=== PATIENT | male | born 1950 | race Caucasian/White ===

== ENCOUNTER 2017-09-27 14:25 | Observation (INO) | payer MEDICARE, OTHER ==
[2017-09-27] MEDS ORDERED: NALOXONE 0.4 MG/ML 1 ML VIAL IV PRN (14:42)
[2017-09-27] MEDS ORDERED: ONDANSETRON 4 MG/2 ML VIAL IVP PRN (14:42)
[2017-09-27] MEDS ORDERED: predniSONE 50 MG TAB PO STA (14:45)
[2017-09-27] MEDS ORDERED: ALBUTEROL NEBULIZED 2.5 MG/3 ML INHALATION PRN (14:45)
--- NOTE | 2017-09-27 14:52 | ED ---
General Adult HPI - General Chief complaint: Chest Pain Stated complaint: Chest Pain Time Seen by Provider: 09/27/17 14:26 Source: patient, EMS, RN notes reviewed, old records reviewed Mode of arrival: EMS Limitations: no limitations - History of Present Illness Initial comments: 67-year-old male presents as a transfer from [facility] for evaluation of chest pain. Patient has history of COPD, reports a sharp left- sided chest pain which travels through to his back. Pain does not radiate to either shoulder or arm. Pain is described as severe. Symptoms have been present for approximately 3 days. Patient does have baseline cough, denies any worsening of his cough. Denies fever or chills. Denies diaphoresis. Patient has lower extremity swelling which she states is chronic. No history of CAD. Patient was sent for evaluation by cardiology. 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 - Related Data Home Medications Medication Instructions Recorded Confirmed Dipyridamole-Aspirin 200-25 mg 1 each PO BID 03/08/14 06/08/15 [Aggrenox 25MG -200MG] Multivitamins, Thera [Multivitamin 1 tab PO DAILY 03/08/14 06/08/15 (formulary)] Omeprazole 40 mg PO DAILY PRN 03/08/14 06/08/15 Aclidinium [place] [Tudorza 1 puff INHALATION RT-BID 06/08/15 06/08/15 Pressair] Atorvastatin [Lipitor] 40 mg PO DAILY 06/08/15 06/08/15 Fluticasone/Salmeterol [Advair 1 puff INHALATION RT-BID 06/08/15 06/08/15 250-50 Diskus] Ipratropium-Albuterol Nebulize 3 ml INHALATION RT-TID PRN 06/08/15 06/08/15 [Duoneb 0.5 mg-3 mg/3 ml Soln] Nicotine 7Mg/24Hr Patch [Habitrol] 1 patch TRANSDERM DAILY 06/08/15 06/08/15 Previous Rx's Medication Instructions Recorded Azithromycin [Zithromax] 250 mg PO DAILY 3 Days tab 06/11/15 predniSONE 60 mg PO DAILY 3 Days tab 06/11/15 Allergies Allergy/AdvReac Type Severity Reaction Status Date / Time No Known Allergies Allergy Verified 06/08/15 17:55 Review of Systems ROS Statement: Those systems with pertinent positive or pertinent negative responses have been documented in the HPI. ROS Other: All systems not noted in ROS Statement are negative. Past Medical History Past Medical History: CVA/TIA, Hypertension, Osteoarthritis (OA) Additional Past Medical History / Comment(s): chronic back pain, PTSD combat related, Hiatal Hernia, pvd, tia, tested 2013 for hiv(neg) per pt.stated carries antibodies for hepatitis a and b .HAS HAD DIFFICULTY SLEEPING FOR PAST 2 WEEKS D/T BREATHING PROBLEM. History of Any Multi-Drug Resistant Organisms: None Reported Past Surgical History: Adenoidectomy, Cholecystectomy, Tonsillectomy Additional Past Surgical History / Comment(s): deviated septum sx,rectal fissure surgery, hemorrhoidectomy,2010 lt leg sx-has loly in place. Past Anesthesia/Blood Transfusion Reactions: Motion Sickness Additional Past Anesthesia/Blood Transfusion Reaction / Comment(s): vertigo Past Psychological History: Anxiety, Depression, PTSD Smoking Status: Current some day smoker Past Alcohol Use History: None Reported Past Drug Use History: Marijuana - Past Family History Father Additional Family Medical History / Comment(s): father in airplane crash when in [employer]. pt only knows that alcoholism ran in his family Brother Family Medical History: Cancer Additional Family Medical History / Comment(s): Pancreatic Cancer Mother Family Medical History: Diabetes Mellitus General Exam Limitations: no limitations General appearance: alert, in no apparent distress Head exam: Present: atraumatic, normocephalic Eye exam: Present: normal appearance, PERRL ENT exam: Present: normal exam, normal oropharynx Neck exam: Present: normal inspection. Absent: tenderness, meningismus Respiratory exam: Present: wheezes. Absent: respiratory distress, rales, chest wall tenderness, accessory muscle use Cardiovascular Exam: Present: regular rate, normal rhythm GI/Abdominal exam: Present: soft. Absent: distended, tenderness Extremities exam: Present: pedal edema. Absent: calf tenderness Back exam: Present: normal inspection, full ROM Neurological exam: Present: alert, oriented X3, CN II-XII intact. Absent: motor sensory deficit Psychiatric exam: Present: normal affect, normal mood Skin exam: Present: warm, dry, intact. Absent: cyanosis, diaphoretic Course Vital Signs 09/27/17 14:26 Temperature 97.4 F L Pulse Rate 91 Respiratory 20 Rate Blood Pressure 155/72 O2 Sat by Pulse 96 Oximetry EKG Findings - EKG Comments: EKG Findings:: EKG shows normal sinus rhythm, low voltage QRS, ventricular rate 84, [place] interval 150, QRS duration 64, QTC 44, no ST segment elevation, appears unchanged from EKG performed earlier today Medical Decision Making - Medical Decision Making 59-year-old male presenting for evaluation of chest pain. Patient was transferred from [facility] for cardiology evaluation. EKG is repeated in the emergency department, no significant change. Patient's pain is atypical. Laboratory studies reviewed from [place], white blood cell count 10.2 which is normal, hemoglobin stable 14.6, BNP 33, sodium 137, potassium 4.3 , creatinine 1.1, troponin was negative. Influenza negative. Lipase [address] angiography was obtained, negative for PE or dissection. Chest x -ray read is unavailable and images are not able to be loaded at this time. I will attempt to obtain chest x-ray read. Patient will be admitted for further evaluation of chest pain, cardiology and pulmonology will be placed on consult. Disposition Clinical Impression: Chest pain, COPD exacerbation Disposition: ADMITTED IP TO THIS HOSP Condition: Stable Referrals: Lebron Waters DO [Primary Care Provider] - 1-2 days Decision to Admit Reason: Admit from EC Decision Date: 09/27/17 Decision Time: 14:51
[2017-09-27] MEDS ORDERED: ALBUTEROL NEBULIZED 2.5 MG/3 ML INHALATION SCH (16:00)
[2017-09-27 17:05] VITALS: BMI 35.5
[2017-09-27] MEDS: MORPHINE SULFATE 2 MG/ML SYRINGE IV PRN (17:14)
[2017-09-27] MEDS ORDERED: NICOTINE 7MG/24HR PATCH TRANSDERM STA (17:20)
[2017-09-27 18:21] LABS: Creatine Kinase 128 U/L (55-170)
[2017-09-27 18:29] LABS: Creatine Kinase MB 1.4 ng/mL (0.0-2.4); Troponin I <0.012 ng/mL (0.000-0.034)
[2017-09-27] MEDS ORDERED: IPRATROPIUM-ALBUTEROL 3 ML NEB INHALATION PRN ×2 (18:37)
[2017-09-27] MEDS: IPRATROPIUM-ALBUTEROL 3 ML NEB INHALATION SCH (19:34)
[2017-09-27] MEDS: SYMBICORT 80-4.5 MCG INHALER INHALATION SCH (19:34)
[2017-09-27 20:16] LABS: Glucose,Whole Blood 205 mg/dL (75-99)
[2017-09-27] MEDS: methylPREDNISolone SOD SUCCI 125 MG/2 ML VIAL IV SCH (20:58)
[2017-09-27] MEDS: INSULIN ASPART 100 UNIT/ML 1 ML 10 ML VIAL SQ SCH (20:59)
[2017-09-27] MEDS: ALPRAZolam 0.25 MG TAB PO SCH (20:59)
[2017-09-28] MEDS: methylPREDNISolone SOD SUCCI 125 MG/2 ML VIAL IV SCH ×3 (00:17→12:28)
[2017-09-28 00:20] LABS: Creatine Kinase 125 U/L (55-170)
[2017-09-28] MEDS: MORPHINE SULFATE 2 MG/ML SYRINGE IV PRN ×2 (00:20→04:28)
[2017-09-28 00:33] LABS: Creatine Kinase MB 1.4 ng/mL (0.0-2.4); Troponin I <0.012 ng/mL (0.000-0.034)
--- NOTE | 2017-09-28 00:40 | P.HPIM ---
History of Present Illness H&P Date: 09/27/17 Chief Complaint: Chest pain Patient is a 67-year-old male with a known history of COPD, TIA, history of smoking, chronic lower except swelling initially presented to [facility] with complaints of left-sided chest pain especially at the lower rib cage and radiates into the back. Which is sharp in nature. Denied any associated nausea vomiting or diaphoresis. No radiation. Pain has been present for the past 3 days. Patient says that he was previously admitted with pancreatitis. Otherwise patient denied any fever or chills. No recent illnesses or sick contacts. Patient says that he did have cardiac workup done about 6 years back at [facility]. Patient follows with pulmonary clinic. Patient was transferred to [facility] for further elevation of the chest pain. CT angiography was negative for any PE or dissection Chest x-ray showed no acute process Initial troponin negative EKG showed sinus rhythm Influenza negative Lipase 175, BNP 33 Review of Systems Constitutional: Patient denies any fever or chills . No generalized weakness or weight loss. Abdomen: Patient denied nausea vomiting and diarrhea and abdominal pain. Cardiovascular: Patient does have left-sided chest pain. No shortness of breath or worsening leg swelling Respiratory: Patient does have cough with no sputum production and shortness of breath Neurologic: Patient denied any numbness or tingling headache. Musculoskeletal: Patient denies any complaints of joint swelling or deformity. Skin: Negative Psychiatric: Negative Endocrine: No heat or cold intolerance. No recent weight gain. Genitourinary: No dysuria or hematuria. All other 14 point ROS negative except the above Past Medical History Past Medical History: CVA/TIA, Hypertension, Osteoarthritis (OA) Additional Past Medical History / Comment(s): chronic back pain, PTSD combat related, Hiatal Hernia, pvd, tia, tested 2013 for hiv(neg) per pt.stated carries antibodies for hepatitis a and b .HAS HAD DIFFICULTY SLEEPING FOR PAST 2 WEEKS D/T BREATHING PROBLEM. History of Any Multi-Drug Resistant Organisms: None Reported Past Surgical History: Adenoidectomy, Cholecystectomy, Tonsillectomy Additional Past Surgical History / Comment(s): deviated septum sx,rectal fissure surgery, hemorrhoidectomy,2010 lt leg sx-has loly in place. Past Anesthesia/Blood Transfusion Reactions: Motion Sickness Additional Past Anesthesia/Blood Transfusion Reaction / Comment(s): vertigo Past Psychological History: Anxiety, Depression, PTSD Smoking Status: Current some day smoker Past Alcohol Use History: None Reported Past Drug Use History: Marijuana - Past Family History Father Additional Family Medical History / Comment(s): father in airplane crash when in [place]. pt only knows that alcoholism ran in his family Brother Family Medical History: Cancer Additional Family Medical History / Comment(s): Pancreatic Cancer Mother Family Medical History: Diabetes Mellitus Medications and Allergies Home Medications Medication Instructions Recorded Confirmed Type Dipyridamole-Aspirin 200-25 mg 1 cap PO BID 03/08/14 09/27/17 History [Aggrenox 25MG -200MG] Multivitamins, Thera [Multivitamin 1 tab PO DAILY 03/08/14 09/27/17 History (formulary)] Fluticasone/Salmeterol [Advair 1 puff INHALATION RT-BID 06/08/15 09/27/17 History 250-50 Diskus] ALPRAZolam [Xanax] 0.25 mg PO DAILY 09/27/17 09/27/17 History Atorvastatin [Lipitor] 40 mg PO HS 09/27/17 09/27/17 History Fluticasone Nasal [place] [Flonase 2 spr EA NOSTRIL DAILY PRN 09/27/17 09/27/17 History Nasal [place]] Ipratropium/Albuterol Sulfate 1 puff INHALATION QID 09/27/17 09/27/17 History [Combivent Respimat Inhaler] Omeprazole [PriLOSEC] 20 mg PO AC-BRKFST 09/27/17 09/27/17 History Spironolactone [Aldactone] 25 mg PO DAILY 09/27/17 09/27/17 History guaiFENesin SYRUP 100MG/5ML 200 mg PO Q6H PRN 09/27/17 09/27/17 History [Robitussin] Allergies Allergy/AdvReac Type Severity Reaction Status Date / Time No Known Allergies Allergy Verified 09/27/17 14:51 Physical Exam Vitals: Vital Signs Temp Pulse Resp BP Pulse Ox 09/27/17 14:26 97.4 F L 91 20 155/72 96 Intake and Output 09/27/17 09/27/17 09/27/17 06:59 14:59 22:59 Other: Weight 99.79 kg Patient Weight 09/28/17 06:59 Weight 99.79 kg PHYSICAL EXAMINATION: Patient is lying in the bed comfortably, no acute distress, awake alert and oriented.. HEENT: Normocephalic. Neck is supple. Pupils reactive. Nostrils clear. Oral cavity is moist. Ears reveal no drainage. Neck reveals no JVD, carotid bruits, or thyromegaly. CHEST EXAMINATION: Trachea is central. Symmetrical expansion. Bilateral diminished air entry and wheezing positive CARDIAC: Normal S1, S2 with no gallops. No murmurs ABDOMEN: Soft. Bowel sounds normal. No organomegaly. No abdominal bruits. Extremities: 2+ edema. No clubbing or cyanosis Neurologically awake, alert, oriented x3 with well-coordinated movements. No focal deficits noted Skin: No rash or skin lesions. Psychiatric: Coperative. Nonsuicidal Musculoskeletal: No joint swelling or deformity. Normal range of motion. Thrombosis Risk Factor Assmnt - DVT/VTE Prophylaxis DVT/VTE Prophylaxis: Pharmacologic Prophylaxis ordered Assessment and Plan Assessment: Atypical chest pain rule out acute coronary syndrome Acute COPD exacerbation Morbid obesity with BMI 35.5 History of TIA Chronic lower swelling likely dependent edema. On spironolactone at home. Anxiety and PTSD History of smoking Osteoarthritis DVT prophylaxis Plan: Patient will be continued on telemetry monitoring along with serial EKG and troponins. Continue with the IV steroids and breathing treatments and follow closely. Continue with Aggrenox. Monitor CBG. Check his B A1c. Further recommendations based on the clinical course. Time with Patient: Greater than 30
[2017-09-28] MEDS: PANTOPRAZOLE 40 MG TABLET PO PRN ×2 (02:29→20:36)
[2017-09-28 06:48] LABS: Basophils % (A) 0 %; Eosinophils % (A) 0 %; HCT 47.5 % (39.0-53.0); HGB 14.5 gm/dL (13.0-17.5); Lymphocytes # (A) 1.7 k/uL (1.0-4.8); Lymphocytes % (A) 14 %; MCH 30.3 pg (25.0-35.0); MCHC 30.6 g/dL (31.0-37.0); MCV 99.1 fL (80.0-100.0); Macrocytosis Slight; Mean Platelet Volume 7.5; Monocytes # (A) 0.4 k/uL (0-1.0); Monocytes % (A) 3 %; Neutrophils # (A) 10.3 k/uL (1.3-7.7); Neutrophils % (A) 83 %; Platelet Count 284 k/uL (150-450); RBC 4.79 m/uL (4.30-5.90); RDW 15.5 % (11.5-15.5); WBC 12.4 k/uL (3.8-10.6)
[2017-09-28 07:23] LABS: ALT 42 U/L (21-72); AST 22 U/L (17-59); Albumin 3.8 g/dL (3.5-5.0); Alkaline Phosphatase 128 U/L (38-126); Anion Gap 7 mmol/L; Blood Urea Nitrogen 22 mg/dL (9-20); Calcium 10.1 mg/dL (8.4-10.2); Carbon Dioxide 30 mmol/L (22-30); Chloride 102 mmol/L (98-107); Glucose 153 mg/dL (74-99); Magnesium 2.2 mg/dL (1.6-2.3); Potassium 5.7 mmol/L (3.5-5.1); Sodium 139 mmol/L (137-145); Total Bilirubin 0.2 mg/dL (0.2-1.3); Total Protein 6.6 g/dL (6.3-8.2)
[2017-09-28] MEDS: IPRATROPIUM-ALBUTEROL 3 ML NEB INHALATION SCH ×4 (07:34→20:59)
[2017-09-28] MEDS: SYMBICORT 80-4.5 MCG INHALER INHALATION SCH ×2 (07:34→20:59)
[2017-09-28 07:40] LABS: Creatine Kinase 155 U/L (55-170)
[2017-09-28 07:50] LABS: Creatine Kinase MB 2.2 ng/mL (0.0-2.4); Troponin I <0.012 ng/mL (0.000-0.034)
[2017-09-28 08:11] LABS: Glucose,Whole Blood 164 mg/dL (75-99)
[2017-09-28] MEDS ORDERED: SPIRONOLACTONE 25 MG TAB PO SCH (09:00)
[2017-09-28] MEDS: ALPRAZolam 0.25 MG TAB PO SCH ×2 (09:20→22:15)
[2017-09-28] MEDS: DIPYRIDAMOLE-ASPIRIN 200-25 MG 1 EACH CPMP.12HR PO SCH ×2 (09:20→20:09)
[2017-09-28] MEDS: NICOTINE 7MG/24HR PATCH TRANSDERM SCH (09:20)
[2017-09-28] MEDS: ATORVASTATIN 40 MG TAB PO SCH (09:20)
[2017-09-28] MEDS: MULTIVITAMINS, THERA 1 EACH TAB PO SCH (09:21)
[2017-09-28] MEDS: HEPARIN SODIUM,PORCINE 5,000 UNIT/ML 1 ML VIAL SQ SCH ×2 (09:24→20:09)
[2017-09-28] MEDS: ACETAMINOPHEN TAB 325 MG TAB PO PRN ×2 (09:32→17:37)
[2017-09-28] MEDS: TORSEMIDE 20 MG TAB PO SCH (09:32)
[2017-09-28] MEDS: INSULIN ASPART 100 UNIT/ML 1 ML 10 ML VIAL SQ SCH ×4 (09:39→20:58)
--- NOTE | 2017-09-28 10:42 | P.CRDCN ---
History of Present Illness Consult date: 09/28/17 History of present illness: Mr. Rodriguez is a pleasant 67-year-old male with past medical history significant for hypertension, TIA, COPD, anxiety, PTSD and chronic tobacco abuse. He denies history of coronary artery disease. He has never seen a computer consultant for any reason. We have been asked to see him in consultation for complaints of chest pain. He presented to [facility] with complaints of chest pain similar to when he has had pneumonia in the past. Pneumonia was ruled out and he was ultimately transferred here for cardiac evaluation. The patient states for the past 3 days he has experienced a pain in the left mid back flank region that radiated around to the anterior chest. This pain is constant, described as pressure and has no aggravating factors. The pain is relieved with IV morphine and goes away completely for approximately 3 hours until it wears off. He denies associated shortness of breath, palpitations, dizziness, nausea, vomiting or diarrhea. He states he suffers from chronic lower extremity edema and is prescribe aldactone per his PCP. The swelling has not been any worse lately. He also denies orthopnea or PND. EKG reveals sinus mechanism with no acute ST or T-wave abnormalities with poor R -wave progression. Chest xray report from [place] reviewed. Laboratory data reviewed, WBC 12.4, hemoglobin 14.5, platelets 284, potassium 5.7, magnesium 2.2, creatinine 0.95, cardiac enzymes negative 3. Most recent echocardiogram performed May 2015 reveals preserved systolic LV function with ejection fraction 60-65%. Current cardiac medications include lipitor 40 mg daily and aldactone 25 mg daily. He continues to smoke approximately half pack per day. Review of Systems CONSTITUTIONAL: Denies fever. Denies chills. EYES: Denies blurred vision. Denies vision changes. Denies eye pain. EARS, NOSE, MOUTH & THROAT: Denies headache. Denies sore throat. Denies ear pain. CARDIOVASCULAR: Denies chest pain. Denies shortness of breath. Denies orthopnea. Denies PND. Denies palpitations. RESPIRATORY: Denies cough. GASTROINTESTINAL: Denies abdominal pain. Denies diarrhea. Denies constipation. Denies nausea. Denies vomiting. MUSCULOSKELETAL: Complains of pain to left mid back/flank region with radiation to left anterior chest wall. INTEGUMENTARY: Denies pruitis. Denies rash. NEUROLOGIC: Denies numbness. Denies tingling. Denies weakness. PSYCHIATRIC: Denies anxiety. Denies depression. ENDOCRINE: Denies fatigue. Denies weight change. Denies polydipsia. Denies polyurina. GENITOURINARY: Denies burning, hematuria or urgency with micturation. HEMATOLOGIC: Denies history of anemia. Denies bleeding. Past Medical History Past Medical History: CVA/TIA, Hypertension, Osteoarthritis (OA) Additional Past Medical History / Comment(s): chronic back pain, PTSD combat related, Hiatal Hernia, pvd, tia, tested 2013 for hiv(neg) per pt.stated carries antibodies for hepatitis a and b .HAS HAD DIFFICULTY SLEEPING FOR PAST 2 WEEKS D/T BREATHING PROBLEM. History of Any Multi-Drug Resistant Organisms: None Reported Past Surgical History: Adenoidectomy, Cholecystectomy, Tonsillectomy Additional Past Surgical History / Comment(s): deviated septum sx,rectal fissure surgery, hemorrhoidectomy,2010 lt leg sx-has loly in place. Past Anesthesia/Blood Transfusion Reactions: Motion Sickness Additional Past Anesthesia/Blood Transfusion Reaction / Comment(s): vertigo Past Psychological History: Anxiety, Depression, PTSD Smoking Status: Current some day smoker Past Alcohol Use History: None Reported Past Drug Use History: Marijuana - Past Family History Father Additional Family Medical History / Comment(s): father in airplane crash when in [place]. pt only knows that alcoholism ran in his family Brother Family Medical History: Cancer Additional Family Medical History / Comment(s): Pancreatic Cancer Mother Family Medical History: Diabetes Mellitus Medications and Allergies Home Medications Medication Instructions Recorded Confirmed Type Dipyridamole-Aspirin 200-25 mg 1 cap PO BID 03/08/14 09/27/17 History [Aggrenox 25MG -200MG] Multivitamins, Thera [Multivitamin 1 tab PO DAILY 03/08/14 09/27/17 History (formulary)] Fluticasone/Salmeterol [Advair 1 puff INHALATION RT-BID 06/08/15 09/27/17 History 250-50 Diskus] ALPRAZolam [Xanax] 0.25 mg PO DAILY 09/27/17 09/27/17 History Atorvastatin [Lipitor] 40 mg PO HS 09/27/17 09/27/17 History Fluticasone Nasal [place] [Flonase 2 spr EA NOSTRIL DAILY PRN 09/27/17 09/27/17 History Nasal [place]] Ipratropium/Albuterol Sulfate 1 puff INHALATION QID 09/27/17 09/27/17 History [Combivent Respimat Inhaler] Omeprazole [PriLOSEC] 20 mg PO AC-BRKFST 09/27/17 09/27/17 History Spironolactone [Aldactone] 25 mg PO DAILY 09/27/17 09/27/17 History guaiFENesin SYRUP 100MG/5ML 200 mg PO Q6H PRN 09/27/17 09/27/17 History [Robitussin] Allergies Allergy/AdvReac Type Severity Reaction Status Date / Time No Known Allergies Allergy Verified 09/27/17 14:51 Physical Exam Vitals: Vital Signs Temp Pulse Pulse Resp BP BP Pulse Ox 09/28/17 08:00 97.8 F 77 16 134/73 93 L 09/28/17 07:47 75 09/28/17 07:36 75 09/28/17 05:12 69 09/28/17 05:06 67 09/28/17 04:00 97.9 F 73 18 146/68 92 L 09/28/17 03:20 18 09/28/17 00:00 18 09/27/17 22:33 82 18 139/75 90 L 09/27/17 20:00 18 09/27/17 19:51 90 09/27/17 19:35 90 94 L 09/27/17 19:13 98 F 86 18 128/67 91 L 09/27/17 16:08 97.9 F 89 16 147/75 94 L 09/27/17 16:00 89 16 09/27/17 15:30 97.5 F L 80 20 140/72 98 09/27/17 14:26 97.4 F L 91 20 155/72 96 Intake and Output 09/27/17 09/28/17 09/28/17 22:59 06:59 14:59 Other: Voiding Method Toilet Toilet Toilet # Voids 1 1 Weight 99.79 kg Blood pressure 134/73 heart rate 77 afebrile. GENERAL: This is a 67-year-old male in no apparent distress at the time of my examination. HEENT: Head is atraumatic, normocephalic. Pupils are equal, round. Sclerae anicteric. Conjunctivae are clear. Mucous membranes of the mouth are moist. Neck is supple. There is no jugular venous distention. No carotid bruit is heard. LUNGS: Clear to auscultation no wheezes, rales or rhonchi. No chest wall tenderness is noted on palpation or with deep breathing. Diminished b/l. HEART: Regular rate and rhythm without murmurs, rubs or gallops. S1 and S2 heard. ABDOMEN: Soft, nontender. Bowel sounds are heard. No organomegaly noted. EXTREMITIES: Bilateral lower extremity, non-pitting edema. No calf tenderness noted. NEUROLOGIC: Patient is awake, alert and oriented x3. VASCULAR: Radial and dorsalis pedis pulses 2+ and strong. Results 09/28/17 06:23 09/28/17 06:23 Cardiac Enzymes 09/27/17 09/27/17 09/28/17 Range/Units 17:40 23:34 06:23 AST 22 (17-59) U/L CK-MB (CK-2) 1.4 1.4 (0.0-2.4) ng/mL Troponin I <0.012 <0.012 (0.000-0.034) ng/mL 09/28/17 Range/Units 06:23 AST (17-59) U/L CK-MB (CK-2) 2.2 (0.0-2.4) ng/mL Troponin I <0.012 (0.000-0.034) ng/mL CBC 09/28/17 Range/Units 06:23 WBC 12.4 H (3.8-10.6) k/uL RBC 4.79 (4.30-5.90) m/uL Hgb 14.5 (13.0-17.5) gm/dL Hct 47.5 (39.0-53.0) % Plt Count 284 (150-450) k/uL Comprehensive Metabolic Panel 09/28/17 Range/Units 06:23 Sodium 139 (137-145) mmol/L Potassium 5.7 H (3.5-5.1) mmol/L Chloride 102 (98-107) mmol/L Carbon Dioxide 30 (22-30) mmol/L BUN 22 H (9-20) mg/dL Creatinine 0.95 (0.66-1.25) mg/dL Glucose 153 H (74-99) mg/dL Calcium 10.1 (8.4-10.2) mg/dL AST 22 (17-59) U/L ALT 42 (21-72) U/L Alkaline Phosphatase 128 H (38-126) U/L Total Protein 6.6 (6.3-8.2) g/dL Albumin 3.8 (3.5-5.0) g/dL Current Medications Generic Name Dose Route Start Last Admin Trade Name Freq PRN Reason Stop Dose Admin Acetaminophen 650 mg 09/27/17 14:42 09/28/17 09:32 Tylenol Tab PO 650 mg Q6HR PRN Administration Mild Pain or Fever > 100.5 Albuterol/Ipratropium 3 ml 09/27/17 18:37 09/28/17 05:04 Duoneb 0.5 Mg-3 Mg/3 Ml Soln INHALATION 3 ml RT-Q2H PRN Administration Shortness Of Breath Or Wheezing Albuterol/Ipratropium 3 ml 09/27/17 18:42 09/28/17 07:34 Duoneb 0.5 Mg-3 Mg/3 Ml Soln INHALATION 3 ml RT-QID DEIDRE Administration Alprazolam 0.25 mg 09/27/17 18:45 09/28/17 09:20 Xanax PO 0.25 mg DAILY DEIDRE Administration Atorvastatin Calcium 40 mg 09/28/17 09:00 09/28/17 09:20 Lipitor PO 40 mg DAILY DEIDRE Administration Budesonide/Formoterol Fumarate 2 puff 09/27/17 20:00 09/28/17 07:34 Symbicort 80-4.5 Mcg Inhaler INHALATION 2 puff RT-BID DEIDRE Administration Dipyridamole/Aspirin 1 each 09/28/17 09:00 09/28/17 09:20 Aggrenox PO 1 each BID DEIDRE Administration Heparin Sodium (Porcine) 5,000 unit 09/28/17 09:00 09/28/17 09:24 Heparin SQ 5,000 unit Q12HR DEIDRE Administration Insulin Aspart 0 unit 09/27/17 21:00 09/28/17 09:39 Novolog SQ 2 unit ACHS DEIDRE Administration Protocol Methylprednisolone Sodium Succinate 60 mg 09/27/17 18:30 09/28/17 05:00 Solu-Medrol IV 60 mg Q6HR DEIDRE Administration Morphine Sulfate 4 mg 09/27/17 14:42 09/28/17 04:28 Morphine Sulfate (Inj) IV 4 mg Q4HR PRN Administration Severe Pain Multivitamins 1 each 09/28/17 09:00 09/28/17 09:21 Theragran PO 1 each DAILY DEIDRE Administration Naloxone HCl 0.2 mg 09/27/17 14:42 Narcan IV Q2M PRN Opioid Reversal Nicotine 1 patch 09/28/17 09:00 09/28/17 09:20 Habitrol 7mg/24hr Patch TRANSDERM 1 patch DAILY DEIDRE Administration Ondansetron HCl 4 mg 09/27/17 14:42 Zofran IVP Q8HR PRN Nausea And Vomiting Pantoprazole Sodium 40 mg 09/27/17 14:45 09/28/17 02:29 Protonix PO 40 mg AC-BRKFST PRN Administration Heartburn Torsemide 20 mg 09/28/17 09:15 09/28/17 09:32 Demadex PO 20 mg DAILY DEIDRE Administration Intake and Output 09/27/17 09/28/17 09/28/17 22:59 06:59 14:59 Other: Voiding Method Toilet Toilet Toilet # Voids 1 1 Weight 99.79 kg 09/28/17 06:23 09/28/17 06:23 Assessment and Plan Assessment: ASSESSMENT 1. Chest pain, atypical with negative cardiac enzymes. Acute coronary event has been ruled out. 2. Dyslidemia 3. Chronic lower extremity edema 4. COPD 5. Chronic tobacco abuse PLAN Obtain 2-D echocardiogram and Doppler study to assess cardiac structure and function. Discontinue spironolactone and start Demadex 20 mg daily. No further cardiac work-up at this time. This is more COPD related to acute exacerbation. Continue with pulmonology consultation as previously ordered. Follow-up with primary care physician upon discharge. Thank you kindly for this consultation. The above impression and plan of care have been discussed and directed by the signing physician. Elli Acuna, nurse practitioner, acting as scribe for signing physician.
[2017-09-28 11:30] LABS: Appearance,Urine Clear (Clear); Bilirubin,Urine Negative (Negative); Blood,Urine Negative (Negative); Color,Urine Light Yellow; Glucose,Urine (UA) Negative (Negative); Ketones,Urine Negative (Negative); Leukocyte Esterase,Urine Trace (Negative); Mucus,Urine Rare /hpf; Nitrite,Urine Negative (Negative); Protein,Urine Negative (Negative); Urobilinogen,Urine <2.0 mg/dL (<2.0); WBC,Urine 2 /hpf (0-5)
[2017-09-28] MEDS ORDERED: DOXYCYCLINE 50 MG CAP PO SCH (11:45)
--- NOTE | 2017-09-28 11:48 | ECHOF ---
Referral Reason:chest pain MEASUREMENTS -------- HEIGHT: 167.6 cm WEIGHT: 99.8 kg BP: 134/73 RVIDd: 2.9 cm (< 3.3) IVSd: 1.2 cm (0.6 - 1.1) LVIDd: 3.7 cm (3.9 - 5.3) LVPWd: 1.1 cm (0.6 - 1.1) IVSs: 1.6 cm LVIDs: 2.1 cm LVPWs: 1.5 cm LA Diam: 2.9 cm (2.7 - 3.8) LAESV Index (A-L): 29.15 ml/m Ao Diam: 3.2 cm (2.0 - 3.7) AV Cusp: 2.4 cm (1.5 - 2.6) MV EXCURSION: 13.059 mm (> 18.000) MV EF SLOPE: 63 mm/s (70 - 150) EPSS: 0.4 cm MV E Grayson: 0.99 m/s MV DecT: 251 ms MV A Grayson: 1.16 m/s MV E/A Ratio: 0.86 AV maxP.01 mmHg AV meanP.79 mmHg FINDINGS -------- Sinus rhythm. This was a technically good study. The left ventricular size is normal. There is borderline concentric left ventricular hypertrophy. Overall left ventricular systolic function is normal with, an EF between 60 - 65 %. The right ventricle is normal in size. LA is midly dilated 29-33ml/m2. The right atrium is normal in size. There is mild aortic valve sclerosis. Mild mitral annular calcification present. There is trace mitral regurgitation. No regurgitation noted Trace/mild (physiologic) pulmonic regurgitation. The aortic root size is normal. Normal inferior vena cava with normal inspiratory collapse consistent with estimated right atrial pre ssure of 5 mmHg. There is no pericardial effusion. CONCLUSIONS -------- 1. Sinus rhythm. 2. This was a technically good study. 3. The left ventricular size is normal. 4. There is borderline concentric left ventricular hypertrophy. 5. Overall left ventricular systolic function is normal with, an EF between 60 - 65 %. 6. The right ventricle is normal in size. 7. LA is midly dilated 29-33ml/m2. 8. The right atrium is normal in size. 9. There is mild aortic valve sclerosis. 10. Mild mitral annular calcification present. 11. There is trace mitral regurgitation. 12. No regurgitation noted 13. Trace/mild (physiologic) pulmonic regurgitation. 14. The aortic root size is normal. 15. Normal inferior vena cava with normal inspiratory collapse consistent with estimated right atrial pressure of 5 mmHg. 16. There is no pericardial effusion. LOCKSTITCH POCKET SETTER: Melissa Hernandez RDCS
[2017-09-28 12:21] LABS: Glucose,Whole Blood 236 mg/dL (75-99)
[2017-09-28 12:23] LABS: Hemoglobin A1C 6.1 % (4.0-6.0)
--- NOTE | 2017-09-28 14:52 | P.CNPUL ---
History of Present Illness Consult date: 09/28/17 Requesting physician: Lit Winter Reason for consult: cough, chest pain, COPD Chief complaint: Left posterior lower chest pain History of present illness: Anil is a 67-year-old white male patient that sees Dr. Leonardo in our office for his history of moderately severe COPD, with a baseline FEV1 of 53% of predicted value, presented to the [facility] on 09/27/2017 with complaints of left posterior chest wall pain, described it as burning, coming in waves. Denied any fever, or chills. His discomfort did not change with deep inspiration. He denies any increased coughing from his usual baseline, denied any increased shortness of breath. Does have some baseline shortness of breath. No nausea or vomiting. No abdominal pain no symptoms of dysuria, urinary frequency or urgency. Denies any sick contacts. Denies any increased sputum production or hemoptysis. Denies any wheezing. He is a current smoker, currently down to 2 less than a pack a day. Did complain of some increased swelling in his lower legs. Does not wear oxygen at home, his maintenance inhalers include Advair and Combivent respimat inhaler. He did have a CTA chest at the [facility] which showed no evidence for pulmonary embolism, no thoracic aneurysm, no lymphadenopathy, no pleural effusion, and no pneumonia, he was positive for mild cardiomegaly and minimal atelectasis and right middle lobe. Influenza screen was negative, urinalysis showed slightly cloudy urine with a small amount of leukocyte esterase, negative bacteria. Does have an underlying history of obstructive sleep apnea, supposed to have a polysomnography test, does not currently have a sleep apnea device at home. Lab work shows WBC of 12.4, hemoglobin 14.5, sodium 139, potassium is 5.7, BUN of 22, and creatinine of 0.95. Troponins were negative 3. EKG showed sinus mechanism with no acute ST or T-wave abnormalities with poor R-wave progression. Cardiology was consulted for evaluation of his chest pain. Review of Systems All systems: negative Constitutional: Denies chills, Denies fever Eyes: denies blurred vision, denies pain Ears, nose, mouth and throat: Denies headache, Denies sore throat Cardiovascular: Denies chest pain, Denies shortness of breath Respiratory: Denies cough Gastrointestinal: Denies abdominal pain, Denies diarrhea, Denies nausea, Denies vomiting Musculoskeletal: Denies myalgias Integumentary: Denies pruritus, Denies rash Neurological: Denies numbness, Denies weakness Psychiatric: Denies anxiety, Denies depression Endocrine: Denies fatigue, Denies weight change Past Medical History Past Medical History: CVA/TIA, Hypertension, Osteoarthritis (OA) Additional Past Medical History / Comment(s): chronic back pain, PTSD combat related, Hiatal Hernia, pvd, tia, tested 2013 for hiv(neg) per pt.stated carries antibodies for hepatitis a and b .HAS HAD DIFFICULTY SLEEPING FOR PAST 2 WEEKS D/T BREATHING PROBLEM. History of Any Multi-Drug Resistant Organisms: None Reported Past Surgical History: Adenoidectomy, Cholecystectomy, Tonsillectomy Additional Past Surgical History / Comment(s): deviated septum sx,rectal fissure surgery, hemorrhoidectomy,2010 lt leg sx-has loly in place. Past Anesthesia/Blood Transfusion Reactions: Motion Sickness Additional Past Anesthesia/Blood Transfusion Reaction / Comment(s): vertigo Past Psychological History: Anxiety, Depression, PTSD Smoking Status: Current some day smoker Past Alcohol Use History: None Reported Past Drug Use History: Marijuana - Past Family History Father Additional Family Medical History / Comment(s): father in airplane crash when in [place]. pt only knows that alcoholism ran in his family Brother Family Medical History: Cancer Additional Family Medical History / Comment(s): Pancreatic Cancer Mother Family Medical History: Diabetes Mellitus Medications and Allergies Home Medications Medication Instructions Recorded Confirmed Type Dipyridamole-Aspirin 200-25 mg 1 cap PO BID 03/08/14 09/27/17 History [Aggrenox 25MG -200MG] Multivitamins, Thera [Multivitamin 1 tab PO DAILY 03/08/14 09/27/17 History (formulary)] Fluticasone/Salmeterol [Advair 1 puff INHALATION RT-BID 06/08/15 09/27/17 History 250-50 Diskus] ALPRAZolam [Xanax] 0.25 mg PO DAILY 09/27/17 09/27/17 History Atorvastatin [Lipitor] 40 mg PO HS 09/27/17 09/27/17 History Fluticasone Nasal [place] [Flonase 2 spr EA NOSTRIL DAILY PRN 09/27/17 09/27/17 History Nasal [place]] Ipratropium/Albuterol Sulfate 1 puff INHALATION QID 09/27/17 09/27/17 History [Combivent Respimat Inhaler] Omeprazole [PriLOSEC] 20 mg PO AC-BRKFST 09/27/17 09/27/17 History Spironolactone [Aldactone] 25 mg PO DAILY 09/27/17 09/27/17 History guaiFENesin SYRUP 100MG/5ML 200 mg PO Q6H PRN 09/27/17 09/27/17 History [Robitussin] Allergies Allergy/AdvReac Type Severity Reaction Status Date / Time No Known Allergies Allergy Verified 09/27/17 14:51 Physical Exam Vitals: Vital Signs Temp Pulse Pulse Resp BP BP Pulse Ox 09/28/17 08:00 97.8 F 77 16 134/73 93 L 09/28/17 07:47 75 09/28/17 07:36 75 09/28/17 05:12 69 09/28/17 05:06 67 09/28/17 04:00 97.9 F 73 18 146/68 92 L 09/28/17 03:20 18 09/28/17 00:00 18 09/27/17 22:33 82 18 139/75 90 L 09/27/17 20:00 18 09/27/17 19:51 90 09/27/17 19:35 90 94 L 09/27/17 19:13 98 F 86 18 128/67 91 L 09/27/17 16:08 97.9 F 89 16 147/75 94 L 09/27/17 16:00 89 16 09/27/17 15:30 97.5 F L 80 20 140/72 98 09/27/17 14:26 97.4 F L 91 20 155/72 96 Intake and Output 09/27/17 09/28/17 09/28/17 22:59 06:59 14:59 Other: Voiding Method Toilet Toilet Toilet # Voids 1 1 Weight 99.79 kg GENERAL EXAM: Alert, active, comfortable in no apparent distress. HEAD: Normocephalic/atraumatic. EYES: Normal reaction of pupils, equal size. Conjunctiva pink, sclera white. NOSE: Clear with pink turbinates. THROAT: No erythema or exudates. NECK: No masses, no JVD, no thyroid enlargement, no adenopathy. CHEST: No chest wall deformity. Symmetrical expansion. LUNGS: Equal air entry with no crackles, wheeze, rhonchi or dullness. Lung sounds are clear, diminished at the bases. CVS: Regular rate and rhythm, normal S1 and S2, no gallops, no murmurs, no rubs ABDOMEN: Soft, nontender. No hepatosplenomegaly, normal bowel sounds, no guarding or rigidity. EXTREMITIES: No clubbing, no cyanosis, 2+ pulses and upper and lower extremities. Bilateral lower extremities are positive for 1+ swelling, with redness and scaly cracking skin MUSCULOSKELETAL: Muscle strength and tone normal. SPINE: No scoliosis or deformity SKIN: No rashes CENTRAL NERVOUS SYSTEM: Alert and oriented -3. No focal deficits, tone is normal in all 4 extremities. PSYCHIATRIC: Alert and oriented -3. Appropriate affect. Intact judgment and insight. Results - Laboratory Findings CBC and BMP: 09/28/17 06:23 09/28/17 06:23 Abnormal lab findings: Abnormal Labs 09/27/17 09/28/17 09/28/17 20:14 06:23 06:23 WBC 12.4 H MCHC 30.6 L Neutrophils # 10.3 H Potassium 5.7 H BUN 22 H Glucose 153 H POC Glucose (mg/dL) 205 H Alkaline Phosphatase 128 H Ur Leukocyte Esterase Urine Mucus 09/28/17 09/28/17 08:08 11:14 WBC MCHC Neutrophils # Potassium BUN Glucose POC Glucose (mg/dL) 164 H Alkaline Phosphatase Ur Leukocyte Esterase Trace H Urine Mucus Rare H - Diagnostic Findings Additional studies: CTA results from the [facility] reviewed, twelve-lead EKG, urinalysis , lab work from the [facility] reviewed. Assessment and Plan Plan: Asthma: #1. Atypical chest pain of unclear etiology, likely musculoskeletal in nature. Patient describes left posterior chest wall pain, CTA chest done the [facility] on 09/27/2017 showed no evidence of pneumonia, no evidence of pulmonary embolism, no thoracic aneurysm, no lymphadenopathy, no pleural effusion. Was positive for mild cardiomegaly and minimal atelectasis and right middle lobe. Cardiology has evaluated the patient, trops were negative 3. No significant leukocytosis, influenza screen was negative, chest x-ray showed no acute process #2. Moderately severe COPD, with a baseline FEV1 of 53% of predicted value. #3. Nicotine dependence, ongoing, currently down to less than a day. #4. Osteoarthritis #5. Hypertension #6. History of PTSD, anxiety, depression #7. No hernia #8. Obstructive sleep apnea, awaiting sleep study Plan Lab work, CTA and chest x-ray were reviewed, there is no evidence of any active pulmonary process. Smoking cessation was again strongly advised. Patient has received some IV doses of Solu-Medrol, feeling better. Cardiology consultation was reviewed. Patient can be discharged home today. I performed a history & physical examination of the patient and discussed their management with my nurse practitioner, Miranda Flannery. I reviewed the nurse practitioner's note and agree with the documented findings and plan of care. Lung sounds are clear. The findings and the impression was discussed with the patient. I attest to the documentation by the nurse practitioner. Time with Patient: Greater than 30
[2017-09-28 17:02] LABS: Glucose,Whole Blood 192 mg/dL (75-99)
[2017-09-28] MEDS: predniSONE 20 MG TAB PO SCH (17:37)
[2017-09-28 20:53] LABS: Glucose,Whole Blood 205 mg/dL (75-99)
[2017-09-28 22:22] VITALS: RESP 18
--- NOTE | 2017-09-29 01:00 | P.PN ---
Subjective Progress Note Date: 09/28/17 Principal diagnosis: COPD with exacerbation Patient is a 67-year-old male with a known history of COPD, TIA, history of smoking, chronic lower except swelling initially presented to [facility] with complaints of left-sided chest pain especially at the lower rib cage and radiates into the back. Which is sharp in nature. Denied any associated nausea vomiting or diaphoresis. No radiation. Pain has been present for the past 3 days. Patient says that he was previously admitted with pancreatitis. Otherwise patient denied any fever or chills. No recent illnesses or sick contacts. Patient says that he did have cardiac workup done about 6 years back at [facility]. Patient follows with pulmonary clinic. Patient was transferred to [facility] for further elevation of the chest pain. CT angiography was negative for any PE or dissection Chest x-ray showed no acute process Initial troponin negative EKG showed sinus rhythm Influenza negative Lipase 175, BNP 33 09/28/2017 Patient's breathing status is much improved. Cardiac workup including serial EKG and troponins have been negative. Patient is still hyperkalemic. Spironolactone has been changed to torsemide. No further workup recommended by cardiology and pulmonary. Steroids changed to by mouth. HB A1c 6.1 Otherwise patient's says that he is feeling weak today. Overall improving. No acute overnight issues. All other review of systems negative except above Current medications reviewed Objective - Vital Signs Vital signs: Vital Signs Temp 98.7 F 09/28/17 20:00 Pulse 86 09/28/17 21:12 Resp 18 09/28/17 20:00 BP 150/80 09/28/17 20:00 Pulse Ox 94 L 09/28/17 20:00 Intake & Output 09/28/17 09/28/17 09/29/17 06:59 18:59 06:59 Intake Total 236 Balance 236 Intake: Oral 236 Other: Voiding Method Toilet Toilet Toilet # Voids 1 1 - Exam PHYSICAL EXAMINATION: Patient is lying in the bed comfortably, no acute distress, awake alert and oriented.. HEENT: Normocephalic. Neck is supple. Pupils reactive. Nostrils clear. Oral cavity is moist. Ears reveal no drainage. Neck reveals no JVD, carotid bruits, or thyromegaly. CHEST EXAMINATION: Trachea is central. Symmetrical expansion. Diminished air entry basally. No wheezing noted CARDIAC: Normal S1, S2 with no gallops. No murmurs ABDOMEN: Soft. Obese Bowel sounds normal. No organomegaly. No abdominal bruits. Extremities: reveal no edema. No clubbing or cyanosis Neurologically awake, alert, oriented x3 with well-coordinated movements. No focal deficits noted Skin: No rash or skin lesions. Psychiatric: Cooperative. Nonsuicidal Musculoskeletal: No joint swelling or deformity. Normal range of motion. - Labs CBC & Chem 7: 09/28/17 06:23 09/28/17 06:23 Labs: Abnormal Lab Results - Last 24 Hours (Table) 09/28/17 09/28/17 09/28/17 Range/Units 06:23 06:23 06:23 WBC 12.4 H (3.8-10.6) k/uL MCHC 30.6 L (31.0-37.0) g/dL Neutrophils # 10.3 H (1.3-7.7) k/uL Potassium 5.7 H (3.5-5.1) mmol/L BUN 22 H (9-20) mg/dL Glucose 153 H (74-99) mg/dL POC Glucose (mg/dL) (75-99) mg/dL Hemoglobin A1c 6.1 H (4.0-6.0) % Alkaline Phosphatase 128 H (38-126) U/L Ur Leukocyte Esterase (Negative) Urine Mucus (None) /hpf 09/28/17 09/28/17 09/28/17 Range/Units 08:08 11:14 12:02 WBC (3.8-10.6) k/uL MCHC (31.0-37.0) g/dL Neutrophils # (1.3-7.7) k/uL Potassium (3.5-5.1) mmol/L BUN (9-20) mg/dL Glucose (74-99) mg/dL POC Glucose (mg/dL) 164 H 236 H (75-99) mg/dL Hemoglobin A1c (4.0-6.0) % Alkaline Phosphatase (38-126) U/L Ur Leukocyte Esterase Trace H (Negative) Urine Mucus Rare H (None) /hpf 09/28/17 09/28/17 Range/Units 17:01 20:50 WBC (3.8-10.6) k/uL MCHC (31.0-37.0) g/dL Neutrophils # (1.3-7.7) k/uL Potassium (3.5-5.1) mmol/L BUN (9-20) mg/dL Glucose (74-99) mg/dL POC Glucose (mg/dL) 192 H 205 H (75-99) mg/dL Hemoglobin A1c (4.0-6.0) % Alkaline Phosphatase (38-126) U/L Ur Leukocyte Esterase (Negative) Urine Mucus (None) /hpf Microbiology - Last 24 Hours (Table) 09/28/17 16:08 Urine Culture - Preliminary Urine,Voided Assessment and Plan Assessment: Atypical chest pain, ruled out acute coronary syndrome Acute COPD exacerbation. Improving Morbid obesity with BMI 35.5 History of TIA Chronic lower swelling likely dependent edema. On spironolactone at home- changed to torsemide due to hyperkalemia. Anxiety and PTSD History of smoking Osteoarthritis DVT prophylaxis Plan: Patient will be continued on telemetry monitoring . Serial EKG and troponins negative. Continue with prednisone and breathing treatments and follow closely. Continue with Aggrenox. Monitor CBG. Further recommendations based on the clinical course. Anticipate discharged tomorrow. Time with Patient: Greater than 30
[2017-09-29] MEDS: IPRATROPIUM-ALBUTEROL 3 ML NEB INHALATION SCH ×2 (07:34→11:38)
[2017-09-29] MEDS: SYMBICORT 80-4.5 MCG INHALER INHALATION SCH (07:34)
[2017-09-29 07:36] LABS: Glucose,Whole Blood 105 mg/dL (75-99)
[2017-09-29] MEDS: INSULIN ASPART 100 UNIT/ML 1 ML 10 ML VIAL SQ SCH ×2 (07:59→12:46)
[2017-09-29] MEDS: DIPYRIDAMOLE-ASPIRIN 200-25 MG 1 EACH CPMP.12HR PO SCH (08:01)
[2017-09-29] MEDS: ATORVASTATIN 40 MG TAB PO SCH (08:01)
[2017-09-29] MEDS: ACETAMINOPHEN TAB 325 MG TAB PO PRN (08:01)
[2017-09-29] MEDS: MULTIVITAMINS, THERA 1 EACH TAB PO SCH (08:01)
[2017-09-29] MEDS: TORSEMIDE 20 MG TAB PO SCH (08:01)
[2017-09-29] MEDS: NICOTINE 7MG/24HR PATCH TRANSDERM SCH (08:02)
[2017-09-29] MEDS: predniSONE 20 MG TAB PO SCH (08:02)
[2017-09-29 08:04] VITALS: BP 150/69; TEMP 98
[2017-09-29] MEDS: ALPRAZolam 0.25 MG TAB PO SCH (08:04)
[2017-09-29] MEDS: HEPARIN SODIUM,PORCINE 5,000 UNIT/ML 1 ML VIAL SQ SCH (09:28)
--- NOTE | 2017-09-29 10:46 | P.PN ---
Subjective Progress Note Date: 09/29/17 Principal diagnosis: Atypical chest pain of unclear etiology, left posterior lower chest discomfort.COPD. Anil is a 67-year-old white male patient that sees Dr. Leonardo in our office for his history of moderately severe COPD, with a baseline FEV1 of 53% of predicted value, presented to the [facility] on 09/27/2017 with complaints of left posterior chest wall pain, described it as burning, coming in waves. Denied any fever, or chills. His discomfort did not change with deep inspiration. He denies any increased coughing from his usual baseline, denied any increased shortness of breath. Does have some baseline shortness of breath. No nausea or vomiting. No abdominal pain no symptoms of dysuria, urinary frequency or urgency. Denies any sick contacts. Denies any increased sputum production or hemoptysis. Denies any wheezing. He is a current smoker, currently down to 2 less than a pack a day. Did complain of some increased swelling in his lower legs. Does not wear oxygen at home, his maintenance inhalers include Advair and Combivent respimat inhaler. He did have a CTA chest at the [facility] which showed no evidence for pulmonary embolism, no thoracic aneurysm, no lymphadenopathy, no pleural effusion, and no pneumonia, he was positive for mild cardiomegaly and minimal atelectasis and right middle lobe. Influenza screen was negative, urinalysis showed slightly cloudy urine with a small amount of leukocyte esterase, negative bacteria. Does have an underlying history of obstructive sleep apnea, supposed to have a polysomnography test, does not currently have a sleep apnea device at home. Lab work shows WBC of 12.4, hemoglobin 14.5, sodium 139, potassium is 5.7, BUN of 22, and creatinine of 0.95. Troponins were negative 3. EKG showed sinus mechanism with no acute ST or T-wave abnormalities with poor R-wave progression. Cardiology was consulted for evaluation of his chest pain. On 2017 patient seen in follow-up on observation unit. From pulmonary standpoint he denies any increased shortness of breath, increased cough, wheezing or sputum production. vital signs are stable, patient is afebrile, currently on room air with O2 sat at 93%. Respirations are even and nonlabored. Lung sounds are clear to auscultation, no rhonchi no wheezes noted. Still complains of left posterior lower chest wall discomfort, he was being medicated with IV morphine and Tylenol. Cardiology has cleared the patient for discharge. From pulmonary standpoint, pulmonary workup did not show any evidence of any acute pulmonary process. Patient can be cleared for discharge from our standpoint as well. He will need to follow-up for his PSG study for his sleep apnea, and see Dr. Leonardo in the office. Objective - Vital Signs Vital signs: Vital Signs Temp 98.0 F 09/29/17 08:00 Pulse 82 09/29/17 08:00 Resp 18 09/29/17 08:00 BP 150/69 09/29/17 08:00 Pulse Ox 93 L 09/29/17 08:00 Intake & Output 09/28/17 09/29/17 09/29/17 18:59 06:59 18:59 Intake Total 236 1000 420 Balance 236 1000 420 Intake: Oral 236 1000 420 Other: Voiding Method Toilet Toilet Toilet # Voids 1 3 - Exam GENERAL EXAM: Alert, active, comfortable in no apparent distress. HEAD: Normocephalic/atraumatic. EYES: Normal reaction of pupils, equal size. Conjunctiva pink, sclera white. NOSE: Clear with pink turbinates. THROAT: No erythema or exudates. NECK: No masses, no JVD, no thyroid enlargement, no adenopathy. CHEST: No chest wall deformity. Symmetrical expansion. LUNGS: Equal air entry with no crackles, wheeze, rhonchi or dullness. Lung sounds are clear, diminished at the bases. CVS: Regular rate and rhythm, normal S1 and S2, no gallops, no murmurs, no rubs ABDOMEN: Soft, nontender. No hepatosplenomegaly, normal bowel sounds, no guarding or rigidity. EXTREMITIES: No clubbing, no cyanosis, 2+ pulses and upper and lower extremities. Bilateral lower extremities are positive for 1+ swelling, with redness and scaly cracking skin MUSCULOSKELETAL: Muscle strength and tone normal. SPINE: No scoliosis or deformity SKIN: No rashes CENTRAL NERVOUS SYSTEM: Alert and oriented -3. No focal deficits, tone is normal in all 4 extremities. PSYCHIATRIC: Alert and oriented -3. Appropriate affect. Intact judgment and insight. - Labs CBC & Chem 7: 09/28/17 06:23 09/28/17 06:23 Labs: Abnormal Lab Results - Last 24 Hours (Table) 09/28/17 09/28/17 09/28/17 Range/Units 06:23 11:14 12:02 POC Glucose (mg/dL) 236 H (75-99) mg/dL Hemoglobin A1c 6.1 H (4.0-6.0) % Ur Leukocyte Esterase Trace H (Negative) Urine Mucus Rare H (None) /hpf 09/28/17 09/28/17 09/29/17 Range/Units 17:01 20:50 07:10 POC Glucose (mg/dL) 192 H 205 H 105 H (75-99) mg/dL Hemoglobin A1c (4.0-6.0) % Ur Leukocyte Esterase (Negative) Urine Mucus (None) /hpf Microbiology - Last 24 Hours (Table) 09/28/17 16:08 Urine Culture - Preliminary Urine,Voided Assessment and Plan Plan: Asthma: #1. Atypical chest pain of unclear etiology, likely musculoskeletal in nature. Patient describes left posterior chest wall pain, CTA chest done the [facility] on 09/27/2017 showed no evidence of pneumonia, no evidence of pulmonary embolism, no thoracic aneurysm, no lymphadenopathy, no pleural effusion. Was positive for mild cardiomegaly and minimal atelectasis and right middle lobe. Cardiology has evaluated the patient, trops were negative 3. No significant leukocytosis, influenza screen was negative, chest x-ray showed no acute process #2. Moderately severe COPD, with a baseline FEV1 of 53% of predicted value. #3. Nicotine dependence, ongoing, currently down to less than a day. #4. Osteoarthritis #5. Hypertension #6. History of PTSD, anxiety, depression #7. No hernia #8. Obstructive sleep apnea, awaiting sleep study Plan From pulmonary standpoint, CTA chest, chest x-ray or pulmonary exam, did not reveal any evidence of acute pulmonary process. Patient is somewhat frustrated that the cause of his left posterior chest pain is not clear. The pain appears to be a clear musculoskeletal in nature. Patient can be discharged home today, he will need to follow up for his sleep study, and Dr. Leonardo in the office. I performed a history & physical examination of the patient and discussed their management with my nurse practitioner, Miranda Flannery. I reviewed the nurse practitioner's note and agree with the documented findings and plan of care. Lung sounds are clear. The findings and the impression was discussed with the patient. I attest to the documentation by the nurse practitioner. Time with Patient: Less than 30
[2017-09-29 11:43] VITALS: PULSE 80
[2017-09-29 11:49] LABS: Glucose,Whole Blood 174 mg/dL (75-99)
--- NOTE | 2017-09-29 22:48 | P.DS ---
Providers Date of admission: 09/27/17 14:44 Expected date of discharge: 09/29/17 Attending physician: Lit Winter Consults: 09/27/17 14:43 Consult Physician Urgent Consulting Provider: Jose Alfredo Nava Consult Reason/Comments: Chest pain Do you want consulting provider notified?: Yes, Notify in am Consult Physician Urgent Consulting Provider: Cuong Leonardo Consult Reason/Comments: COPD, chest pain Do you want consulting provider notified?: Yes, Notify in am [facility] Course: Discharge diagnosis Atypical chest pain, ruled out acute coronary syndrome Acute COPD exacerbation. Improved Left lower rib pain likely musculoskeletal Morbid obesity with BMI 35.5 History of TIA Chronic lower swelling likely dependent edema. On spironolactone at home- changed to torsemide due to hyperkalemia. Anxiety and PTSD History of smoking Osteoarthritis DVT prophylaxis Hospital course Patient is a 67-year-old male with a known history of COPD, TIA, history of smoking, chronic lower except swelling initially presented to [facility] with complaints of left-sided chest pain especially at the lower rib cage and radiates into the back. Which is sharp in nature. Denied any associated nausea vomiting or diaphoresis. No radiation. Pain has been present for the past 3 days. Patient says that he was previously admitted with pancreatitis. Otherwise patient denied any fever or chills. No recent illnesses or sick contacts. Patient says that he did have cardiac workup done about 6 years back at [facility]. Patient follows with pulmonary clinic. Patient was transferred to [facility] for further elevation of the chest pain. CT angiography was negative for any PE or dissection Chest x-ray showed no acute process Initial troponin negative EKG showed sinus rhythm Influenza negative Lipase 175, BNP 33 09/28/2017 Patient's breathing status is much improved. Cardiac workup including serial EKG and troponins have been negative. Patient is still hyperkalemic. Spironolactone has been changed to torsemide. No further workup recommended by cardiology and pulmonary. Steroids changed to by mouth. HB A1c 6.1 09/29/2017 Patient did improve symptomatically. Able to ambulate and is tolerating oral diet. Patient is being discharged home on Torsemide and Pain Medications. Patient was continued on telemetry monitoring . Serial EKG and troponins negative. Continue with prednisone and breathing treatments and followed closely. d with Aggrenox. Monitor CBG. Patient is stable to be discharged home. PHYSICAL EXAMINATION: Patient is lying in the bed comfortably, no acute distress, awake alert and oriented.. HEENT: Normocephalic. Neck is supple. Pupils reactive. Nostrils clear. Oral cavity is moist. Ears reveal no drainage. Neck reveals no JVD, carotid bruits, or thyromegaly. CHEST EXAMINATION: Trachea is central. Symmetrical expansion. Lung swift clear to auscultation and percussion. CARDIAC: Normal S1, S2 with no gallops. No murmurs ABDOMEN: Soft. Bowel sounds normal. No organomegaly. No abdominal bruits. Extremities: reveal no edema. No clubbing or cyanosis Neurologically awake, alert, oriented x3 with well-coordinated movements. No focal deficits noted Skin: No rash or skin lesions. Psychiatric: Coperative. Nonsuicidal Musculoskeletal: No joint swelling or deformity. Normal range of motion. Patient Condition at Discharge: Stable Plan - Discharge Summary Discharge Rx Participant: No New Discharge Prescriptions: New HYDROcodone/APAP 5-325MG [[place] 5-325] 1 tab PO Q6HR PRN #15 tab PRN Reason: Pain Torsemide [Demadex] 20 mg PO DAILY #30 tab Docusate [Colace] 100 mg PO BID PRN #20 capsule PRN Reason: Constipation Continue Dipyridamole-Aspirin 200-25 mg [Aggrenox 25MG -200MG] 1 cap PO BID Multivitamins, Thera [Multivitamin (formulary)] 1 tab PO DAILY Fluticasone/Salmeterol [Advair 250-50 Diskus] 1 puff INHALATION RT-BID Fluticasone Nasal [place] [Flonase Nasal [place]] 2 spr EA NOSTRIL DAILY PRN PRN Reason: Allergy Symptoms Omeprazole [PriLOSEC] 20 mg PO AC-BRKFST Atorvastatin [Lipitor] 40 mg PO HS Ipratropium/Albuterol Sulfate [Combivent Respimat Inhaler] 1 puff INHALATION QID ALPRAZolam [Xanax] 0.25 mg PO DAILY guaiFENesin SYRUP 100MG/5ML [Robitussin] 200 mg PO Q6H PRN PRN Reason: Cough Discontinued Spironolactone [Aldactone] 25 mg PO DAILY Discharge Medication List Dipyridamole-Aspirin 200-25 mg [Aggrenox 25MG -200MG] 1 cap PO BID 03/08/14 [ History] Multivitamins, Thera [Multivitamin (formulary)] 1 tab PO DAILY 03/08/14 [History ] Fluticasone/Salmeterol [Advair 250-50 Diskus] 1 puff INHALATION RT-BID 06/08/15 [History] ALPRAZolam [Xanax] 0.25 mg PO DAILY 09/27/17 [History] Atorvastatin [Lipitor] 40 mg PO HS 09/27/17 [History] Fluticasone Nasal [place] [Flonase Nasal [place]] 2 spr EA NOSTRIL DAILY PRN [History] Ipratropium/Albuterol Sulfate [Combivent Respimat Inhaler] 1 puff INHALATION QID 09/27/17 [History] Omeprazole [PriLOSEC] 20 mg PO AC-BRKFST 09/27/17 [History] guaiFENesin SYRUP 100MG/5ML [Robitussin] 200 mg PO Q6H PRN 09/27/17 [History] Docusate [Colace] 100 mg PO BID PRN #20 capsule 09/29/17 [Rx] HYDROcodone/APAP 5-325MG [[place] 5-325] 1 tab PO Q6HR PRN #15 tab 09/29/17 [Rx] Torsemide [Demadex] 20 mg PO DAILY #30 tab 09/29/17 [Rx] Follow up Appointment(s)/Referral(s): Cuong Leonardo DO [Doctor of Osteopathic Medicine] - 1 Week Lebron Waters DO [Primary Care Provider] - 1-2 days Discharge Disposition: HOME SELF-CARE
== END 2017-09-29 16:25 | disposition home or self-care (01) ==
LOC: EC 14:25 → 6SEL 14:44 → 3SUR 15:34 → 3OBS 09-28 07:08
PROVIDERS: ADMIT Internal Medicine; ATTEND Internal Medicine
DX: R07.89 Other chest pain (principal); J44.1 Chronic obstructive pulmonary disease with (acute) exacerbation; E87.5 Hyperkalemia; I10 Essential (primary) hypertension; I51.7 Cardiomegaly; R07.81 Pleurodynia; G47.33 Obstructive sleep apnea (adult) (pediatric); F17.210 Nicotine dependence, cigarettes, uncomplicated; R22.40 Localized swelling, mass and lump, unspecified lower limb; F43.10 Post-traumatic stress disorder, unspecified; F41.9 Anxiety disorder, unspecified; Z68.35 Body mass index [BMI] 35.0-35.9, adult; E66.01 Morbid (severe) obesity due to excess calories; M19.90 Unspecified osteoarthritis, unspecified site; E78.5 Hyperlipidemia, unspecified; G89.29 Other chronic pain; M54.9 Dorsalgia, unspecified; Z79.02 Long term (current) use of antithrombotics/antiplatelets; Z79.51 Long term (current) use of inhaled steroids; Z79.899 Other long term (current) drug therapy; Z87.19 Personal history of other diseases of the digestive system; Z86.73 Personal history of transient ischemic attack (TIA), and cerebral infarction without residual deficits; Z87.01 Personal history of pneumonia (recurrent); Z80.0 Family history of malignant neoplasm of digestive organs; Z81.1 Family history of alcohol abuse and dependence; Z83.3 Family history of diabetes mellitus
CPT/HCPCS: 99285 ×2; 96372 ×2; 96374; 96375; 96376; 94640 ×6; 94760 ×2; 93005; 93306; 80053; 82550 ×2; 82553 ×2; 83735; 84484 ×2; 85025; 81001; 87086; 83036; G0378 ×5; S4990 ×3; J1644 ×2; J2930 ×2; J2270 ×2; J7512 ×3

== ENCOUNTER → 2019-08-05 | Outpatient (CLI) | payer MEDICARE, OTHER | END | disposition home or self-care (01) | LOC: CPPFTMAIN 13:26 | PROVIDERS: ATTEND Internal Medicine Critical Care Medicine | DX: J44.9 Chronic obstructive pulmonary disease, unspecified (principal); R94.2 Abnormal results of pulmonary function studies | CPT/HCPCS: 94060; 94726; 94729 ==

== ENCOUNTER 2019-09-25 15:46 | Inpatient (IN) | payer MEDICARE, OTHER ==
[2019-09-25] MEDS ORDERED: SODIUM CHLORIDE 0.9% 1,000 ML IV STA (16:01)
[2019-09-25] MEDS ORDERED: NITROGLYCERIN OINT 1 INCH/GM PACKET TOPICAL STA (16:01)
--- NOTE | 2019-09-25 16:06 | ED ---
Chest Pain HPI - General Chief Complaint: Chest Pain Stated Complaint: Chest pain Time Seen by Provider: 09/25/19 15:50 Source: patient, EMS, RN notes reviewed Mode of arrival: EMS Limitations: no limitations - History of Present Illness Initial Comments: This is a 69-year-old male history of COPD TIA cholecystectomy pancreatitis who presents with complaints of the onset about 1 PM today of anterior chest pain it was 8-9/10 severity radiated to both arms she states it was more pressure-like discomfort he did get some shortness of breath with it no fevers chills or sweats does not really get worse with deep breathing does get somewhat worse with exertion. He also states she's been having intermittent episodes of this over the past several weeks. No other current modifying factors. He does say nitroglycerin given by paramedics brought the pain down to a 5/10. MD Complaint: chest pain - Related Data Home Medications Medication Instructions Recorded Confirmed Dipyridamole-Aspirin 200-25 mg 1 cap PO BID 03/08/14 09/27/17 [Aggrenox 25MG -200MG] Multivitamins, Thera [Multivitamin 1 tab PO DAILY 03/08/14 09/27/17 (formulary)] Fluticasone/Salmeterol [Advair 1 puff INHALATION RT-BID 06/08/15 09/27/17 250-50 Diskus] ALPRAZolam [Xanax] 0.25 mg PO DAILY 09/27/17 09/27/17 Atorvastatin [Lipitor] 40 mg PO HS 09/27/17 09/27/17 Fluticasone Nasal [place] [Flonase 2 spr EA NOSTRIL DAILY PRN 09/27/17 09/27/17 Nasal [place]] Ipratropium/Albuterol Sulfate 1 puff INHALATION QID 09/27/17 09/27/17 [Combivent Respimat Inhaler] Omeprazole [PriLOSEC] 20 mg PO AC-BRKFST 09/27/17 09/27/17 guaiFENesin SYRUP 100MG/5ML 200 mg PO Q6H PRN 09/27/17 09/27/17 [Robitussin] Previous Rx's Medication Instructions Recorded Docusate [Colace] 100 mg PO BID PRN #20 capsule 09/29/17 HYDROcodone/APAP 5-325MG [[place] 1 tab PO Q6HR PRN #15 tab 09/29/17 5-325] Torsemide [Demadex] 20 mg PO DAILY #30 tab 09/29/17 Allergies Allergy/AdvReac Type Severity Reaction Status Date / Time No Known Allergies Allergy Verified 09/25/19 15:51 Review of Systems ROS Statement: Those systems with pertinent positive or pertinent negative responses have been documented in the HPI. ROS Other: All systems not noted in ROS Statement are negative. Past Medical History Past Medical History: CVA/TIA, Hypertension, Osteoarthritis (OA) Additional Past Medical History / Comment(s): chronic back pain, PTSD combat related, Hiatal Hernia, pvd, tia, tested 2013 for hiv(neg) per pt.stated carries antibodies for hepatitis a and b .HAS HAD DIFFICULTY SLEEPING FOR PAST 2 WEEKS D/T BREATHING PROBLEM. History of Any Multi-Drug Resistant Organisms: None Reported Past Surgical History: Adenoidectomy, Cholecystectomy, Tonsillectomy Additional Past Surgical History / Comment(s): deviated septum sx,rectal fissure surgery, hemorrhoidectomy,2010 lt leg sx-has loly in place. Past Anesthesia/Blood Transfusion Reactions: Motion Sickness Additional Past Anesthesia/Blood Transfusion Reaction / Comment(s): vertigo Past Psychological History: Anxiety, Depression, PTSD Smoking Status: Current some day smoker Past Alcohol Use History: None Reported Past Drug Use History: Marijuana - Past Family History Father Additional Family Medical History / Comment(s): father in airplane crash when in [place]. pt only knows that alcoholism ran in his family Brother Family Medical History: Cancer Additional Family Medical History / Comment(s): Pancreatic Cancer Mother Family Medical History: Diabetes Mellitus General Exam - General Exam Comments Initial Comments: Is a well-developed well-nourished awake alert oriented times 3 male Limitations: no limitations General appearance: alert, anxious Head exam: Present: atraumatic, normocephalic, normal inspection Eye exam: Present: normal appearance, PERRL, EOMI. Absent: scleral icterus, conjunctival injection, periorbital swelling ENT exam: Present: normal exam, mucous membranes moist Neck exam: Present: normal inspection, full ROM, other (No stridor JVD or bruits). Absent: tenderness, meningismus, lymphadenopathy Respiratory exam: Present: normal lung sounds bilaterally. Absent: respiratory distress, wheezes, rales, rhonchi, stridor Cardiovascular Exam: Present: regular rate, normal rhythm, normal heart sounds. Absent: systolic murmur, diastolic murmur, rubs, gallop, clicks GI/Abdominal exam: Present: soft, normal bowel sounds. Absent: distended, tenderness, guarding, rebound, rigid Extremities exam: Present: normal inspection, full ROM, normal capillary refill. Absent: tenderness, pedal edema, joint swelling, calf tenderness Back exam: Present: normal inspection Neurological exam: Present: alert, oriented X3, CN II-XII intact Psychiatric exam: Present: normal affect, normal mood Skin exam: Present: warm, dry, intact, normal color. Absent: rash Course Vital Signs 09/25/19 09/25/19 09/25/19 15:49 15:51 15:52 Temperature 98.0 F Pulse Rate 74 96 Pulse Rate [ 72 Shank Cutter ] Respiratory 16 16 Rate Blood Pressure 152/90 161/95 O2 Sat by Pulse 98 96 Oximetry 09/25/19 09/25/19 09/25/19 16:00 17:00 17:40 Temperature Pulse Rate 75 71 75 Pulse Rate [ Shank Cutter ] Respiratory 25 H 15 16 Rate Blood Pressure 161/95 153/90 135/85 O2 Sat by Pulse 98 96 98 Oximetry - Reevaluation(s) Reevaluation #1: 09/25/19 18:09 Reevaluation the patient really still had pain EKG does show some nonspecific inferior configuration. This is somewhat different than a previous EKG dated 09/28/17 Chest Pain MDM - MDM I did review the imaging and report no acute findings. Patient does have elevated troponin intermittent pain he was placed on IV heparin and IV nitroglycerin. I did discuss case with Dr. Whitman patient will be monitored. Critical Care Time Critical Care Time: Yes Critical Care Time: 32 minutes of critical care time which was initial presentation with history physical labs x-rays reevaluation the patient review of old charting discussed with the admitting physician Dr. Ruiz also Dr. Whitman. Disposition Clinical Impression: Acute non-ST elevation myocardial infarction (NSTEMI), Chest pain Disposition: ADMITTED IP TO THIS [facility] Condition: Fair Referrals: None,Stated [Primary Care Provider] - 1-2 days
[2019-09-25 16:35] LABS: Basophils # (A) 0.2 k/uL (0-0.2); Basophils % (A) 2 %; Eosinophils # (A) 0.1 k/uL (0-0.7); Eosinophils % (A) 1 %; HCT 45.7 % (39.0-53.0); HGB 15.7 gm/dL (13.0-17.5); Lymphocytes # (A) 2.4 k/uL (1.0-4.8); Lymphocytes % (A) 25 %; MCH 32.4 pg (25.0-35.0); MCHC 34.3 g/dL (31.0-37.0); MCV 94.3 fL (80.0-100.0); Mean Platelet Volume 8.6; Monocytes # (A) 0.6 k/uL (0-1.0); Monocytes % (A) 6 %; Neutrophils # (A) 6.2 k/uL (1.3-7.7); Neutrophils % (A) 64 %; Platelet Count 266 k/uL (150-450); RBC 4.85 m/uL (4.30-5.90); WBC 9.8 k/uL (3.8-10.6)
[2019-09-25 16:49] LABS: INR 0.9 (<1.2); Partial Thromboplastin Time 25.2 sec (22.0-30.0); Prothrombin Time 9.8 sec (9.0-12.0)
[2019-09-25 16:52] LABS: ALT 22 U/L (4-49); AST 28 U/L (17-59); African American GFR (CKD) >90 (>60 ml/min/1.73 sqM); Albumin 3.9 g/dL (3.5-5.0); Alkaline Phosphatase 113 U/L (38-126); Anion Gap 4 mmol/L; Blood Urea Nitrogen 22 mg/dL (9-20); Carbon Dioxide 29 mmol/L (22-30); Chloride 103 mmol/L (98-107); Creatine Kinase 162 U/L (55-170); Glucose 103 mg/dL (74-99); Non-African American GFR(CKD) 81 (>60 ml/min/1.73 sqM); Potassium 4.9 mmol/L (3.5-5.1); Sodium 136 mmol/L (137-145); Total Bilirubin 0.4 mg/dL (0.2-1.3); Total Protein 6.6 g/dL (6.3-8.2)
--- NOTE | 2019-09-25 16:53 | XR ---
EXAMINATION TYPE: XR chest 2V DATE OF EXAM: 09/25/2019 COMPARISON: 06/20/2015 HISTORY: Follow-up pneumonia TECHNIQUE: 2 views FINDINGS: There is some patchy linear density at the lung bases. There is no gross heart failure. The re is coarsening of the lung markings. Heart size is normal. IMPRESSION: Patchy atelectasis at the lung bases appears not significantly different than last exam. No heart failure seen. There is underlying probable pulmonary fibrosis.
[2019-09-25] MEDS ORDERED: HEPARIN SODIUM,PORCINE 5,000 UNIT/ML 1 ML VIAL IV PRN (17:16)
[2019-09-25] MEDS ORDERED: MORPHINE SULFATE 4 MG/ML SYRINGE IVP STA (17:16)
[2019-09-25] MEDS ORDERED: HEPARIN SODIUM,PORCINE 5,000 UNIT/ML 1 ML VIAL IV ONE (17:16)
[2019-09-25] MEDS ORDERED: HYDROmorphone 1 MG/ML 1 ML SYRINGE IVP STA (17:23)
[2019-09-25] MEDS ORDERED: NITROGLYCERIN-D5W PMX 50 MG in DEXTROSE/WATER 1 250ML.BAG IV ONE (17:30)
[2019-09-25] MEDS ORDERED: HEPARIN SOD,PORK IN 0.45% NACL 25,000 UNIT in 0.45% NACL 1 250ML.BAG IV SCH ×2 (17:30→18:00)
[2019-09-25] MEDS ORDERED: NITROGLYCERIN SL TABS 0.4 MG TAB SUBLINGUAL PRN (18:15)
[2019-09-25] MEDS ORDERED: FLUTICASONE 50MCG/SPRAY NASAL 16GM EA NOSTRIL PRN (18:19)
[2019-09-25] MEDS ORDERED: DOCUSATE 100 MG CAP PO PRN (18:19)
[2019-09-25] MEDS ORDERED: METOPROLOL TARTRATE 5 MG/5 ML VIAL IVP STA (18:20)
[2019-09-25] MEDS ORDERED: ONDANSETRON 4 MG/2 ML VIAL IVP STA (19:26)
[2019-09-25] MEDS: SYMBICORT 80-4.5 MCG INHALER INHALATION SCH (19:50)
[2019-09-25] MEDS ORDERED: IPRATROPIUM-ALBUTEROL 3 ML NEB INHALATION SCH (20:00)
[2019-09-25] MEDS ORDERED: ATORVASTATIN 40 MG TAB PO SCH (21:00)
[2019-09-25] MEDS ORDERED: DIPYRIDAMOLE-ASPIRIN 200-25 MG 1 EACH CPMP.12HR PO SCH (21:00)
[2019-09-25] MEDS: NICOTINE 21MG/24HR PATCH TRANSDERM SCH (22:15)
[2019-09-25] MEDS: HYDROcodone/APAP 5-325MG 1 EACH TAB PO PRN (23:28)
[2019-09-26] MEDS: ALPRAZolam 0.25 MG TAB PO SCH (03:46)
[2019-09-26] MEDS: SODIUM CHLORIDE 0.9% 1,000 ML IV SCH (03:48)
[2019-09-26 04:06] LABS: Basophils # (A) 0.2 k/uL (0-0.2); Basophils % (A) 2 %; Eosinophils # (A) 0.1 k/uL (0-0.7); Eosinophils % (A) 1 %; HCT 48.2 % (39.0-53.0); Lymphocytes # (A) 2.7 k/uL (1.0-4.8); Lymphocytes % (A) 27 %; MCH 29.6 pg (25.0-35.0); MCHC 31.1 g/dL (31.0-37.0); MCV 95.4 fL (80.0-100.0); Mean Platelet Volume 7.9; Monocytes # (A) 0.7 k/uL (0-1.0); Monocytes % (A) 6 %; Neutrophils # (A) 6.2 k/uL (1.3-7.7); Neutrophils % (A) 62 %; Platelet Count 283 k/uL (150-450); RBC 5.06 m/uL (4.30-5.90); RDW 14.1 % (11.5-15.5)
[2019-09-26 04:31] LABS: Cholesterol 195 mg/dL (<200); HDL Cholesterol 54 mg/dL (40-60); LDL Cholesterol,Calculated 112 mg/dL (0-99); Triglycerides 147 mg/dL (<150)
[2019-09-26] MEDS: SYMBICORT 80-4.5 MCG INHALER INHALATION SCH ×2 (07:35→20:43)
[2019-09-26] MEDS ORDERED: NITROGLYCERIN SL TABS 0.4 MG TAB SUBLINGUAL PRN ×2 (08:02→12:59)
[2019-09-26] MEDS ORDERED: ASPIRIN 325 MG TAB PO STA (08:02)
[2019-09-26] MEDS ORDERED: ALPRAZolam 0.5 MG TAB PO PRN (08:02)
[2019-09-26] MEDS ORDERED: SODIUM CHLORIDE 0.9% 1,000 ML in EMPTY BAG 1 BAG IV ONE (08:02)
[2019-09-26] MEDS ORDERED: ATORVASTATIN 80 MG TAB PO STA (08:02)
[2019-09-26] MEDS: PANTOPRAZOLE 40 MG TABLET PO SCH (08:41)
[2019-09-26] MEDS: METOPROLOL TARTRATE 12.5 MG TAB PO SCH ×2 (08:41→21:17)
[2019-09-26] MEDS: NICOTINE 21MG/24HR PATCH TRANSDERM SCH (08:41)
[2019-09-26] MEDS: HYDROcodone/APAP 5-325MG 1 EACH TAB PO PRN ×3 (08:52→21:17)
--- NOTE | 2019-09-26 08:52 | P.HPIM ---
History of Present Illness This is a pleasant 69 years old male with past medical history of hypertension, CVA/TIA, COPD, osteoarthritis, sleep apnea on CPAP, chronic back pain, hiatal hernia, peripheral vascular disease, who presents because of chest pain. Patient states that he has mild central and left chest pain suspicious for non- digested for about a month, however over the last 5 days chest pain was getting stronger, more continuous, and radiating to the arms and patient got concerned so decided to come to the hospital. He has mild chest pain this morning with little dyspnea. Patient is currently on heparin and nitro drip No coughing. Patient is supposed to get his CPAP machine around these days. He smokes about 1 pack per day but no alcohol or illicit drugs Lives alone at home. Patient also feels generally weak Vitals are stable. Afebrile. Labs showing unremarkable CBC, INR, BMP, liver enzymes. Patient troponin were trending up 0.38, 1.14, 3.3. EKG: Normal sinus rhythm at [address]-T changes. He has mild ST elevation in inferior leads. Chest x-ray: No acute process. Old basal atelectasis and probable pulmonary fibrosis On admission patient was started on heparin drip and normal saline at 75 mm per hour and nitroglycerin with pain management. Also he is on aspirin 325 mg Review of Systems CONSTITUTIONAL: No fever, no malaise, no fatigue. HEENT: No recent visual problems or hearing problems. Denied any sore throat. CARDIOVASCULAR: No orthopnea, PND, no palpitations, no syncope. PULMONARY: No shortness of breath, no cough, no hemoptysis. GASTROINTESTINAL: No diarrhea, no nausea, no vomiting, no abdominal pain. Normoactive bowel sounds. NEUROLOGICAL: No headaches, no weakness, no numbness. HEMATOLOGICAL: Denies any bleeding or petechiae. GENITOURINARY: Denies any burning micturition, frequency, or urgency. MUSCULOSKELETAL/RHEUMATOLOGICAL: Denies any joint pain, swelling, or any muscle pain. ENDOCRINE: Denies any polyuria or polydipsia. Past Medical History Past Medical History: COPD, CVA/TIA, Hypertension, Osteoarthritis (OA), Sleep Apnea/CPAP/BIPAP Additional Past Medical History / Comment(s): chronic back pain, PTSD combat related, Hiatal Hernia, pvd, tia, tested 2013 for hiv(neg) per pt.stated carries antibodies for hepatitis a and b. History of Any Multi-Drug Resistant Organisms: None Reported Past Surgical History: Adenoidectomy, Cholecystectomy, Tonsillectomy Additional Past Surgical History / Comment(s): deviated septum sx,rectal fissure surgery, hemorrhoidectomy,2010 lt leg sx-has loly in place. Past Anesthesia/Blood Transfusion Reactions: Motion Sickness Additional Past Anesthesia/Blood Transfusion Reaction / Comment(s): vertigo Past Psychological History: Anxiety, Depression, PTSD Additional Psychological History / Comment(s): Non-combat related PTSD . pt lives alone uses a cane when up. has a nurse aide come in 2 times a month is on [email or web address], used to work in [employer]. served in the [employer]. still drives. 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 used to smoke 1 packper day now smokes 1 pack per month Past Drug Use History: Marijuana Additional Drug Use History / Comment(s): none since 1978 - Past Family History Father Additional Family Medical History / Comment(s): father in airplane crash when in [place]. pt only knows that alcoholism ran in his family Brother Family Medical History: Cancer Additional Family Medical History / Comment(s): Pancreatic Cancer Mother Family Medical History: Diabetes Mellitus Medications and Allergies Home Medications Medication Instructions Recorded Confirmed Type Fluticasone/Salmeterol [Advair 1 puff INHALATION RT-BID 06/08/15 09/25/19 History 250-50 Diskus] Fluticasone Nasal [place] [Flonase 2 spr EA NOSTRIL DAILY PRN 09/27/17 09/25/19 History Nasal [place]] Ipratropium/Albuterol Sulfate 1 puff INHALATION RT-QID PRN 09/27/17 09/25/19 History [Combivent Respimat Inhaler] guaiFENesin SYRUP 100MG/5ML 200 mg PO Q6H PRN 09/27/17 09/25/19 History [Robitussin] Naproxen Sodium [Aleve] 220 mg PO BID PRN 09/25/19 09/25/19 History Allergies Allergy/AdvReac Type Severity Reaction Status Date / Time No Known Allergies Allergy Verified 09/25/19 18:41 Physical Exam Vitals: Vital Signs Temp Pulse Pulse Resp BP BP Pulse Ox 09/26/19 03:51 97.8 F 70 18 124/67 96 09/26/19 00:00 98.6 F 66 18 144/71 94 L 09/25/19 20:30 98.6 F 59 L 17 134/74 95 09/25/19 20:18 98.6 F 59 L 18 134/74 95 09/25/19 19:43 80 20 107/73 98 09/25/19 18:40 72 16 142/88 98 09/25/19 17:40 75 16 135/85 98 09/25/19 17:00 71 15 153/90 96 09/25/19 16:00 75 25 H 161/95 98 09/25/19 15:52 72 09/25/19 15:51 98.0 F 96 16 161/95 96 09/25/19 15:49 74 16 152/90 98 Intake and Output 09/25/19 09/26/19 09/26/19 22:59 06:59 14:59 Intake Total 61.142 Output Total 200 Balance -138.858 Intake: Intake, IV Titration 61.142 Amount Heparin Sod,Pork in 0.45% 61.142 NaCl 25,000 unit In 0.45 % NaCl 1 250ml.bag @ 10. 25 UNITS/KG/HR 9.996 mls/ hr IV .Q24H [facility] Rx#: [id number] Output: Urine 200 Other: Voiding Method Urinal Weight 96.2 kg 96.2 kg GENERAL: The patient is alert and oriented x3, not in any acute distress. Well developed, well nourished. HEENT: Pupils are round and equally reacting to light. EOMI. No scleral icterus. No conjunctival pallor. Normocephalic, atraumatic. No pharyngeal erythema. No thyromegaly. CARDIOVASCULAR: S1 and S2 present. No murmurs, rubs, or gallops. PULMONARY: Chest is clear to auscultation, no wheezing or crackles. ABDOMEN: Soft, nontender, nondistended, normoactive bowel sounds. No palpable organomegaly. MUSCULOSKELETAL: No joint swelling or deformity. EXTREMITIES: No cyanosis, clubbing, or pedal edema. NEUROLOGICAL: Gross neurological examination did not reveal any focal deficits. SKIN: No rashes. No petechiae Results CBC & Chem 7: 09/26/19 03:42 09/25/19 15:50 Labs: Abnormal Lab Results - Last 24 Hours (Table) 09/25/19 09/25/19 09/25/19 Range/Units 15:50 15:50 23:05 APTT (22.0-30.0) sec Sodium 136 L (137-145) mmol/L BUN 22 H (9-20) mg/dL Glucose 103 H (74-99) mg/dL Troponin I 0.381 H* 1.140 H* (0.000-0.034) ng/mL LDL Cholesterol, Calc (0-99) mg/dL 09/25/19 09/26/19 09/26/19 Range/Units 23:09 03:42 03:42 APTT 62.9 H (22.0-30.0) sec Sodium (137-145) mmol/L BUN (9-20) mg/dL Glucose (74-99) mg/dL Troponin I 3.320 H* (0.000-0.034) ng/mL LDL Cholesterol, Calc 112 H (0-99) mg/dL Thrombosis Risk Factor Assmnt - Choose All That Apply Any of the Below Risk Factors Present?: Yes Each Factor Represents 1 point: Abnormal pulmonary function (COPD), Obesity (BMI >25) Other Risk Factors: Yes Each Risk Factor Represents 2 Points: Age 61-74 years Thrombosis Risk Factor Assessment Total Risk Factor Score: 4 Thrombosis Risk Factor Assessment Level: Moderate Risk Assessment and Plan Assessment: Acute non-STEMI Hypertension Nicotine dependence and patient agrees to quit the nicotine patch. He is counseled Pulmonary atelectasis and possible fibrosis Osteoarthritis Sleep apnea on CPAP Chronic back pain Hiatal hernia Peripheral vascular disease Plan: This is a pleasant 69 years old male who presents with non-STEMI. Continue with heparin drip. Continue with aspirin. Follow-up recommendation by manager retention. Echocardiogram Labs and medication were reviewed.. Continue same treatment. Continue with symptomatic treatment. Resume home medication. Monitor lytes and vitals. DVT and GI prophylaxis. Further recommendations of the clinical course of the patient DVT prophylaxis: heparin GI Prophylaxis: Pepcid PT/OT: Pending Prognosis is guarded
[2019-09-26] MEDS ORDERED: ATENOLOL 12.5 MG TAB PO SCH (09:00)
[2019-09-26] MEDS ORDERED: ASPIRIN 325 MG TAB PO SCH (09:00)
[2019-09-26] MEDS ORDERED: TORSEMIDE 20 MG TAB PO SCH (09:00)
[2019-09-26] MEDS ORDERED: VERAPAMIL 2.5 MG/ML 2 ML AMP ONE (10:38)
[2019-09-26] MEDS ORDERED: LIDOCAINE 1% INJ 10MG/ML (20 ML MDV) ONE (10:39)
[2019-09-26] MEDS ORDERED: MIDAZOLAM 2 MG/2 ML VIAL IV ONE (10:57)
[2019-09-26] MEDS: LIDOCAINE 1% INJ 10MG/ML (20 ML MDV) SQ ONE ×2 (10:58→11:19)
[2019-09-26] MEDS ORDERED: IV FLUID CONTINUATION 600 ML IV ONE (10:58)
[2019-09-26] MEDS: VERAPAMIL SYRINGE (5 MG/10 ML) INTRAARTER ONE ×2 (11:02→11:09)
[2019-09-26] MEDS ORDERED: HEPARIN SODIUM 1,000 UN/ML (10ML VL) IV ONE (11:03)
[2019-09-26] MEDS: NITROGLYCERIN 1000MCG/10ML SYRINGE INTRAARTER ONE ×3 (11:11→12:44)
--- NOTE | 2019-09-26 11:29 | CONS ---
CONSULTATION Mr. Anil Rodriguez is a 69-year-old gentleman who is a and gets his health care through the ID most of the time. He has a history of what seems to be a smoking and COPD, uses inhalers, but does not take any other medications. For about a month, he has been experiencing exertional chest pain which he ignored and did not seek medical attention. The pain in the chest became more constant, more persistent, occurring more frequently and therefore he came into the emergency room yesterday. He was having pain. He received Dilaudid, nitroglycerin and felt better with that. His troponin profile suggests a myocardial injury with initial troponin of 0.3 and subsequent up to 3.3. He is resting at the time of my evaluation, still has some mild chest tightness, but feels a lot better. He is on a heparin drip, nitroglycerin drip and has received beta blockers. This gentleman smokes nearly 1-2 packs a day and has recurrent bronchitis infections. PAST MEDICAL HISTORY: This is remarkable for hypertension, but he has not taken any regular medications, COPD, smoking, recurrent infections, upper respiratory tract. He is status post cholecystectomy and tonsillectomy, adenoidectomy. He also had some surgery for deviated nasal septum and hemorrhoidectomy. ALLERGIES: None. MEDICATIONS: Include Demodex 20 mg that he has not been taking. He takes the Combivent inhaler and also takes Aggrenox 200/25 tab daily, occasional multivitamins. He is supposed to take atorvastatin, but has not taken. It appears patient has hypertension. There is a question of TIA. There is also hyperlipidemia, but patient claims he does not have these problems. This is noted in the chart. The patient also has some anxiety and depression. The patient uses marijuana and smokes cigarettes on a regular basis. EKG revealed sinus mechanism, no acute changes. There is evidence of Q-waves in inferior leads. Possibility of prior inferior CT to be considered. On looking at a previous EKG about 2 years ago, similar findings were noted, but the Q-waves were not evident. Echocardiogram from September of 2017, revealed normal systolic function. PHYSICAL EXAMINATION: Blood pressure is 130/70, pulse rate is 68 per minute, regular. HEENT: Unremarkable. Fundus was not examined by me. NECK: Supple. There is JVD of 1 cm. No carotid bruit. HEART: Exam reveals S1, S2 heard normally. No significant murmurs. LUNGS: Reveal scattered rhonchi. ABDOMEN: Soft, nontender. Lower extremities reveal diminished pulses. No edema. Central nervous system is normal. LABORATORY DATA: Reveals normal renal function. The elevated troponins suggestive of non-ST elevation CT. IMPRESSION: 1. Chest pain syndrome suggestive of non ST elevation myocardial infarction. 2. Smoking and chronic obstructive pulmonary disease with exacerbation. 3. Hypertension. 4. Hyperlipidemia. RECOMMENDATIONS: I am recommending that we place him on metoprolol tartrate 12.5 mg b.i.d., aspirin 81 mg daily, atorvastatin 40 mg daily, continue his bronchodilators and proceed with coronary angiography and intervention. I explained to the patient the rationale, risks, benefits, and options. He understands all details and wishes to proceed with the cardiac cath and possible PCI. This will be performed today. JARADL / IJN: [id number] /
[2019-09-26] MEDS ORDERED: BIVALIRUDIN 250 MG in SODIUM CHLORIDE 0.9% 50 ML IV ONE ×2 (11:37→12:22)
[2019-09-26] MEDS ORDERED: BIVALIRUDIN BOLUS 250 MG/50 ML IV ONE (11:37)
[2019-09-26] MEDS ORDERED: IOPAMIDOL-370 100ML BTL INJ ONE (12:05)
[2019-09-26] MEDS ORDERED: IOPAMIDOL-370 125ML BTL INJ ONE ×2 (12:05→12:44)
[2019-09-26] MEDS ORDERED: TICAGRELOR 90 MG TAB PO ONE (12:45)
[2019-09-26] MEDS ORDERED: TICAGRELOR 90 MG TAB ONE (12:45)
[2019-09-26] MEDS ORDERED: ATROPINE SULFATE 0.1 MG/ML 10ML SYRINGE IV PRN (12:59)
[2019-09-26] MEDS ORDERED: MAG HYDROX/AL HYDROX/SIMETH 30 ML CUP PO PRN (12:59)
[2019-09-26] MEDS ORDERED: RX INFO: IV CONTRAST WAS GIVEN 1 EACH MISC MISCELLANE PRN (12:59)
[2019-09-26] MEDS ORDERED: ZOLPIDEM 5 MG TAB PO PRN (12:59)
[2019-09-26] MEDS: ALPRAZolam 0.25 MG TAB PO PRN (13:41)
[2019-09-26] MEDS ORDERED: LIDOCAINE URO-JET JELLY 2% 5 ML KIT URETHRAL ONE (16:13)
[2019-09-26] MEDS: MULTIVITAMINS, THERA 1 EACH TAB PO SCH (17:08)
[2019-09-26] MEDS: LOSARTAN 50 MG TAB PO SCH (17:08)
--- NOTE | 2019-09-26 20:31 | CC ---
CARDIAC CATHETERIZATION REPORT PROCEDURES: 1. Left heart catheterization and coronary angiography. 2. Percutaneous transluminal coronary angioplasty and stenting of a complex mid right coronary artery and distal right coronary artery lesion of a vessel coming from a posterior ectopic location. PERFORMED BY: Dr. Gabrielle Whitman. Moderate conscious sedation time was 116 minutes. CLINICAL INFORMATION: Mr. Anil Rodriguez is a 69-year-old gentleman, a , who has his health care through the [place] system in [place] with Dr. Waters. He has history of smoking more than a pack a day. He also has hypertension but is not consistently taking medications and hyperlipidemia, for which he has also not been taking medicines, and there is a question of sleep apnea syndrome being worked up. He came into the hospital with chest pain suggestive of angina, had Q-waves in the inferior leads. No ST-segment changes. Troponin went up, suggestive of [id number] ND, and after due discussion regarding risks, benefits and options, he was advised coronary angiography and PCI if indicated. PROCEDURE NOTE: Under local anesthesia and strict aseptic precautions, a 6-Malaysian introducer was placed in the right radial artery. I went up with a right Sarah catheter, but there was a severe intense spasm. In spite of multiple doses of verapamil and nitroglycerin, the spasm persisted and therefore I switched over to the right femoral approach. A 6- Malaysian introducer was placed under strict aseptic precautions and local anesthesia. I used a standard right Sarah catheter and with some difficulty I was able to cannulate a posterior location of the RCA and selective injection was performed. Using a JL3.5 catheter, I performed selective coronary angiography of the left system. I noted that there was a significant lesion in the mid RCA and distal RCA and performed intervention in the same setting. Following the procedure, a TR band was applied to the right radial with saturation of more than 94%, and I also placed an Angio-Seal in the right femoral artery with good hemostasis. The patient was sent to the room in a stable condition. I also used a multipurpose catheter. With this I checked LV pressures but did not perform an LV-gram. CARDIAC CATHETERIZATION FINDINGS: The left ventricular end-diastolic pressure was about 16 mmHg without any gradient across aortic valve. CORONARY ANGIOGRAPHY FINDINGS: RIGHT CORONARY ARTERY: This vessel is very dominant, comes from a posterior location, has a 95% mid lesion and distal 95% lesion just before bifurcation and gives off a smaller PLV, larger PDA. There are multiple diffuse areas of disease throughout with moderate calcification, but there are two focal 95% stenoses in the mid and distal RCA. LEFT MAIN CORONARY ARTERY: Short patent vessel, free of significant disease, that trifurcates into LAD, ramus and circumflex. There is no significant disease in the left main. LEFT ANTERIOR DESCENDING CORONARY ARTERY: Good-caliber vessel extends along the anterior wall, gives off septal and diagonal branches, runs towards the apex, has minor irregularities. No significant disease. RAMUS INTERMEDIUS: Fair-caliber vessel with minor irregularities. No significant disease. LEFT POSTERIOR CIRCUMFLEX CORONARY ARTERY: Technically a nondominant vessel, gives off obtuse marginal and distally the posterolateral branch has about a 50% to 60% narrowing; appears to be significant in some views. Distal branches are free of significant disease, but the posterolateral branch of circumflex has a 60% stenosis that appears to be severely more significant in some views. Left ventriculogram was not performed. FINAL IMPRESSION: This patient has a right-dominant system, a 95% mid distal RCA stenosis before bifurcation. There is a 60% stenosis in the PLV branch of circumflex. Ramus intermedius and LAD are free of significant disease. Filling pressures are mildly elevated with no gradient across aortic valve. RECOMMENDATIONS: I recommended PCI of RCA that was performed in the same setting. PERCUTANEOUS CORONARY INTERVENTION PROCEDURE DETAILS: Initially I tried a KRH catheter, then used a Sarah catheter and a multipurpose catheter. With neither of these catheters was I able to cannulate the right coronary artery. I used an AL1 catheter. With a very acute bend on AL1, I was able to get selective cannulation of the RCA. I used a long run-through wire. With this I crossed the two lesions and kept the wire in the PLV branch. I used a short Whisper wire and with this I was able to cross both the lesions and kept the wire in the PDA branch. I used a 3.0 caliber 12 mm NC Trek balloon and with this I dilated the mid lesion at 12 atmospheres. I then used a 2.5 caliber NC Trek balloon and with this I dilated the PLV branch over the run-through wire. A good angiographic result was achieved. I then used a 2.5, 12 mm long Xience stent and deployed this in the distal RCA into the PDA branch, and with this I was able to get an excellent angiographic result. I then took the wire out of the PLV branch, which was a long run-through wire, and rewired the PLV branch through the struts of Xience stent. I then deployed a 3.5 caliber 12 mm Xience stent in the mid RCA lesion at 12 atmospheres. Beyond the stent there was an area of haziness and I addressed this with an 8 mm 3.0 caliber stent. Prior to the deployment of the stent, I took out the run-through wire and then rewired through the stent in the mid RCA and also through the stent in the PLV branch into the PLV through the struts of the distal RCA stent. However, final angiograms revealed that there was an excellent flow in the PLV, even though the vessel was jailed. There was no residual stenosis. Flow was excellent. I therefore decided not to do any further intervention with the PLV branch. I deployed a 2.5, 12 stent in the distal RCA and two stents in the mid RCA. The proximal was 3.5 caliber 12 mm and distal was 3.0 caliber 8 mm. Excellent angiographic result was achieved. The sheath was taken out and Angio-Seal device used to secure hemostasis and patient was sent to the room in stable condition. He received Brilinta 180 mg orally and Angiomax bolus and infusion as per protocol. Results were discussed with the patient. There was no family available. MMODL / IJN: [id number] /
[2019-09-26] MEDS: IPRATROPIUM-ALBUTEROL 3 ML NEB INHALATION SCH (20:43)
[2019-09-27] MEDS: ALPRAZolam 0.25 MG TAB PO PRN (00:17)
[2019-09-27 06:32] LABS: Basophils # (A) 0.1 k/uL (0-0.2); Basophils % (A) 1 %; Eosinophils % (A) 0 %; HCT 44.4 % (39.0-53.0); HGB 14.4 gm/dL (13.0-17.5); Lymphocytes % (A) 8 %; MCH 30.4 pg (25.0-35.0); MCHC 32.4 g/dL (31.0-37.0); MCV 93.9 fL (80.0-100.0); Monocytes # (A) 0.8 k/uL (0-1.0); Monocytes % (A) 7 %; Neutrophils # (A) 10.3 k/uL (1.3-7.7); Neutrophils % (A) 83 %; Platelet Count 245 k/uL (150-450); RBC 4.73 m/uL (4.30-5.90); RDW 14.2 % (11.5-15.5); WBC 12.4 k/uL (3.8-10.6)
[2019-09-27] MEDS: PANTOPRAZOLE 40 MG TABLET PO SCH (06:41)
[2019-09-27 06:50] LABS: African American GFR (CKD) >90 (>60 ml/min/1.73 sqM); Anion Gap 7 mmol/L; Blood Urea Nitrogen 21 mg/dL (9-20); Calcium 8.5 mg/dL (8.4-10.2); Carbon Dioxide 28 mmol/L (22-30); Chloride 104 mmol/L (98-107); Glucose 96 mg/dL (74-99); Non-African American GFR(CKD) 90 (>60 ml/min/1.73 sqM); Potassium 4.1 mmol/L (3.5-5.1); Sodium 139 mmol/L (137-145)
[2019-09-27] MEDS: SYMBICORT 80-4.5 MCG INHALER INHALATION SCH ×2 (07:48→19:13)
[2019-09-27] MEDS: IPRATROPIUM-ALBUTEROL 3 ML NEB INHALATION SCH ×4 (07:48→19:13)
[2019-09-27] MEDS: SODIUM CHLORIDE 0.9% 1,000 ML IV SCH ×4 (08:25→18:16)
--- NOTE | 2019-09-27 08:40 | P.PN ---
Objective - Vital Signs Vital signs: Vital Signs Temp 98.1 F 09/27/19 03:46 Pulse 70 09/27/19 07:50 Resp 17 09/27/19 03:46 BP 176/77 09/27/19 03:46 Pulse Ox 95 09/27/19 07:50 Intake & Output 09/26/19 09/27/19 09/27/19 18:59 06:59 18:59 Intake Total 380 Output Total 1250 1500 Balance -870 -1500 Weight 93.8 kg Intake: IV 380 Output: Urine 1250 1500 Uretheral (Urbina) 1300 Other: Voiding Method Incontinent Indwelling Catheter # Bowel Movements 0 - Exam This is a pleasant 69 years old male with past medical history of hypertension, CVA/TIA, COPD, osteoarthritis, sleep apnea on CPAP, chronic back pain, hiatal hernia, peripheral vascular disease, who presents because of chest pain. Patient states that he has mild central and left chest pain suspicious for non- digested for about a month, however over the last 5 days chest pain was getting stronger, more continuous, and radiating to the arms and patient got concerned so decided to come to the hospital. He has mild chest pain this morning with little dyspnea. Patient is currently on heparin and nitro drip No coughing. Patient is supposed to get his CPAP machine around these days. He smokes about 1 pack per day but no alcohol or illicit drugs Lives alone at home. Patient also feels generally weak Vitals are stable. Afebrile. Labs showing unremarkable CBC, INR, BMP, liver enzymes. Patient troponin were trending up 0.38, 1.14, 3.3. EKG: Normal sinus rhythm at [address]-T changes. He has mild ST elevation in inferior leads. Chest x-ray: No acute process. Old basal atelectasis and probable pulmonary fibrosis On admission patient was started on heparin drip and normal saline at 75 mm per hour and nitroglycerin with pain management. Also he is on aspirin 325 mg 09/27/2019 Patient underwent cardiac cath yesterday with stent placed in his right coronary artery. This morning patient denies chest pain or dyspnea. However is complaining of from back pain from lying down. Patient also was complaining of from penile pain during the night and bladder scan showed urinary retention. Patient had Urbina catheter inserted. Patient was not very cooperative this morning for example he refused to provide the name for his primary care doctor. However we instructed the patient to follow-up with his PCP in one week after discharge and he agrees. Patient does not want staff to make appointments for him and he wants to make his appointment with his PCP. Vitals are stable. He has mild leukocytosis, mostly reactive. We'll add lidocaine patch, ask for physical therapy evaluation and urological consult, and Flomax. Discussed with staff Review of systems CONSTITUTIONAL: No fever, no malaise, no fatigue. HEENT: No recent visual problems or hearing problems. Denied any sore throat. CARDIOVASCULAR: No orthopnea, PND, no palpitations, no syncope. PULMONARY: No shortness of breath, no cough, no hemoptysis. GASTROINTESTINAL: No diarrhea, no nausea, no vomiting, no abdominal pain. Normoactive bowel sounds. NEUROLOGICAL: No headaches, no weakness, no numbness. HEMATOLOGICAL: Denies any bleeding or petechiae. GENITOURINARY: Denies any burning micturition, frequency, or urgency. MUSCULOSKELETAL/RHEUMATOLOGICAL: Denies any joint pain, swelling, or any muscle pain. ENDOCRINE: Denies any polyuria or polydipsia. Active Medications Generic Name Dose Route Start Last Admin Trade Name Freq PRN Reason Stop Dose Admin Hydrocodone Bitart/Acetaminophen 1 each 09/25/19 18:19 09/26/19 21:17 Marina 5-325 PO 1 each Q6HR PRN Administration Pain Al Hydroxide/Mg Hydroxide 30 ml 09/26/19 12:59 Maalox PO Q4HR PRN Heartburn Albuterol/Ipratropium 3 ml 09/26/19 21:00 09/27/19 07:48 Duoneb 0.5 Mg-3 Mg/3 Ml Soln INHALATION 3 ml RT-QID DEIDRE Administration Alprazolam 0.25 mg 09/26/19 09:00 09/26/19 03:46 Xanax PO 0.25 mg DAILY DEIDRE Administration Alprazolam 0.25 mg 09/26/19 08:02 09/27/19 00:17 Xanax PO 0.25 mg Q6HR PRN Administration Mild Anxiety Alprazolam 0.5 mg 09/26/19 08:02 Xanax PO Q6HR PRN Moderate Anxiety Aspirin 81 mg 09/27/19 09:00 Aspirin PO DAILY DEIDRE Atorvastatin Calcium 80 mg 09/27/19 21:00 Lipitor PO HS DEIDRE Atropine Sulfate 0.5 mg 09/26/19 12:59 Atropine IV ONCE PRN Symptomatic Bradycardia Budesonide/Formoterol Fumarate 2 puff 09/25/19 20:00 09/27/19 07:48 Symbicort 80-4.5 Mcg Inhaler INHALATION 2 puff RT-BID DEIDRE Administration Docusate Sodium 100 mg 09/25/19 18:19 Colace PO BID PRN Constipation Fluticasone Propionate 2 spray 09/25/19 18:19 Flonase Nasal [place] EA NOSTRIL DAILY PRN Allergy Symptoms Heparin Sodium (Porcine) 0 unit 09/25/19 17:16 Heparin IV PER PROTOCOL PRN Low PTT Protocol Sodium Chloride 1,000 mls @ 20 mls/hr 09/25/19 18:15 09/27/19 08:26 Saline 0.9% IV Not Given .Q24H DEIDRE Sodium Chloride 1,000 mls @ 75 mls/hr 09/26/19 13:00 09/27/19 08:26 Saline 0.9% IV 09/27/19 13:01 Not Given .[id number] [facility] Losartan Potassium 50 mg 09/26/19 13:15 09/26/19 17:08 Cozaar PO 50 mg DAILY DEIDRE Administration Metoprolol Tartrate 12.5 mg 09/26/19 09:00 09/26/19 21:17 Lopressor PO 12.5 mg BID DEIDRE Administration Miscellaneous Information 1 each 09/26/19 12:59 Rx Info: Iv Contrast Was Given MISCELLANE 09/28/19 12:59 DAILY PRN Per Protocol Multivitamins 1 each 09/26/19 09:00 09/26/19 17:08 Theragran PO Not Given DAILY [facility] Nicotine 1 patch 09/25/19 22:15 09/26/19 08:41 Habitrol 21mg/24hr Patch TRANSDERM 1 patch DAILY [facility] Administration Nitroglycerin 0.4 mg 09/26/19 08:02 Nitrostat SUBLINGUAL Q5M PRN Chest Pain Pantoprazole Sodium 40 mg 09/26/19 07:30 09/27/19 06:41 Protonix PO 40 mg AC-BRKFST DEIDRE Administration Ticagrelor 90 mg 09/27/19 09:00 Brilinta PO BID DEIDRE Zolpidem Tartrate 5 mg 09/26/19 12:59 Ambien PO HS PRN Insomnia - Labs CBC & Chem 7: 09/27/19 05:50 09/27/19 05:50 Labs: Abnormal Lab Results - Last 24 Hours (Table) 09/26/19 09/27/19 09/27/19 Range/Units 15:31 05:50 05:50 WBC 12.4 H (3.8-10.6) k/uL Neutrophils # 10.3 H (1.3-7.7) k/uL BUN 21 H (9-20) mg/dL Troponin I 11.700 H* (0.000-0.034) ng/mL Assessment and Plan Assessment: Acute non-STEMI, status post cardiac cath and stent placement of the RCA Urinary retention, status post Urbina catheter insertion Hypertension Nicotine dependence and patient agrees to quit the nicotine patch. He is counseled Pulmonary atelectasis and possible fibrosis Osteoarthritis Sleep apnea on CPAP Chronic back pain Hiatal hernia Peripheral vascular disease Plan: This is a pleasant 69 years old male who presents with non-STEMI. Continue with aspirin and brilinta. Follow-up recommendation by legislative aide. We'll add lidocaine patch, ask for physical therapy evaluation and urological consult, and Flomax. Labs and medication were reviewed.. Continue same treatment. Continue with symptomatic treatment. Resume home medication. Monitor lytes and vitals. DVT and GI prophylaxis. Further recommendations of the clinical course of the patient DVT prophylaxis: heparin GI Prophylaxis: Pepcid PT/OT: Pending Prognosis is guarded
[2019-09-27] MEDS: HYDROcodone/APAP 5-325MG 1 EACH TAB PO PRN (08:53)
[2019-09-27] MEDS: NICOTINE 21MG/24HR PATCH TRANSDERM SCH (08:54)
[2019-09-27] MEDS: ALPRAZolam 0.25 MG TAB PO SCH (08:54)
[2019-09-27] MEDS: MULTIVITAMINS, THERA 1 EACH TAB PO SCH (08:54)
[2019-09-27] MEDS: TICAGRELOR 90 MG TAB PO SCH ×2 (08:54→20:24)
[2019-09-27] MEDS: LOSARTAN 50 MG TAB PO SCH (08:54)
[2019-09-27] MEDS: METOPROLOL TARTRATE 12.5 MG TAB PO SCH ×2 (08:54→20:24)
[2019-09-27] MEDS: ASPIRIN 81 MG PO SCH (08:54)
[2019-09-27] MEDS: TAMSULOSIN 0.4 MG CAP.ER.24H PO SCH (08:58)
[2019-09-27] MEDS ORDERED: ASPIRIN 325 MG TAB PO SCH (09:00)
--- NOTE | 2019-09-27 12:01 | ECHOF ---
Referral Reason:Inf NSTEMI S/P RCA PCI MEASUREMENTS -------- HEIGHT: 162.6 cm WEIGHT: 96.2 kg BP: 139/89 IVSd: 1.4 cm (0.6 - 1.1) LVIDd: 3.5 cm (3.9 - 5.3) LVPWd: 1.4 cm (0.6 - 1.1) IVSs: 2.0 cm LVIDs: 1.8 cm LVPWs: 2.2 cm LAESV Index (A-L): 19.04 ml/m Ao Diam: 2.7 cm (2.0 - 3.7) AV Cusp: 1.9 cm (1.5 - 2.6) LA Diam: 3.7 cm (2.7 - 3.8) MV EXCURSION: 17.586 mm (> 18.000) MV EF SLOPE: 95 mm/s (70 - 150) EPSS: 0.7 cm MV E [place]: 0.94 m/s MV DecT: 229 ms MV A [place]: 0.79 m/s MV E/A Ratio: 1.19 RAP: 5.00 mmHg RVSP: 21.09 mmHg FINDINGS -------- Sinus rhythm. This was a technically difficult study with suboptimal apical views. Patient is post cardiac cathet erization and cannot be in left lateral position. The left ventricular size is normal. There is moderate concentric left ventricular hypertrophy. O verall left ventricular systolic function is normal with, an EF between 55 - 60 %. The diastolic fi lling pattern is normal for the age of the patient 15.84. The right ventricle is severely enlarged. Normal LA size by volume 22+/-6 ml/m2. The right atrium was not well visualized. Interatrial and interventricular septum intact. Mobile interatrial septum. There is no evidence of aortic regurgitation. There is no evidence of aortic stenosis. There is trace mitral regurgitation. Mild tricuspid regurgitation present. There is no evidence of pulmonary hypertension. The right v entricular systolic pressure, as measured by Doppler, is 21.09mmHg. There is no pulmonic regurgitation present. The aortic root size is normal. IVC Not well visulized. There is no pericardial effusion. 5.0mg of Lumason was utilized for enhancement of images CONCLUSIONS -------- 1. Sinus rhythm. 2. This was a technically difficult study with suboptimal apical views. 3. Patient is post cardiac catheterization and cannot be in left lateral position. 4. The left ventricular size is normal. 5. There is moderate concentric left ventricular hypertrophy. 6. Overall left ventricular systolic function is normal with, an EF between 55 - 60 %. 7. The diastolic filling pattern is normal for the age of the patient 15.84 8. Normal LA size by volume 22+/-6 ml/m2. 9. The right atrium was not well visualized. 10. 5.0mg of Lumason was utilized for enhancement of images 11. Mobile interatrial septum. 12. There is no evidence of aortic regurgitation. 13. There is no evidence of aortic stenosis. 14. There is trace mitral regurgitation. 15. Mild tricuspid regurgitation present. 16. There is no evidence of pulmonary hypertension. 17. The right ventricular systolic pressure, as measured by Doppler, is 21.09mmHg. 18. There is no pulmonic regurgitation present. 19. The aortic root size is normal. 20. IVC Not well visulized. 21. There is no pericardial effusion. COMBINER: Missy Leon RDCS
--- NOTE | 2019-09-27 12:15 | PN ---
PROGRESS NOTE Mr. Rodriguez underwent stenting of a very difficult RCA in the mid and distal portion with excellent result. He is doing well. His EKG is unremarkable. Labs are acceptable. He has had issues urinating, has a Urbina catheter and Urology is going to see him. Vitals are stable, there is JVD of 1 cm, no carotid bruit. S1-S2 heard normally, short systolic murmur noted. Lungs revealed decent air entry with scattered rhonchi. Abdomen and lower extremity exam unchanged. Right groin cath site is clean and dry with a good pulse and right radial site is clean and dry with a good pulse. Plan is to continue current medications, increase activity, seek Urology input and hopefully discharge tomorrow. MMODL / IJN: [id number] /
[2019-09-27 12:21] LABS: Glucose,Whole Blood 126 mg/dL (75-99)
[2019-09-27 13:55] VITALS: BMI 35.4
[2019-09-27] MEDS: LIDOCAINE 5% PATCH TOPICAL SCH (18:13)
--- NOTE | 2019-09-27 18:24 | XR ---
EXAMINATION TYPE: XR chest 2V DATE OF EXAM: 09/27/2019 COMPARISON: 09/25/2019 HISTORY: Short of breath TECHNIQUE: 2 views FINDINGS: There is very poor inspiration with elevation of the diaphragms. There is linear density at the lung bases. There is no heart failure. Heart size is normal. IMPRESSION: Bilateral basilar atelectasis is worse than last exam. No heart failure seen.
--- NOTE | 2019-09-27 19:55 | P.GSCN ---
History of Present Illness Consult date: 09/27/19 Reason for Consult: Urinary retention Requesting physician: Jamal E Sheet History of present illness: The patient is a 69-year-old white male with an unremarkable urologic history. He underwent PTCA with stent placement yesterday and experienced voiding difficulty associated with significant pain following the procedure. A Urbina catheter was placed, with return of 900 mL of urine. The catheter remains in place. As a baseline, the patient describes his urinary stream is being light to moderate. He denies dysuria and hematuria. He voids every 2 hours throughout the day, and reports nocturia 3. Review of Systems - Constitutional Denies chills, Denies fever - Genitourinary Reports as per HPI Past Medical History Past Medical History: COPD, CVA/TIA, Hypertension, Osteoarthritis (OA), Sleep Apnea/CPAP/BIPAP Additional Past Medical History / Comment(s): chronic back pain, PTSD combat related, Hiatal Hernia, pvd, tia, tested 2013 for hiv(neg) per pt.stated carries antibodies for hepatitis a and b. History of Any Multi-Drug Resistant Organisms: None Reported Past Surgical History: Adenoidectomy, Cholecystectomy, Tonsillectomy Additional Past Surgical History / Comment(s): deviated septum sx,rectal fissure surgery, hemorrhoidectomy,2010 lt leg sx-has loly in place. Past Anesthesia/Blood Transfusion Reactions: Motion Sickness Additional Past Anesthesia/Blood Transfusion Reaction / Comm: vertigo Past Psychological History: Anxiety, Depression, PTSD Additional Psychological History / Comment(s): Non-combat related PTSD . pt lives alone uses a cane when up. 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 used to smoke 1 packper day now smokes 1 pack per month Past Drug Use History: Marijuana Additional Drug Use History / Comment(s): none since 1978 - Past Family History Father Additional Family Medical History / Comment(s): father in airplane crash when in [place]. pt only knows that alcoholism ran in his family Brother Family Medical History: Cancer Additional Family Medical History / Comment(s): Pancreatic Cancer Mother Family Medical History: Diabetes Mellitus Medications and Allergies Home Medications Medication Instructions Recorded Confirmed Type Fluticasone/Salmeterol [Advair 1 puff INHALATION RT-BID 06/08/15 09/25/19 History 250-50 Diskus] Fluticasone Nasal [place] [Flonase 2 spr EA NOSTRIL DAILY PRN 09/27/17 09/25/19 History Nasal [place]] Ipratropium/Albuterol Sulfate 1 puff INHALATION RT-QID PRN 09/27/17 09/25/19 History [Combivent Respimat Inhaler] guaiFENesin SYRUP 100MG/5ML 200 mg PO Q6H PRN 09/27/17 09/25/19 History [Robitussin] Naproxen Sodium [Aleve] 220 mg PO BID PRN 09/25/19 09/25/19 History Tamsulosin [Flomax] 0.4 mg PO DAILY #30 cap 09/27/19 Rx Allergies Allergy/AdvReac Type Severity Reaction Status Date / Time No Known Allergies Allergy Verified 09/25/19 18:41 Surgical - Exam Vital Signs Pulse Resp BP Pulse Ox 74 16 152/90 98 09/25/19 15:49 09/25/19 15:49 09/25/19 15:49 09/25/19 15:49 - General well developed, well nourished, no distress - Respiratory normal respiratory effort - Abdomen Abdomen: soft, non tender, no guarding, no rigid, no rebound Hernia: no inguinal - Genitourinary normal penis with no external lesions, testicles non-tender - Rectum Rectum: normal sphincter tone, no masses, other (The prostate was mildly enlarged and smooth) - Psychiatric oriented to time, oriented to person, oriented to place, speech is normal, memory intact Results - Labs 09/27/19 05:50 09/27/19 05:50 Abnormal Lab Results - Last 24 Hours (Table) 09/27/19 09/27/19 09/27/19 Range/Units 05:50 05:50 12:00 WBC 12.4 H (3.8-10.6) k/uL Neutrophils # 10.3 H (1.3-7.7) k/uL BUN 21 H (9-20) mg/dL POC Glucose (mg/dL) 126 H (75-99) mg/dL Diabetes panel 09/27/19 Range/Units 05:50 Sodium 139 (137-145) mmol/L Potassium 4.1 (3.5-5.1) mmol/L Chloride 104 (98-107) mmol/L Carbon Dioxide 28 (22-30) mmol/L BUN 21 H (9-20) mg/dL Creatinine 0.82 (0.66-1.25) mg/dL Glucose 96 (74-99) mg/dL Calcium 8.5 (8.4-10.2) mg/dL Calcium panel 09/27/19 Range/Units 05:50 Calcium 8.5 (8.4-10.2) mg/dL Pituitary panel 09/27/19 Range/Units 05:50 Sodium 139 (137-145) mmol/L Potassium 4.1 (3.5-5.1) mmol/L Chloride 104 (98-107) mmol/L Carbon Dioxide 28 (22-30) mmol/L BUN 21 H (9-20) mg/dL Creatinine 0.82 (0.66-1.25) mg/dL Glucose 96 (74-99) mg/dL Calcium 8.5 (8.4-10.2) mg/dL Adrenal panel 09/27/19 Range/Units 05:50 Sodium 139 (137-145) mmol/L Potassium 4.1 (3.5-5.1) mmol/L Chloride 104 (98-107) mmol/L Carbon Dioxide 28 (22-30) mmol/L BUN 21 H (9-20) mg/dL Creatinine 0.82 (0.66-1.25) mg/dL Glucose 96 (74-99) mg/dL Calcium 8.5 (8.4-10.2) mg/dL Assessment and Plan (1) Retention of urine, unspecified Current Visit: Yes Status: Acute Code(s): R33.9 - RETENTION OF URINE, UNSPECIFIED SNOMED Code(s): 611498919 Plan: The Urbina catheter will need to remain in place for several days for the bladder to regain its tone. In view of this, the patient will be discharged home with the catheter. I have prescribed tamsulosin. He was instructed to remove his catheter in the morning on September 30, and follow-up with me in the office later that day to assess bladder emptying. Please notify me if I can be of any further assistance. Time with Patient: Greater than 30
[2019-09-27] MEDS: ATORVASTATIN 80 MG TAB PO SCH (20:24)
[2019-09-27] MEDS ORDERED: ATORVASTATIN 40 MG TAB PO SCH (21:00)
[2019-09-28] MEDS: PANTOPRAZOLE 40 MG TABLET PO SCH (05:53)
[2019-09-28 06:21] LABS: Basophils # (A) 0.1 k/uL (0-0.2); Basophils % (A) 1 %; Eosinophils # (A) 0.1 k/uL (0-0.7); Eosinophils % (A) 1 %; HCT 42.8 % (39.0-53.0); HGB 13.9 gm/dL (13.0-17.5); Lymphocytes # (A) 1.8 k/uL (1.0-4.8); Lymphocytes % (A) 19 %; MCH 30.8 pg (25.0-35.0); MCHC 32.4 g/dL (31.0-37.0); Mean Platelet Volume 7.6; Monocytes # (A) 0.8 k/uL (0-1.0); Monocytes % (A) 9 %; Neutrophils # (A) 6.8 k/uL (1.3-7.7); Neutrophils % (A) 70 %; Platelet Count 226 k/uL (150-450); RDW 14.3 % (11.5-15.5); WBC 9.7 k/uL (3.8-10.6)
[2019-09-28] MEDS: SYMBICORT 80-4.5 MCG INHALER INHALATION SCH ×2 (08:23→19:41)
[2019-09-28] MEDS: IPRATROPIUM-ALBUTEROL 3 ML NEB INHALATION SCH ×4 (08:23→19:41)
[2019-09-28] MEDS: LIDOCAINE 5% PATCH TOPICAL SCH (09:12)
[2019-09-28] MEDS: HYDROcodone/APAP 5-325MG 1 EACH TAB PO PRN (09:14)
[2019-09-28] MEDS: MULTIVITAMINS, THERA 1 EACH TAB PO SCH (09:20)
[2019-09-28] MEDS: METOPROLOL TARTRATE 12.5 MG TAB PO SCH ×2 (09:20→21:08)
[2019-09-28] MEDS: ASPIRIN 81 MG PO SCH (09:20)
[2019-09-28] MEDS: TAMSULOSIN 0.4 MG CAP.ER.24H PO SCH (09:20)
[2019-09-28] MEDS: LOSARTAN 50 MG TAB PO SCH (09:21)
[2019-09-28] MEDS: TICAGRELOR 90 MG TAB PO SCH ×2 (09:21→21:08)
[2019-09-28] MEDS: ALPRAZolam 0.25 MG TAB PO SCH (09:22)
[2019-09-28] MEDS: NICOTINE 21MG/24HR PATCH TRANSDERM SCH (09:22)
[2019-09-28] MEDS: SODIUM CHLORIDE 0.9% 1,000 ML IV SCH (09:24)
--- NOTE | 2019-09-28 09:47 | P.PN ---
Subjective This is a pleasant 69 years old male with past medical history of hypertension, CVA/TIA, COPD, osteoarthritis, sleep apnea on CPAP, chronic back pain, hiatal hernia, peripheral vascular disease, who presents because of chest pain. Patient states that he has mild central and left chest pain suspicious for non- digested for about a month, however over the last 5 days chest pain was getting stronger, more continuous, and radiating to the arms and patient got concerned so decided to come to the hospital. He has mild chest pain this morning with little dyspnea. Patient is currently on heparin and nitro drip No coughing. Patient is supposed to get his CPAP machine around these days. He smokes about 1 pack per day but no alcohol or illicit drugs Lives alone at home. Patient also feels generally weak Vitals are stable. Afebrile. Labs showing unremarkable CBC, INR, BMP, liver enzymes. Patient troponin were trending up 0.38, 1.14, 3.3. EKG: Normal sinus rhythm at [address]-T changes. He has mild ST elevation in inferior leads. Chest x-ray: No acute process. Old basal atelectasis and probable pulmonary fibrosis On admission patient was started on heparin drip and normal saline at 75 mm per hour and nitroglycerin with pain management. Also he is on aspirin 325 mg 09/27/2019 Patient underwent cardiac cath yesterday with stent placed in his right coronary artery. This morning patient denies chest pain or dyspnea. However is complaining of from back pain from lying down. Patient also was complaining of from penile pain during the night and bladder scan showed urinary retention. Patient had Urbina catheter inserted. Patient was not very cooperative this morning for example he refused to provide the name for his primary care doctor. However we instructed the patient to follow-up with his PCP in one week after discharge and he agrees. Patient does not want staff to make appointments for him and he wants to make his appointment with his PCP. Vitals are stable. He has mild leukocytosis, mostly reactive. We'll add lidocaine patch, ask for physical therapy evaluation and urological consult, and Flomax. Discussed with staff 09/28/2019 Patient status post cardiac cath. He denies chest pain or dyspnea. However patient complains from chronic back pain and bilateral hip pain that is going on since age 59, mostly related to his osteoarthritis. Also patient had Urbina catheter placed due to urinary retention and penile pain. Patient has been evaluated by urologist and recommended to keep the Urbina catheter and follow-up as an outpatient, however the patient prefers to stay in the hospital to take care of the catheter because he states that he is 69 years old, alone and he is not good with follow-up. Patient had long discussion with the medical staff regarding this. Also he does not follow up with his PCP Dr. Waters or the [place] clinic before that, he says that its longest oriented complicated so it does not explain the exact reason, I suggested for him other PCP and he agreed. Contact information will be provided for him upon his request. Patient also was complaining of from generalized abdominal pain and discomfort on palpation. He denies change in bowel habits. No nausea vomiting. Computed tomography scan of the abdomen and pelvis with IV contrast is suggestive but he declined the intravenous contrast. Study will be done with oral contrast only. Review of systems CONSTITUTIONAL: No fever, no malaise, no fatigue. HEENT: No recent visual problems or hearing problems. Denied any sore throat. CARDIOVASCULAR: No orthopnea, PND, no palpitations, no syncope. PULMONARY: No shortness of breath, no cough, no hemoptysis. GASTROINTESTINAL: No diarrhea, no nausea, no vomiting, Normoactive bowel sounds. NEUROLOGICAL: No headaches, no weakness, no numbness. HEMATOLOGICAL: Denies any bleeding or petechiae. GENITOURINARY: Denies any burning micturition, frequency, or urgency. MUSCULOSKELETAL/RHEUMATOLOGICAL: Denies any joint pain, swelling, or any muscle pain. ENDOCRINE: Denies any polyuria or polydipsia. Active Medications Generic Name Dose Route Start Last Admin Trade Name Rubinq PRN Reason Stop Dose Admin Hydrocodone Bitart/Acetaminophen 1 each 09/25/19 18:19 09/28/19 09:14 Enola 5-325 PO 1 each Q6HR PRN Administration Pain Al Hydroxide/Mg Hydroxide 30 ml 09/26/19 12:59 Maalox PO Q4HR PRN Heartburn Albuterol/Ipratropium 3 ml 09/26/19 21:00 09/28/19 08:23 Duoneb 0.5 Mg-3 Mg/3 Ml Soln INHALATION 3 ml RT-QID DEIDRE Administration Alprazolam 0.25 mg 09/26/19 09:00 09/28/19 09:22 Xanax PO 0.25 mg DAILY DEIDRE Administration Alprazolam 0.25 mg 09/26/19 08:02 09/27/19 00:17 Xanax PO 0.25 mg Q6HR PRN Administration Mild Anxiety Alprazolam 0.5 mg 09/26/19 08:02 Xanax PO Q6HR PRN Moderate Anxiety Amlodipine Besylate 5 mg 09/28/19 20:00 Norvasc PO DAILY@2000 DEIDRE Aspirin 81 mg 09/27/19 09:00 09/28/19 09:20 Aspirin PO 81 mg DAILY DEIDRE Administration Atorvastatin Calcium 80 mg 09/27/19 21:00 09/27/19 20:24 Lipitor PO 80 mg HS DEIDRE Administration Atropine Sulfate 0.5 mg 09/26/19 12:59 Atropine IV ONCE PRN Symptomatic Bradycardia Budesonide/Formoterol Fumarate 2 puff 09/25/19 20:00 09/28/19 08:23 Symbicort 80-4.5 Mcg Inhaler INHALATION 2 puff RT-BID [facility] Administration Docusate Sodium 100 mg 09/25/19 18:19 Colace PO BID PRN Constipation Fluticasone Propionate 2 spray 09/25/19 18:19 09/27/19 18:13 Flonase Nasal [place] EA NOSTRIL 2 spray DAILY PRN Administration Allergy Symptoms Heparin Sodium (Porcine) 0 unit 09/25/19 17:16 Heparin IV PER PROTOCOL PRN Low PTT Protocol Sodium Chloride 1,000 mls @ 20 mls/hr 09/25/19 18:15 09/28/19 09:24 Saline 0.9% IV Not Given .Q24H [facility] Iopamidol 30 ml 09/28/19 09:41 Isovue-300 (For Oral Use) PO 09/29/19 09:[address] Scan Lidocaine 1 patch 09/27/19 09:00 09/28/19 09:12 Lidoderm TOPICAL 1 patch DAILY [facility] Administration Losartan Potassium 100 mg 09/28/19 09:00 09/28/19 09:21 Cozaar PO 100 mg DAILY DEIDRE Administration Metoprolol Tartrate 12.5 mg 09/26/19 09:00 09/28/19 09:20 Lopressor PO 12.5 mg BID DEIDRE Administration Miscellaneous Information 1 each 09/26/19 12:59 Rx Info: Iv Contrast Was Given MISCELLANE 09/28/19 12:59 DAILY PRN Per Protocol Multivitamins 1 each 09/26/19 09:00 09/28/19 09:20 Theragran PO 1 each DAILY DEIDRE Administration Nicotine 1 patch 09/25/19 22:15 09/28/19 09:22 Habitrol 21mg/24hr Patch TRANSDERM 1 patch DAILY DEIDRE Administration Nitroglycerin 0.4 mg 09/26/19 08:02 Nitrostat SUBLINGUAL Q5M PRN Chest Pain Pantoprazole Sodium 40 mg 09/26/19 07:30 09/28/19 05:53 Protonix PO 40 mg AC-BRKFST DEIDRE Administration Tamsulosin HCl 0.4 mg 09/27/19 08:45 09/28/19 09:20 Flomax PO 0.4 mg PC-BRKFST DEIDRE Administration Ticagrelor 90 mg 09/27/19 09:00 09/28/19 09:21 Brilinta PO 90 mg BID DEIDRE Administration Zolpidem Tartrate 5 mg 09/26/19 12:59 Ambien PO HS PRN Insomnia Objective - Vital Signs Vital signs: Vital Signs Temp 97.6 F 09/28/19 09:30 Pulse 85 09/28/19 09:30 Resp 20 09/28/19 09:30 BP 128/68 09/28/19 09:30 Pulse Ox 94 L 09/28/19 09:30 Intake & Output 09/27/19 09/28/19 09/28/19 18:59 06:59 18:59 Intake Total 875 10 Output Total 300 350 Balance 575 -340 Weight 93.8 kg 94.8 kg Intake: Intake, IV Titration 95 10 Amount Sodium Chloride 0.9% 1, 20 000 ml @ 20 mls/hr IV . Q24H [facility] Rx#:[id number] Sodium Chloride 0.9% 1, 75 10 000 ml @ 75 mls/hr IV . [id number] [facility] Rx#:[id number] Oral 780 Output: Urine 300 350 Other: Voiding Method Indwelling Catheter Indwelling Catheter Indwelling Catheter - Exam This is a pleasant 69 years old male with past medical history of hypertension, CVA/TIA, COPD, osteoarthritis, sleep apnea on CPAP, chronic back pain, hiatal hernia, peripheral vascular disease, who presents because of chest pain. Patient states that he has mild central and left chest pain suspicious for non- digested for about a month, however over the last 5 days chest pain was getting stronger, more continuous, and radiating to the arms and patient got concerned so decided to come to the hospital. He has mild chest pain this morning with little dyspnea. Patient is currently on heparin and nitro drip No coughing. Patient is supposed to get his CPAP machine around these days. He smokes about 1 pack per day but no alcohol or illicit drugs Lives alone at home. Patient also feels generally weak Vitals are stable. Afebrile. Labs showing unremarkable CBC, INR, BMP, liver enzymes. Patient troponin were trending up 0.38, 1.14, 3.3. EKG: Normal sinus rhythm at [address]-T changes. He has mild ST elevation in inferior leads. Chest x-ray: No acute process. Old basal atelectasis and proba ble pulmonary fibrosis On admission patient was started on heparin drip and normal saline at 75 mm per hour and nitroglycerin with pain management. Also he is on aspirin 325 mg 09/27/2019 Patient underwent cardiac cath yesterday with stent placed in his right coronary artery. This morning patient denies chest pain or dyspnea. However is complaining of from back pain from lying down. Patient also was complaining of from penile pain during the night and bladder scan showed urinary retention. Patient had Urbina catheter inserted. Patient was not very cooperative this morning for example he refused to provide the name for his primary care doctor. However we instructed the patient to follow-up with his PCP in one week after discharge and he agrees. Patient does not want staff to make appointments for him and he wants to make his appointment with his PCP. Vitals are stable. He has mild leukocytosis, mostly reactive. We'll add lidocaine patch, ask for physical therapy evaluation and urological consult, and Flomax. Discussed with staff Review of systems CONSTITUTIONAL: No fever, no malaise, no fatigue. HEENT: No recent visual problems or hearing problems. Denied any sore throat. CARDIOVASCULAR: No orthopnea, PND, no palpitations, no syncope. PULMONARY: No shortness of breath, no cough, no hemoptysis. GASTROINTESTINAL: No diarrhea, no nausea, no vomiting, no abdominal pain. Normoactive bowel sounds. NEUROLOGICAL: No headaches, no weakness, no numbness. HEMATOLOGICAL: Denies any bleeding or petechiae. GENITOURINARY: Denies any burning micturition, frequency, or urgency. MUSCULOSKELETAL/RHEUMATOLOGICAL: Denies any joint pain, swelling, or any muscle pain. ENDOCRINE: Denies any polyuria or polydipsia. Active Medications Generic Name Dose Route Start Last Admin Trade Name Freq PRN Reason Stop Dose Admin Hydrocodone Bitart/Acetaminophen 1 each 09/25/19 18:19 09/26/19 21:17 Enola 5-325 PO 1 each Q6HR PRN Administration Pain Al Hydroxide/Mg Hydroxide 30 ml 09/26/19 12:59 Maalox PO Q4HR PRN Heartburn Albuterol/Ipratropium 3 ml 09/26/19 21:00 09/27/19 07:48 Duoneb 0.5 Mg-3 Mg/3 Ml Soln INHALATION 3 ml RT-QID DEIDRE Administration Alprazolam 0.25 mg 09/26/19 09:00 09/26/19 03:46 Xanax PO 0.25 mg DAILY DEIDRE Administration Alprazolam 0.25 mg 09/26/19 08:02 09/27/19 00:17 Xanax PO 0.25 mg Q6HR PRN Administration Mild Anxiety Alprazolam 0.5 mg 09/26/19 08:02 Xanax PO Q6HR PRN Moderate Anxiety Aspirin 81 mg 09/27/19 09:00 Aspirin PO DAILY DEIDRE Atorvastatin Calcium 80 mg 09/27/19 21:00 Lipitor PO HS DEIDRE Atropine Sulfate 0.5 mg 09/26/19 12:59 Atropine IV ONCE PRN Symptomatic Bradycardia Budesonide/Formoterol Fumarate 2 puff 09/25/19 20:00 09/27/19 07:48 Symbicort 80-4.5 Mcg Inhaler INHALATION 2 puff RT-BID DEIDRE Administration Docusate Sodium 100 mg 09/25/19 18:19 Colace PO BID PRN Constipation Fluticasone Propionate 2 spray 09/25/19 18:19 Flonase Nasal [place] EA NOSTRIL DAILY PRN Allergy Symptoms Heparin Sodium (Porcine) 0 unit 09/25/19 17:16 Heparin IV PER PROTOCOL PRN Low PTT Protocol Sodium Chloride 1,000 mls @ 20 mls/hr 09/25/19 18:15 09/27/19 08:26 Saline 0.9% IV Not Given .Q24H DEIDRE Sodium Chloride 1,000 mls @ 75 mls/hr 09/26/19 13:00 09/27/19 08:26 Saline 0.9% IV 09/27/19 13:01 Not Given .[id number] DEIDRE Losartan Potassium 50 mg 09/26/19 13:15 09/26/19 17:08 Cozaar PO 50 mg DAILY DEIDRE Administration Metoprolol Tartrate 12.5 mg 09/26/19 09:00 09/26/19 21:17 Lopressor PO 12.5 mg BID DEIDRE Administration Miscellaneous Information 1 each 09/26/19 12:59 Rx Info: Iv Contrast Was Given MISCELLANE 09/28/19 12:59 DAILY PRN Per Protocol Multivitamins 1 each 09/26/19 09:00 09/26/19 17:08 Theragran PO Not Given DAILY DEIDRE Nicotine 1 patch 09/25/19 22:15 09/26/19 08:41 Habitrol 21mg/24hr Patch TRANSDERM 1 patch DAILY DEIDRE Administration Nitroglycerin 0.4 mg 09/26/19 08:02 Nitrostat SUBLINGUAL Q5M PRN Chest Pain Pantoprazole Sodium 40 mg 09/26/19 07:30 09/27/19 06:41 Protonix PO 40 mg AC-BRKFST DEIDRE Administration Ticagrelor 90 mg 09/27/19 09:00 Brilinta PO BID DEIDRE Zolpidem Tartrate 5 mg 09/26/19 12:59 Ambien PO HS PRN Insomnia - Labs CBC & Chem 7: 09/28/19 05:49 09/27/19 05:50 Labs: Abnormal Lab Results - Last 24 Hours (Table) 09/27/19 Range/Units 12:00 POC Glucose (mg/dL) 126 H (75-99) mg/dL Assessment and Plan Assessment: Acute non-STEMI, status post cardiac cath and stent placement of the RCA Urinary retention, status post Urbina catheter insertion generalized abdominal pain and discomfort Hypertension Nicotine dependence and patient agrees to quit the nicotine patch. He is counseled Pulmonary atelectasis and possible fibrosis Osteoarthritis Sleep apnea on CPAP Chronic back pain Hiatal hernia Peripheral vascular disease Plan: This is a pleasant 69 years old male who presents with non-STEMI. Continue with aspirin and brilinta. Follow-up recommendation by marine electrician helper. We'll add lidocaine patch, onto CAT scan of the abdomen and pelvis without IV contrast. We will keep Urbina catheter for now, patient might need to follow up with urologist as an outpatient and discharged with Urbina catheter however patient wanted to be addressed here while in-house. Continue with Flomax. Physical therapy evaluation but patient said clearly he does not want to go to inpatient rehab, however patient is not qualified for inpatient rehab as per PT/OT evaluation Labs and medication were reviewed.. Continue same treatment. Continue with symptomatic treatment. Resume home medication. Monitor lytes and vitals. DVT and GI prophylaxis. Further recommendations of the clinical course of the patient DVT prophylaxis: heparin GI Prophylaxis: Pepcid PT/OT: Home health care Prognosis is guarded
[2019-09-28] MEDS: IOPAMIDOL CONTRAST (ORAL USE) VIAL PO PRN ×2 (10:14→11:13)
--- NOTE | 2019-09-28 13:20 | CT ---
EXAMINATION TYPE: CT abdomen pelvis wo con DATE OF EXAM: 09/28/2019 HISTORY: generalized abd discomfort CT DLP: 1043.4 mGycm. Automated Exposure Control for Dose Reduction was Utilized. TECHNIQUE: CT scan of the abdomen and pelvis is performed with oral but without IV contrast. COMPARISON: Chest x-ray from yesterday FINDINGS: Within the limitations of a non-contrast study, the following observations are made. LUNG BASES: Bibasilar linear scarring and/or atelectasis with additional area of consolidation right lung base just above the diaphragm. Small degree of subareolar gynecomastia bilaterally is present. T here is coronary stent suspected in the RCA distribution. LIVER/GB: Cholecystectomy clips are seen. PANCREAS: No significant abnormality is seen. SPLEEN: No significant abnormality is seen. ADRENALS: Low dense thickening of both adrenal glands favors benign lipid rich hyperplasia.. KIDNEYS: There are low dense lesions throughout both kidneys favoring simple thin-walled cyst with so me thin calcified septation in the medial mid to lower pole right renal cyst. Findings can be confirm ed with ultrasound if desired. No renal calculi or hydronephrosis bilaterally. Urbina catheter in deco mpressed bladder. Scattered pelvic phleboliths bilaterally. BOWEL: Oral contrast reaches level of right colon. There is no suspicious small or large bowel dilata tion. A few scattered colonic diverticula are identified. There is mild wall thickening and diverticu la in the sigmoid colon without surrounding fat stranding. Mild colitis not entirely excluded. GENITAL ORGANS: No gross abnormality seen. LYMPH NODES: No greater than 1cm abdominal or pelvic lymph nodes are appreciated. OSSEOUS STRUCTURES: Moderate narrowing in both hip joints. Transitional type LVI vertebra is sacraliz ed bilaterally. There is a levoconvex scoliosis centered at L2-L3 level. There is multilevel spurring and disc space narrowing most prominent at the L2-L3 level. There is moderate narrowing of both hip joints. OTHER: Small fat-containing left greater than right bilateral inguinal hernias. Mild vascular calcifi cation of the aorta extends into branch vessels. There is some ill-defined fluid and fat stranding ri ght groin region with some adjacent prominent but subcentimeter right groin lymph nodes. Localized in fection at this level is suspected. No well-formed fluid collection or abscess seen. IMPRESSION: 1. Focal acute soft tissue infection or cellulitis right groin region is thought present, correlate c linically. 2. Possible mild sigmoid colitis versus product of poor distention, correlate clinically. 3. Cystic change both kidneys likely Bosniak type I and type II lesions can be confirmed with ultraso und if desired.
--- NOTE | 2019-09-28 15:01 | PN ---
PROGRESS NOTE Mr. Rodriguez is doing well. His right radial and right femoral cath sites are clean and dry with a good pulse. He has issues with urination, has a Urbina catheter. Urology advised that he go home with a catheter. Patient is reluctant. However, after some discussion, he will go home tomorrow on dual antiplatelet therapy. Will follow up with Urology. There is no chest pain or shortness of breath at rest. Vitals are stable, no JVD, S1-S2 heard normally, short systolic murmur noted. Lungs reveal improved air entry. Abdomen and lower extremity exam unchanged. MMODL / IJN: [id number] /
[2019-09-28 16:02] VITALS: RESP 18
[2019-09-28] MEDS ORDERED: amLODIPine 5 MG TAB PO SCH (20:00)
[2019-09-28 20:31] LABS: African American GFR (CKD) >90 (>60 ml/min/1.73 sqM); Anion Gap 4 mmol/L; Blood Urea Nitrogen 24 mg/dL (9-20); Calcium 8.6 mg/dL (8.4-10.2); Carbon Dioxide 31 mmol/L (22-30); Chloride 102 mmol/L (98-107); Glucose 165 mg/dL (74-99); Non-African American GFR(CKD) 87 (>60 ml/min/1.73 sqM); Potassium 4.3 mmol/L (3.5-5.1); Sodium 137 mmol/L (137-145)
[2019-09-28] MEDS: ATORVASTATIN 80 MG TAB PO SCH (21:08)
[2019-09-28] MEDS: metroNIDAZOLE 500 MG TAB PO SCH (21:08)
[2019-09-29] MEDS: PANTOPRAZOLE 40 MG TABLET PO SCH (06:29)
[2019-09-29] MEDS: IPRATROPIUM-ALBUTEROL 3 ML NEB INHALATION SCH ×3 (08:24→17:53)
[2019-09-29] MEDS: SYMBICORT 80-4.5 MCG INHALER INHALATION SCH (08:24)
[2019-09-29 08:26] VITALS: BP 153/70; TEMP 98.3
[2019-09-29] MEDS: LOSARTAN 50 MG TAB PO SCH (09:36)
[2019-09-29] MEDS: METOPROLOL TARTRATE 12.5 MG TAB PO SCH (09:36)
[2019-09-29] MEDS: metroNIDAZOLE 500 MG TAB PO SCH ×2 (09:36→18:20)
[2019-09-29] MEDS: TICAGRELOR 90 MG TAB PO SCH (09:36)
[2019-09-29] MEDS: MULTIVITAMINS, THERA 1 EACH TAB PO SCH (09:36)
[2019-09-29] MEDS: TAMSULOSIN 0.4 MG CAP.ER.24H PO SCH (09:36)
[2019-09-29] MEDS: LIDOCAINE 5% PATCH TOPICAL SCH (09:36)
[2019-09-29] MEDS: ASPIRIN 81 MG PO SCH (09:36)
[2019-09-29] MEDS: NICOTINE 21MG/24HR PATCH TRANSDERM SCH (09:36)
[2019-09-29] MEDS: ALPRAZolam 0.25 MG TAB PO SCH (09:36)
--- NOTE | 2019-09-29 10:38 | PN ---
PROGRESS NOTE Mr. Rodriguez is status post stenting of a complex lesion in the mid and distal RCA. He is doing well. His hospital stay was complicated by some urinary retention for which required a Urbina that was taken out. He is going to increase activity, void, and if he voids, he will be discharged today. I advised him regarding dual antiplatelet therapy and importance of taking statins and refraining from smoking. Patient is doing well. No anginal symptoms. Vitals are stable. There is JVD of 1 cm. No carotid bruit. S1, S2 heard normally, short systolic murmur noted at the base. Lungs are clear with improved air entry. Abdomen is soft. Lower extremities reveal palpable pulses. No edema. Central nervous system is normal. Right radial and right femoral cath sites are clean and dry with a good pulse. Patient will be discharged all discharge instructions regarding activity, diet and medications were given. I will see him in 10 to 14 days. MMODL / IJN: [id number] /
[2019-09-29 12:01] VITALS: PULSE 76
--- NOTE | 2019-09-30 00:24 | P.DS ---
Providers Date of admission: 09/25/19 18:15 Attending physician: Trip Ruiz MD Consults: 09/25/19 18:15 Consult Physician Urgent Consulting Provider: Marek Whitman Consult Reason/Comments: Chest pain with elevated troponin Do you want consulting provider notified?: Already Contacted 09/26/19 12:59 Consult Physician Routine Consulting Provider: [facility] Consult Reason/Comments: Post Interventional patient Do you want consulting provider notified?: Already Contacted 09/27/19 08:39 Consult Physician Urgent Consulting Provider: Samir Gillis Consult Reason/Comments: Urinary retention and penile pain Do you want consulting provider notified?: Yes Primary care physician: Stated None Hospital Course: Diagnoses: Acute non-STEMI, status post cardiac cath and stent placement of the RCA Urinary retention, status post Law catheter insertion generalized lower abdominal pain and discomfort, could be related to mild sigmoid colitis Right pulmonary consolidation, patient is on antibiotics Possible soft tissue cellulitis on the right hip area, low suspicion. However patient is already on antibiotics Hypertension Nicotine dependence and patient agrees to quit the nicotine patch. He is counseled Pulmonary atelectasis and possible fibrosis Osteoarthritis Sleep apnea on CPAP Chronic back pain Hiatal hernia Peripheral vascular disease Hospital course: This is a pleasant 69 years old male with past medical history of hypertension, CVA/TIA, COPD, osteoarthritis, sleep apnea on CPAP, chronic back pain, hiatal hernia, peripheral vascular disease, who presents because of chest pain. Patient was found to have acute non-STEMI, he underwent cardiac cath and stent placed in his right coronary artery by cardiology service. Chest pain been resolved. Patient is kept on dual antiplatelet therapy and he was cleared by cardiology for discharge. Post procedure patient developed urinary retention and Law catheter was placed, urologist recommended keep Law catheter and follow-up outpatient unless he is able to void. however upon pt request and concern regarding his law it was discontinued and post void residual after 45 min ( pt did not allow earlier) showed 104 ml, i discussed this finding with , this mean urine retention but might not need law catheter for now per , especially pt has appointment with tomorrow and he is going to re-evaluate his again, pt is made aware of this and the he told me he will go to his appointment tomorrow. also i discussed with the ct finding of kidney cysts with Besniak I & II, he kindly took note of this and state he will look at it tomorrow as well, pt is also aware of his kid cysts and to be re-assessed tomorrow. risk including but not limited to cancer are explained to pt and he is aware. Patient was complaining of from some lower abdominal pain, CT of the abdomen and pelvis showing mild sigmoid colitis, he had some watery stool followed by a Bulky bowel movement. His abdominal exam looks benign. No nausea vomiting and his tolerating diet well. Patient was started on ceftriaxone and Flagyl. Also incidental findings on the CAT scan he has some consolidation on the right lung and possible cellulitis in the right hip area, however patient does not have overt respiratory symptoms, besides he will be covered by the same antibiotics for his lung and right groin possible infection. Patient was instructed with his PCP to repeat chest x-ray and he agrees. On the right groin/hip area he has right groin wound which looks closed and healing. No surrounding cellulitis but a few bruises, the area looks mildly tender which is expected from his cardiac cath procedure. No overt signs or symptoms of cellulitis, however again patient is already covered by antibiotics. Patient does not have fever, his mildly elevated white cell count came back to normal. i had lenghty discussion with pt about compliance, and we went over his scripts one by one and his follow up appointments and recommendation and he verbalized understanding and acceptance Patient was cleared for discharge by cardiology and neurology services Problems and management plan were discussed with the patient and he verbalized understanding and acceptance Patient was found stable and can be discharged home however he needs follow-up as an outpatient. Patient was instructed to follow up with PCP within one week and patient agrees. Also patient was instructed to follow up with exit booth agent, and urologist in 1-2 weeks and he agrees. pt agrees with appointments with ( he wanted to switch his pcp ) , exit booth agent , ( the same day ) , and tomorrow with Gen: patient is a AAOx3, no distress CVS: S1-S2, RRR, no murmur Lungs: B/L CTA, no wheezing -Abdomen: soft, no distention, mild lower left tenderness,no rebound tenderness or guarding . positive bowel sounds Extremity: no leg edema or induration Time spent more than 35 minutes Patient Condition at Discharge: Fair Plan - Discharge Summary Discharge Rx Participant: No New Discharge Prescriptions: New Tamsulosin [Flomax] 0.4 mg PO DAILY #30 cap Aspirin 81 mg PO DAILY #30 chew Ticagrelor [Brilinta] 90 mg PO BID #60 tab Cefuroxime Axetil [Ceftin] 500 mg PO BID 6 Days #12 tab Losartan [Cozaar] 100 mg PO DAILY #60 tab metroNIDAZOLE [Flagyl] 500 mg PO TID #18 tab Nicotine 21Mg/24Hr Patch [Habitrol] 1 patch TRANSDERM DAILY #30 patch Lidocaine 5% Patch [Lidoderm 5% Patch] 1 patch TOPICAL DAILY #15 patch Atorvastatin [Lipitor] 80 mg PO HS #30 tab Metoprolol Tartrate [Lopressor] 12.5 mg PO BID #60 tab Nitroglycerin Sl Tabs [Nitrostat] 0.4 mg SUBLINGUAL Q5M PRN #20 tab PRN Reason: Chest Pain amLODIPine [Norvasc] 5 mg PO DAILY@1999 #30 tab Pantoprazole [Protonix] 40 mg PO AC-BRKFST #15 tablet.dr Continue Fluticasone/Salmeterol [Advair 250-50 Diskus] 1 puff INHALATION RT-BID Fluticasone Nasal [place] [Flonase Nasal [place]] 2 spr EA NOSTRIL DAILY PRN PRN Reason: Allergy Symptoms guaiFENesin SYRUP 100MG/5ML [Robitussin] 200 mg PO Q6H PRN PRN Reason: Cough Naproxen Sodium [Aleve] 220 mg PO BID PRN PRN Reason: Pain Ipratropium/Albuterol Sulfate [Combivent Respimat Inhaler] 1 puff INHALATION RT-QID PRN #1 inh PRN Reason: Shortness Of Breath Discharge Medication List Fluticasone/Salmeterol [Advair 250-50 Diskus] 1 puff INHALATION RT-BID 06/08/15 [History] Fluticasone Nasal [place] [Flonase Nasal [place]] 2 spr EA NOSTRIL DAILY PRN 09/27/17 [History] guaiFENesin SYRUP 100MG/5ML [Robitussin] 200 mg PO Q6H PRN 09/27/17 [History] Naproxen Sodium [Aleve] 220 mg PO BID PRN 09/25/19 [History] Tamsulosin [Flomax] 0.4 mg PO DAILY #30 cap 09/27/19 [Rx] Aspirin 81 mg PO DAILY #30 chew 09/29/19 [Rx] Atorvastatin [Lipitor] 80 mg PO HS #30 tab 09/29/19 [Rx] Cefuroxime Axetil [Ceftin] 500 mg PO BID 6 Days #12 tab 09/29/19 [Rx] Ipratropium/Albuterol Sulfate [Combivent Respimat Inhaler] 1 puff INHALATION RT- QID PRN #1 inh 09/29/19 [Rx] Lidocaine 5% Patch [Lidoderm 5% Patch] 1 patch TOPICAL DAILY #15 patch 09/29/19 [Rx] Losartan [Cozaar] 100 mg PO DAILY #60 tab 09/29/19 [Rx] Metoprolol Tartrate [Lopressor] 12.5 mg PO BID #60 tab 09/29/19 [Rx] Nicotine 21Mg/24Hr Patch [Habitrol] 1 patch TRANSDERM DAILY #30 patch 09/29/19 [Rx] Nitroglycerin Sl Tabs [Nitrostat] 0.4 mg SUBLINGUAL Q5M PRN #20 tab 09/29/19 [Rx] Pantoprazole [Protonix] 40 mg PO AC-BRKFST #15 tablet.dr 09/29/19 [Rx] Ticagrelor [Brilinta] 90 mg PO BID #60 tab 09/29/19 [Rx] amLODIPine [Norvasc] 5 mg PO DAILY@2000 #30 tab 09/29/19 [Rx] metroNIDAZOLE [Flagyl] 500 mg PO TID #18 tab 09/29/19 [Rx] Follow up Appointment(s)/Referral(s): Parker Ashley DPM [STAFF PHYSICIAN] - 1 Week (Referral for local Electrical Design Technician) Stephania Orosco MD [REFERRING] - 10/06/19 2:40 pm Chetan Ayala MD [STAFF PHYSICIAN] - 09/30/19 2:00 pm (for your renal retension and kidney cysts ) [facility], [NON-STAFF] - None,Stated [Primary Care Provider] - 1-2 days Nghia Hawthorne MD [STAFF PHYSICIAN] - 10/06/19 10:00 am Samir Larson DPM [STAFF PHYSICIAN] - 1 Week (Referral for local Electrical Design Technician) Patient Instructions/Handouts: *Surgery [facility] - After Heart Catheterization - Remediation Project Engineer Instructions, Urinary Retention in Men (ED), Safe Use of Antiplatelet Medication (DC) Activity/Diet/Wound Care/Special Instructions: Tristen script filled at [facility] - copay is $3.60 Discharge Disposition: HOME WITH HOME HEALTH SERVICES
== END 2019-09-29 18:15 | disposition home health service (06) | DRG 247 ==
LOC: EC 15:46 → 3SCARD 18:15
PROVIDERS: ADMIT Internal Medicine; ATTEND Internal Medicine
PROC: 027036Z Dilation of Coronary Artery, One Artery with Three Drug-eluting Intraluminal Devices, Percutaneous Approach (ICD-10-PCS; principal; 2019-09-26 11:10)
PROC: 4A023N7 Measurement of Cardiac Sampling and Pressure, Left Heart, Percutaneous Approach (ICD-10-PCS; 2019-09-26 11:10)
PROC: B2111ZZ Fluoroscopy of Multiple Coronary Arteries using Low Osmolar Contrast (ICD-10-PCS; 2019-09-26 11:10)
DX: I21.4 Non-ST elevation (NSTEMI) myocardial infarction (principal); J98.11 Atelectasis; J44.1 Chronic obstructive pulmonary disease with (acute) exacerbation; L03.115 Cellulitis of right lower limb; I25.10 Atherosclerotic heart disease of native coronary artery without angina pectoris; I73.9 Peripheral vascular disease, unspecified; J84.10 Pulmonary fibrosis, unspecified; K44.9 Diaphragmatic hernia without obstruction or gangrene; M19.90 Unspecified osteoarthritis, unspecified site; G47.30 Sleep apnea, unspecified; Z99.89 Dependence on other enabling machines and devices; F43.10 Post-traumatic stress disorder, unspecified; E78.5 Hyperlipidemia, unspecified; F10.21 Alcohol dependence, in remission; F17.210 Nicotine dependence, cigarettes, uncomplicated; F32.9 Major depressive disorder, single episode, unspecified; F41.9 Anxiety disorder, unspecified; G89.29 Other chronic pain; I10 Essential (primary) hypertension; K52.9 Noninfective gastroenteritis and colitis, unspecified; Z79.82 Long term (current) use of aspirin; Z79.899 Other long term (current) drug therapy; Z80.0 Family history of malignant neoplasm of digestive organs; Z83.3 Family history of diabetes mellitus; Z81.1 Family history of alcohol abuse and dependence; Z86.73 Personal history of transient ischemic attack (TIA), and cerebral infarction without residual deficits; Z90.49 Acquired absence of other specified parts of digestive tract; R33.9 Retention of urine, unspecified; Z60.2 Problems related to living alone; N28.1 Cyst of kidney, acquired
CPT/HCPCS: 36415; 71046; 74176; 80048; 80053; 80061; 82550; 83690; 83735; 83880; 84484; 85025; 85610; 85730; 87324; 92921; 93005; 93306; 93458; 94640; 94760; 96361; 96365; 96366; 96368; 96375; 96376; 99291; C1874

== ENCOUNTER 2019-10-05 09:33 | Observation (INO) | payer MEDICARE, OTHER ==
--- NOTE | 2019-10-05 10:22 | ED ---
General Adult HPI - General Chief complaint: Shortness of Breath Stated complaint: chest pressure Time Seen by Provider: 10/05/19 09:37 Source: EMS Mode of arrival: EMS Limitations: no limitations - History of Present Illness Initial comments: Dictation was produced using [employer] dictation software. please excuse any grammatical, word or spelling errors. Chief Complaint: 55-year-old male presents chief complaint of urinary incontinence. History of Present Illness: 55-year-old male presents today with urinary incontinence. He was brought in by EMS. Patient states in the middle the night he would have these panic breathing episodes. Patient states there is strong concern by his primary care doctor that he has sleep apnea. He is overweight. States that in the middle the night he would wake up and have like a slight choking episode. He states he would then experience an episode of urinary incontinence. Patient had 3-4 episodes overnight. Is not worried so much about his breathing but that he is urinating on himself. Denies any new back pain. No sensory deficits in the arms or legs. No paresthesias. Patient has no pain complaints at this time. Denies any trouble walking. States that he had difficulty urinating after a cath procedure that was performed recently. States that that fully catheter was only temporary and was removed prior to when he was discharged. States that he is not happy with his primary care physician. He is trying to get in touch with a new PCP. The ROS documented in this emergency department record has been reviewed and confirmed by me. Those systems with pertinent positive or negative responses have been documented in the HPI. All other systems are other negative and/or noncontributory. PHYSICAL EXAM: General Impression: Alert and oriented x3, not in acute distress HEENT: Normocephalic atraumatic, extra-ocular movements intact, pupils equal and reactive to light bilaterally, mucous membranes moist. Cardiovascular: Heart regular rate and rhythm, S1&S2 audible, no murmurs, rubs or gallops Chest: Lungs clear to auscultation bilaterally, no rhonchi, no wheeze, no rales Abdomen: Bowel sounds present, abdomen soft, non-tender, non-distended, no organomegaly Musculoskeletal: Pulses present and equal in all extremities, no peripheral edema Motor: no focal deficits noted Neurological: CN II-XII grossly intact, no focal motor or sensory deficits noted Skin: Intact with no visualized rashes Psych: Normal affect and mood : No genital rash, testicular pain with palpation, no perineal erythema ED course: 55 male presents with chief complaint of urinary incontinence. Signs upon arrival are within acceptable limits. Patient not having back pain. No neuro deficits. Laboratory evaluation obtained. CBC, metabolic panel, urinalysis is negative. Patient well-appearing at bedside. Reassurance provided however he is not agreeable for discharge. He lives at home by himself. He is really worried about his Episodes at night. We will plan to have patient admitted to observation for consultation to pulmonology. Patient will be admitted to Dr. Xavier's service. discussed patient case with Dr. Winter EKG interpretation: Ventricular rate 65, normal sinus rhythm, CT interval 156, QRS 78, QTC 399. T-wave inversion in lead 3 and aVF. No other abnormalities noted - Related Data Home Medications Medication Instructions Recorded Confirmed Fluticasone/Salmeterol [Advair 1 puff INHALATION RT-BID 06/08/15 10/05/19 250-50 Diskus] Fluticasone Nasal [place] [Flonase 2 spr EA NOSTRIL DAILY PRN 09/27/17 10/05/19 Nasal [place]] guaiFENesin SYRUP 100MG/5ML 200 mg PO Q6H PRN 09/27/17 10/05/19 [Robitussin] Naproxen Sodium [Aleve] 220 mg PO BID PRN 09/25/19 10/05/19 Previous Rx's Medication Instructions Recorded Tamsulosin [Flomax] 0.4 mg PO DAILY #30 cap 09/27/19 Aspirin 81 mg PO DAILY #30 chew 09/29/19 Atorvastatin [Lipitor] 80 mg PO HS #30 tab 09/29/19 Cefuroxime Axetil [Ceftin] 500 mg PO BID 6 Days #12 tab 09/29/19 Ipratropium/Albuterol Sulfate 1 puff INHALATION RT-QID PRN #1 inh 09/29/19 [Combivent Respimat Inhaler] Losartan [Cozaar] 100 mg PO DAILY #60 tab 09/29/19 Metoprolol Tartrate [Lopressor] 12.5 mg PO BID #60 tab 09/29/19 Nicotine 21Mg/24Hr Patch [Habitrol] 1 patch TRANSDERM DAILY #30 patch 09/29/19 Nitroglycerin Sl Tabs [Nitrostat] 0.4 mg SUBLINGUAL Q5M PRN #20 tab 09/29/19 Pantoprazole [Protonix] 40 mg PO AC-BRKFST #15 tablet. 09/29/19 Ticagrelor [Brilinta] 90 mg PO BID #60 tab 09/29/19 amLODIPine [Norvasc] 5 mg PO DAILY@2000 #30 tab 09/29/19 metroNIDAZOLE [Flagyl] 500 mg PO TID #18 tab 09/29/19 Allergies Allergy/AdvReac Type Severity Reaction Status Date / Time No Known Allergies Allergy Verified 10/05/19 10:21 Review of Systems ROS Statement: Those systems with pertinent positive or pertinent negative responses have been documented in the HPI. ROS Other: All systems not noted in ROS Statement are negative. Past Medical History Past Medical History: COPD, CVA/TIA, Hypertension, Osteoarthritis (OA), Sleep Apnea/CPAP/BIPAP Additional Past Medical History / Comment(s): chronic back pain, PTSD combat related, Hiatal Hernia, pvd, tia, tested 2013 for hiv(neg) per pt.stated carries antibodies for hepatitis a and b. History of Any Multi-Drug Resistant Organisms: None Reported Past Surgical History: Adenoidectomy, Cholecystectomy, Tonsillectomy Additional Past Surgical History / Comment(s): deviated septum sx,rectal fissure surgery, hemorrhoidectomy,2010 lt leg sx-has loly in place. Past Anesthesia/Blood Transfusion Reactions: Motion Sickness Additional Past Anesthesia/Blood Transfusion Reaction / Comment(s): vertigo Past Psychological History: Anxiety, Depression, PTSD Smoking Status: Current some day smoker Past Alcohol Use History: None Reported Past Drug Use History: Marijuana - Past Family History Father Additional Family Medical History / Comment(s): father in airplane crash when in [place]. pt only knows that alcoholism ran in his family Brother Family Medical History: Cancer Additional Family Medical History / Comment(s): Pancreatic Cancer Mother Family Medical History: Diabetes Mellitus General Exam Limitations: no limitations Course Vital Signs 10/05/19 10/05/19 09:38 09:44 Temperature 97.6 F Pulse Rate 67 Respiratory 18 20 Rate Blood Pressure 145/84 O2 Sat by Pulse 98 Oximetry Medical Decision Making - Lab Data Result diagrams: 10/05/19 10:10 10/05/19 10:10 Lab Results 10/05/19 10/05/19 10/05/19 Range/Units 10:10 10:10 10:10 WBC 9.0 (3.8-10.6) k/uL RBC 4.50 (4.30-5.90) m/uL Hgb 13.5 (13.0-17.5) gm/dL Hct 42.0 (39.0-53.0) % MCV 93.2 (80.0-100.0) fL MCH 30.0 (25.0-35.0) pg MCHC 32.2 (31.0-37.0) g/dL RDW 14.2 (11.5-15.5) % Plt Count 344 (150-450) k/uL Neutrophils % 72 % Lymphocytes % 18 % Monocytes % 8 % Eosinophils % 1 % Basophils % 0 % Neutrophils # 6.4 (1.3-7.7) k/uL Lymphocytes # 1.6 (1.0-4.8) k/uL Monocytes # 0.7 (0-1.0) k/uL Eosinophils # 0.1 (0-0.7) k/uL Basophils # 0.0 (0-0.2) k/uL Sodium 137 (137-145) mmol/L Potassium 4.4 (3.5-5.1) mmol/L Chloride 105 (98-107) mmol/L Carbon Dioxide 29 (22-30) mmol/L Anion Gap 5 mmol/L BUN 19 (9-20) mg/dL Creatinine 0.80 (0.66-1.25) mg/dL Est GFR (CKD-EPI)AfAm >90 (>60 ml/min/1.73 sqM) Est GFR (CKD-EPI)NonAf >90 (>60 ml/min/1.73 sqM) Glucose 114 H (74-99) mg/dL Calcium 8.9 (8.4-10.2) mg/dL Urine Color Yellow Urine Appearance Clear (Clear) Urine pH 6.5 (5.0-8.0) Ur Specific [place] 1.017 (1.001-1.035) Urine Protein Negative (Negative) Urine Glucose (UA) Negative (Negative) Urine Ketones Negative (Negative) Urine Blood Negative (Negative) Urine Nitrite Negative (Negative) Urine Bilirubin Negative (Negative) Urine Urobilinogen <2.0 (<2.0) mg/dL Ur Leukocyte Esterase Negative (Negative) Disposition Clinical Impression: Respiratory abnormalities Disposition: ADMITTED IP TO THIS HOSP Condition: Fair Referrals: Stephania Orosco MD [Primary Care Provider] - 1-2 days Decision Time: 12:13
[2019-10-05 10:36] LABS: Basophils % (A) 0 %; Eosinophils # (A) 0.1 k/uL (0-0.7); Eosinophils % (A) 1 %; HGB 13.5 gm/dL (13.0-17.5); Lymphocytes # (A) 1.6 k/uL (1.0-4.8); Lymphocytes % (A) 18 %; MCHC 32.2 g/dL (31.0-37.0); MCV 93.2 fL (80.0-100.0); Mean Platelet Volume 7.4; Monocytes # (A) 0.7 k/uL (0-1.0); Monocytes % (A) 8 %; Neutrophils # (A) 6.4 k/uL (1.3-7.7); Neutrophils % (A) 72 %; Platelet Count 344 k/uL (150-450); RDW 14.2 % (11.5-15.5)
[2019-10-05 10:45] LABS: African American GFR (CKD) >90 (>60 ml/min/1.73 sqM); Blood Urea Nitrogen 19 mg/dL (9-20); Calcium 8.9 mg/dL (8.4-10.2); Carbon Dioxide 29 mmol/L (22-30); Glucose 114 mg/dL (74-99); Non-African American GFR(CKD) >90 (>60 ml/min/1.73 sqM)
[2019-10-05 10:55] LABS: Appearance,Urine Clear (Clear); Bilirubin,Urine Negative (Negative); Blood,Urine Negative (Negative); Color,Urine Yellow; Glucose,Urine (UA) Negative (Negative); Ketones,Urine Negative (Negative); Leukocyte Esterase,Urine Negative (Negative); Nitrite,Urine Negative (Negative); PH, Urine 6.5 (5.0-8.0); Protein,Urine Negative (Negative); Specific Gravity,Urine 1.017 (1.001-1.035); Urobilinogen,Urine <2.0 mg/dL (<2.0)
[2019-10-05 11:28] LABS: Anion Gap 5 mmol/L; Chloride 105 mmol/L (98-107); Potassium 4.4 mmol/L (3.5-5.1); Sodium 137 mmol/L (137-145)
[2019-10-05] MEDS ORDERED: NALOXONE 0.4 MG/ML 1 ML VIAL IV PRN (12:01)
[2019-10-05] MEDS: CEFDINIR 300 MG CAP PO SCH ×2 (15:10→21:29)
--- NOTE | 2019-10-05 15:18 | PN ---
PROGRESS NOTE PULMONARY/CRITICAL CARE CONSULTATION: DATE OF SERVICE: 10/05/2019 REASON FOR CONSULTATION: Sleep apnea syndrome. A 69-year-old male who apparently presented to the emergency room with complaints of urinary incontinence. The patient was recently evaluated with a home sleep study and was discovered to have severe sleep apnea syndrome with an apnea/hypopnea index of 60. He has yet to have his overnight study with CPAP titration. That apparently was scheduled but has not actually taken place. He apparently was having gasping respirations. It probably relates to his underlying sleep apnea syndrome. EMS was called. He apparently was found to have wet the bed. He was recently inpatient between September 25 and and apparently had a cardiac catheterization with stent. He apparently has followup appointment with a primary doctor, Dr. Orosco, as well as a followup appointment with Cardiology and also needs a followup appointment with Dr. Phelps and also Dr. Ayala and Neurology. He seems to be very focused on his urinary incontinence and I told him that was beyond my scope. He does have a history of underlying COPD. It is well controlled. He is not complaining of any shortness of breath per se. . HOME MEDICATIONS: Include Advair, Flonase, Robitussin syrup, naproxen, Flomax, aspirin, Lipitor, Ceftin, Combivent, losartan, metoprolol, nicotine patch, nitroglycerin tablets, Protonix, Brilinta, amlodipine, and Flagyl. ALLERGIES: Denied. MEDICAL HISTORY: Includes COPD, CVA, hypertension, sleep apnea, osteoarthritis, chronic back pain, PTSD, hiatal hernia, peripheral vascular disease, and previous diagnoses of both hepatitis A and hepatitis B. SURGICAL HISTORY: Includes adenoidectomy, cholecystectomy, tonsillectomy, deviated nasal septum repair, rectal fissure surgery, hemorrhoidectomy, and left leg loly insertion. SOCIAL HISTORY: Positive for ongoing tobacco use. He does smoke marijuana. Denies alcohol use. FAMILY HISTORY: Positive for father who in the airplane crash in [place]. Apparently there is a history of alcoholism. Mother has diabetes. Brother has pancreatic cancer. REVIEW OF SYSTEMS: CONSTITUTIONAL: Negative. NEUROLOGIC: Negative. HEENT: Negative. CARDIOVASCULAR: Recent catheterization and stent placement. PULMONARY: Chronic shortness of breath, at baseline. GI: Negative. : Urinary incontinence. RHEUMATOLOGIC: Negative. IMMUNOLOGIC: Negative. ENDOCRINOLOGIC: Negative. DERMATOLOGIC: Negative. Current vital signs are reviewed. Temperature 97.3, heart rate 75, respiratory rate 19, blood pressure 143/86 mean 105 and 2 L saturation 98%. Appears in no acute distress. HEENT: Examination is grossly unremarkable. Mucous membranes are moist. Nasal O2 in place. NECK: Supple, full range of motion. No adenopathy or thyromegaly. Neck veins are flat. CARDIOVASCULAR: Examination reveals regular rhythm and rate. S1, S2 normal. LUNGS: Reveal relatively clear breath sounds. Mild rhonchi. No wheezes or crackles. Breath sounds equal bilaterally. ABDOMEN: Soft, bowel sounds are heard. EXTREMITIES: Intact. Mild edema. SKIN: Without rash. NEUROLOGIC: Examination is brief but nonfocal. No chest x-ray to report. LABS: Reviewed. CBC is completely normal. Electrolytes are normal. Glucose 114. Urine is negative. Medications are reviewed. He is currently just on Tylenol, amlodipine, aspirin, atorvastatin, Omnicef, losartan, metoprolol, Narcan, and Brilinta. ASSESSMENT: 1. Recent demonstration of severe sleep apnea syndrome based on an in-home sleep study, with an apnea/hypopnea index of 60. 2. History of chronic obstructive pulmonary disease. 3. Recent cardiac catheterization with stent placement for coronary artery disease. 4. History of chronic obstructive pulmonary disease from ongoing tobacco use. 5. Cerebrovascular accident. 6. Hypertension. 7. Degenerative joint disease. 8. Chronic back pain. 9. Posttraumatic stress disorder. 10.Hiatal hernia. 11.Peripheral vascular disease. 12.Urinary incontinence. PLAN: The patient does have appointments with his primary doctor tomorrow, which is a new primary doctor, as well as Cardiology. The patient also has apparent followup or should have follow up with Dr. Phelps, my partner for his sleep apnea, as well as Dr. Ayala for his urinary issues. He does need an overnight sleep study and CPAP titration study to determine his settings. Additional recommendations and suggestions are forthcoming. His prognosis is guarded. His COPD is stable. Follow up in my office for his COPD in the future. MMODL / IJN: [id number] /
[2019-10-05 16:14] VITALS: RESP 18
[2019-10-05] MEDS ORDERED: guaiFENesin SYRUP 100MG/5ML 200 MG/10 ML CUP PO PRN (16:17)
[2019-10-05] MEDS ORDERED: FLUTICASONE 50MCG/SPRAY NASAL 16GM EA NOSTRIL PRN (16:17)
--- NOTE | 2019-10-05 16:19 | P.HPIM ---
History of Present Illness this is a pleasant 69 yo M with past medical history of recetn NSTEMI s/p stent placement, hypertension, CVA/TIA, COPD, osteoarthritis, sleep apnea on CPAP, chronic back pain, hiatal hernia, peripheral vascular disease, who presents because of chest pain. who presents because he was having apneic spells that last for 2 seconds, it happended 5-6 times, during which he stopped breathing according for the pt followed by hyperventilation associated with urine incontinence. pt was recently discharged from this hospital few days ago for NSTEMI and stents placed, he had urine retention , he was evaluated by urologist and he supposed to [facility] the next day of discharge , however he said he felt tired and changed his mind , he called and rescheduled for next Thursday. also he supposed to see his fish and wildlife scientific aid and new pcp tomorrow. currently pt is breathing quietly , sitting at bed side and having his meal. no dyspnea/tachypnea was noticed. he denies chest pain , no abdominal pain , no nausea or vomiting , no difficulty walking . labs including cbc, bmp and liver enz were unremarkable, pt was evaluated by pulmonary services, it looks like his s/s are related to sleep apnea, and he has f/u appointment with dr.artinian shepherd. Patient was found to have acute non-STEMI, he underwent cardiac cath and stent placed in his right coronary artery by cardiology service. Chest pain been resolved. Patient is kept on dual antiplatelet therapy and he was cleared by cardiology for discharge. Post procedure patient developed urinary retention and Law catheter was placed, urologist recommended keep Law catheter and follow-up outpatient unless he is able to void. however upon pt request and concern regarding his law it was discontinued and post void residual after 45 min ( pt did not allow earlier) showed 104 ml, i discussed this finding with , this mean urine retention but might not need law catheter for now per , especially pt has appointment with tomorrow and he is going to re-evaluate his again, pt is made aware of this and the he told me he will go to his appointment tomorrow. also i discussed with the ct finding of kidney cysts with Besniak I & II, he kindly took note of this and state he will look at it tomorrow as well, pt is also has urine incontinence during this spells, concerns for stress incontenece, bladder scan , post void was 108 which is similar when it was checked last week and was 104 Review of Systems CONSTITUTIONAL: No fever, no malaise, no fatigue. HEENT: No recent visual problems or hearing problems. Denied any sore throat. CARDIOVASCULAR: No orthopnea, PND, no palpitations, no syncope. PULMONARY: No shortness of breath, no cough, no hemoptysis. GASTROINTESTINAL: No diarrhea, no nausea, no vomiting, no abdominal pain. Normoactive bowel sounds. NEUROLOGICAL: No headaches, no weakness, no numbness. HEMATOLOGICAL: Denies any bleeding or petechiae. GENITOURINARY: Denies any burning micturition, frequency, or urgency. MUSCULOSKELETAL/RHEUMATOLOGICAL: Denies any joint pain, swelling, or any muscle pain. ENDOCRINE: Denies any polyuria or polydipsia. Past Medical History Past Medical History: COPD, CVA/TIA, GERD/Reflux, Hyperlipidemia, Hypertension, Osteoarthritis (OA), Pneumonia, Sleep Apnea/CPAP/BIPAP, Vascular Disorder Additional Past Medical History / Comment(s): Pt recently admitted to [facility] on 09/25/19 with NSTEMI/urinary retention with law/generalized lower abdominal pain thought to possibly be mild colitis, R pulmonary consolidation, possible R hip tissue cellulitis. 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, PVD, chronic low back pain/DDD/scoliosis, cervical pain, bilateral hip pain,chronic lower extremity edema, sinus issues, hiatal hernia, PVD History of Any Multi-Drug Resistant Organisms: None Reported Past Surgical History: Adenoidectomy, Cholecystectomy, Orthopedic Surgery, Tonsillectomy Additional Past Surgical History / Comment(s): 09/26/19 PCI with 2 stents, 2010 L leg surgery and pt thinks he has a loly, R radial head fracture with surgery x2, deviated septum surgery, EGD, colonoscopy, rectal fissure repair, hemorrhoidectomy Past Anesthesia/Blood Transfusion Reactions: No Reported Reaction, Motion Sickness Additional Past Anesthesia/Blood Transfusion Reaction / Comment(s): vertigo Smoking Status: Current every day smoker - Past Family History Father Additional Family Medical History / Comment(s): father in airplane crash when in [place]. pt only knows that alcoholism ran in his family Brother Family Medical History: Cancer Additional Family Medical History / Comment(s): Pancreatic Cancer Mother History Unknown: Yes Family Medical History: Diabetes Mellitus Additional Family Medical History / Comment(s): Mother would not talk about her health. Medications and Allergies Home Medications Medication Instructions Recorded Confirmed Type Fluticasone/Salmeterol [Advair 1 puff INHALATION RT-BID 06/08/15 10/05/19 History 250-50 Diskus] Fluticasone Nasal [place] [Flonase 2 spr EA NOSTRIL DAILY PRN 09/27/17 10/05/19 History Nasal [place]] guaiFENesin SYRUP 100MG/5ML 200 mg PO Q6H PRN 09/27/17 10/05/19 History [Robitussin] Naproxen Sodium [Aleve] 220 mg PO BID PRN 09/25/19 10/05/19 History Tamsulosin [Flomax] 0.4 mg PO DAILY #30 cap 09/27/19 10/05/19 Rx Aspirin 81 mg PO DAILY #30 chew 09/29/19 10/05/19 Rx Atorvastatin [Lipitor] 80 mg PO HS #30 tab 09/29/19 10/05/19 Rx Cefuroxime Axetil [Ceftin] 500 mg PO BID 6 Days #12 tab 09/29/19 10/05/19 Rx Ipratropium/Albuterol Sulfate 1 puff INHALATION RT-QID PRN #1 inh 09/29/19 10/05/19 Rx [Combivent Respimat Inhaler] Losartan [Cozaar] 100 mg PO DAILY #60 tab 09/29/19 10/05/19 Rx Metoprolol Tartrate [Lopressor] 12.5 mg PO BID #60 tab 09/29/19 10/05/19 Rx Nicotine 21Mg/24Hr Patch [Habitrol] 1 patch TRANSDERM DAILY #30 patch 09/29/19 10/05/19 Rx Nitroglycerin Sl Tabs [Nitrostat] 0.4 mg SUBLINGUAL Q5M PRN #20 tab 09/29/19 10/05/19 Rx Pantoprazole [Protonix] 40 mg PO AC-BRKFST #15 tablet.dr 09/29/19 10/05/19 Rx Ticagrelor [Brilinta] 90 mg PO BID #60 tab 09/29/19 10/05/19 Rx amLODIPine [Norvasc] 5 mg PO DAILY@1999 #30 tab 09/29/19 10/05/19 Rx metroNIDAZOLE [Flagyl] 500 mg PO TID #18 tab 09/29/19 10/05/19 Rx Allergies Allergy/AdvReac Type Severity Reaction Status Date / Time No Known Allergies Allergy Verified 10/05/19 10:21 Physical Exam Vitals: Vital Signs Temp Pulse Pulse Resp BP BP Pulse Ox 10/05/19 13:09 97.3 F L 75 19 143/86 97 10/05/19 12:19 97.8 F 66 16 145/83 97 10/05/19 09:44 20 10/05/19 09:38 97.6 F 67 18 145/84 98 Intake and Output 10/05/19 10/05/19 10/05/19 06:59 14:59 22:59 Output Total 36 Balance -36 Output: Post Void Residual 36 Other: Weight 94.347 kg GENERAL: The patient is alert and oriented x3, not in any acute distress. Well developed, well nourished. HEENT: Pupils are round and equally reacting to light. EOMI. No scleral icterus. No conjunctival pallor. Normocephalic, atraumatic. No pharyngeal erythema. No thyromegaly. CARDIOVASCULAR: S1 and S2 present. No murmurs, rubs, or gallops. PULMONARY: Chest is clear to auscultation, no wheezing or crackles. ABDOMEN: Soft, nontender, nondistended, normoactive bowel sounds. No palpable organomegaly. MUSCULOSKELETAL: No joint swelling or deformity. EXTREMITIES: No cyanosis, clubbing, or pedal edema. NEUROLOGICAL: Gross neurological examination did not reveal any focal deficits. SKIN: No rashes. Results CBC & Chem 7: 10/05/19 10:10 10/05/19 10:10 Labs: Abnormal Lab Results - Last 24 Hours (Table) 10/05/19 Range/Units 10:10 Glucose 114 H (74-99) mg/dL Thrombosis Risk Factor Assmnt - Choose All That Apply Any of the Below Risk Factors Present?: Yes Each Factor Represents 1 point: Abnormal pulmonary function (COPD), Obesity (BMI >25) Other Risk Factors: Yes Each Risk Factor Represents 2 Points: Age 61-74 years Other congenital or acquired thrombophilia - If yes, enter type in comment: No Thrombosis Risk Factor Assessment Total Risk Factor Score: 4 Thrombosis Risk Factor Assessment Level: Moderate Risk Assessment and Plan Assessment: apnea spell , mostly related to severe sleep apnea urine incontinence and history of urine retention recent history of non-STEMI, status post cardiac cath and stent placement of the RCA recetn history of Urinary retention kidney cysts with Besniak I & II seen on ct scan last admission generalized lower abdominal pain and discomfort, could be related to mild sigmoid colitis Right pulmonary consolidation, patient is on antibiotics Possible soft tissue cellulitis on the right hip area, low suspicion. However patient is already on antibiotics Hypertension Nicotine dependence and patient agrees to quit the nicotine patch. He is counseled Pulmonary atelectasis and possible fibrosis Osteoarthritis Sleep apnea on CPAP Chronic back pain Hiatal hernia Peripheral vascular disease Plan: this is a pleasant 69 yo M who present with apneic spells related to sleep apnea and urine incontinance. pulmonary service evaluated pt and recommended outpt follow for his sleep study, for his urine incontinence, pt will need to see a urologist, pt is already has an appointment with urologist next thursday Labs and medication were reviewed.. Continue same treatment. Continue with symptomatic treatment. Resume home medication. Monitor lytes and vitals. DVT and GI prophylaxis. Further recommendations of the clinical course of the patient DVT prophylaxis: Subcutaneous heparin GI Prophylaxis: Ppi
[2019-10-05] MEDS: TAMSULOSIN 0.4 MG CAP.ER.24H PO SCH (16:49)
[2019-10-05] MEDS: SYMBICORT 80-4.5 MCG INHALER INHALATION SCH (19:49)
[2019-10-05] MEDS ORDERED: amLODIPine 5 MG TAB PO SCH (20:00)
[2019-10-05] MEDS ORDERED: ATORVASTATIN 80 MG TAB PO SCH (21:00)
[2019-10-05] MEDS: metroNIDAZOLE 500 MG TAB PO SCH (21:29)
[2019-10-05] MEDS: TICAGRELOR 90 MG TAB PO SCH (21:29)
[2019-10-05] MEDS: METOPROLOL TARTRATE 12.5 MG TAB PO SCH (21:29)
[2019-10-05] MEDS: HEPARIN SODIUM,PORCINE 5,000 UNIT/ML 1 ML VIAL SQ SCH (21:32)
[2019-10-05] MEDS: ACETAMINOPHEN TAB 325 MG TAB PO PRN (21:40)
[2019-10-05] MEDS ORDERED: MELATONIN 3 MG TABLET PO ONE (23:05)
[2019-10-06] MEDS: ACETAMINOPHEN TAB 325 MG TAB PO PRN (06:09)
[2019-10-06] MEDS ORDERED: PANTOPRAZOLE 40 MG TABLET PO SCH (07:30)
[2019-10-06] MEDS: SYMBICORT 80-4.5 MCG INHALER INHALATION SCH (07:39)
[2019-10-06 08:04] VITALS: BP 120/71; PULSE 76; TEMP 97.5
[2019-10-06] MEDS ORDERED: LOSARTAN 50 MG TAB PO SCH (09:00)
[2019-10-06] MEDS ORDERED: NICOTINE 21MG/24HR PATCH TRANSDERM SCH (09:00)
[2019-10-06] MEDS ORDERED: ASPIRIN 81 MG PO SCH (09:00)
[2019-10-06] MEDS: HEPARIN SODIUM,PORCINE 5,000 UNIT/ML 1 ML VIAL SQ SCH (09:27)
[2019-10-06] MEDS: METOPROLOL TARTRATE 12.5 MG TAB PO SCH (09:35)
[2019-10-06] MEDS: TICAGRELOR 90 MG TAB PO SCH (09:35)
[2019-10-06] MEDS: CEFDINIR 300 MG CAP PO SCH (09:35)
[2019-10-06] MEDS: metroNIDAZOLE 500 MG TAB PO SCH (09:35)
[2019-10-06] MEDS: TAMSULOSIN 0.4 MG CAP.ER.24H PO SCH (09:35)
--- NOTE | 2019-10-06 13:29 | P.DS ---
Providers Date of admission: 10/05/19 12:01 Attending physician: Celestina Xavier Consults: 10/05/19 12:01 Consult Physician Routine Consulting Provider: Leana Phelps Consult Reason/Comments: sleep apnea Do you want consulting provider notified?: Yes 10/05/19 16:18 Consult Physician Routine Consulting Provider: Dany Barber Consult Reason/Comments: urinary incontinence Do you want consulting provider notified?: Yes Primary care physician: Ana Luisa Cat Hospital Course: Diagnoses: apnea spell , mostly related to severe sleep apnea urine incontinence and history of urine retention , ongoing problem. Patient referred to urologist as an outpatient recent history of non-STEMI, status post cardiac cath and stent placement of the RCA recetn history of Urinary retention kidney cysts with Besniak I & II seen on ct scan last admission generalized lower abdominal pain and discomfort, could be related to mild sigmoid colitis Right pulmonary consolidation, patient is on antibiotics Possible soft tissue cellulitis on the right hip area, low suspicion. However patient is already on antibiotics Hypertension Nicotine dependence and patient agrees to quit the nicotine patch. He is counseled Pulmonary atelectasis and possible fibrosis Osteoarthritis Sleep apnea on CPAP Chronic back pain Hiatal hernia Peripheral vascular disease Hospital course: this is a pleasant 69 yo M with past medical history of recetn NSTEMI s/p stent placement, hypertension, CVA/TIA, COPD, osteoarthritis, sleep apnea on CPAP, chronic back pain, hiatal hernia, peripheral vascular disease,who presents because he was having apneic spells that last for 2 seconds, it happended 5-6 times, during which he stopped breathing according for the pt followed by hyperventilation associated with urine incontinence. pt was recently discharged from this hospital few days ago for NSTEMI and stents placed, he had urine retention , he was evaluated by urologist and he supposed to follow up with the urologist the next day of discharge , however he said he felt tired and changed his mind , he called and rescheduled for next Thursday. also he supposed to see his blue leather sorter and new pcp tomorrow. currently pt is breathing quietly , sitting at bed side and having his meal. no dyspnea/tachypnea was noticed. he denies chest pain , no abdominal pain , no nausea or vomiting , no difficulty walking . labs including cbc, bmp and liver enz were unremarkable, pt was evaluated by pulmonary services, it looks like his s/s are related to sleep apnea, and he has f/u appointment with soon. patient has been evaluated by health unit supervisor and recommended a sleep study as an outpatient, or the appointments made for him with the sleep center at 10/10 8 PM and he agrees with it after that he is going to follow-up with Dr. Phelps staff contacted urologist for consult, and after reviewing the case recommended patient to follow-up with his appointment as an outpatient as he is been evaluated during last admission Patient still have some abdominal discomfort and loose stool and treatments on antibiotic. No other new complaints. No dizziness or weakness. Patient was cleared for discharge by pulmonary and neurology services Problems and management plan were discussed with the patient and he verbalized understanding and acceptance Patient was found stable and can be discharged home however he needs follow-up as an outpatient. Patient was instructed to follow up with PCP within one week and patient agrees. Patient agrees to follow-up with wilner Arita tumma , and a sleep study then Dr. Phelps, and agrees with their time (see discharge instructions) Gen: patient is a AAOx3, no distress CVS: S1-S2, RRR, no murmur Lungs: B/L CTA, no wheezing Abdomen: soft, no distention, no tenderness, positive bowel sounds Extremity: no leg edema or induration Time spent more than 35 minutes Patient Condition at Discharge: Fair Plan - Discharge Summary Discharge Rx Participant: No New Discharge Prescriptions: Continue Fluticasone/Salmeterol [Advair 250-50 Diskus] 1 puff INHALATION RT-BID Fluticasone Nasal [place] [Flonase Nasal [place]] 2 spr EA NOSTRIL DAILY PRN PRN Reason: Allergy Symptoms guaiFENesin SYRUP 100MG/5ML [Robitussin] 200 mg PO Q6H PRN PRN Reason: Cough Naproxen Sodium [Aleve] 220 mg PO BID PRN PRN Reason: Pain Tamsulosin [Flomax] 0.4 mg PO DAILY #30 cap Aspirin 81 mg PO DAILY #30 chew Ticagrelor [Brilinta] 90 mg PO BID #60 tab Cefuroxime Axetil [Ceftin] 500 mg PO BID 6 Days #12 tab Losartan [Cozaar] 100 mg PO DAILY #60 tab metroNIDAZOLE [Flagyl] 500 mg PO TID #18 tab Nicotine 21Mg/24Hr Patch [Habitrol] 1 patch TRANSDERM DAILY #30 patch Atorvastatin [Lipitor] 80 mg PO HS #30 tab Metoprolol Tartrate [Lopressor] 12.5 mg PO BID #60 tab Nitroglycerin Sl Tabs [Nitrostat] 0.4 mg SUBLINGUAL Q5M PRN #20 tab PRN Reason: Chest Pain amLODIPine [Norvasc] 5 mg PO DAILY@1999 #30 tab Pantoprazole [Protonix] 40 mg PO AC-BRKFST #15 tablet. Ipratropium/Albuterol Sulfate [Combivent Respimat Inhaler] 1 puff INHALATION RT-QID PRN #1 inh PRN Reason: Shortness Of Breath Discharge Medication List Fluticasone/Salmeterol [Advair 250-50 Diskus] 1 puff INHALATION RT-BID 06/08/15 [History] Fluticasone Nasal [place] [Flonase Nasal [place]] 2 spr EA NOSTRIL DAILY PRN 09/27/17 [History] guaiFENesin SYRUP 100MG/5ML [Robitussin] 200 mg PO Q6H PRN 09/27/17 [History] Naproxen Sodium [Aleve] 220 mg PO BID PRN 09/25/19 [History] Tamsulosin [Flomax] 0.4 mg PO DAILY #30 cap 09/27/19 [Rx] Aspirin 81 mg PO DAILY #30 chew 09/29/19 [Rx] Atorvastatin [Lipitor] 80 mg PO HS #30 tab 09/29/19 [Rx] Cefuroxime Axetil [Ceftin] 500 mg PO BID 6 Days #12 tab 09/29/19 [Rx] Ipratropium/Albuterol Sulfate [Combivent Respimat Inhaler] 1 puff INHALATION RT- QID PRN #1 inh 09/29/19 [Rx] Losartan [Cozaar] 100 mg PO DAILY #60 tab 09/29/19 [Rx] Metoprolol Tartrate [Lopressor] 12.5 mg PO BID #60 tab 09/29/19 [Rx] Nicotine 21Mg/24Hr Patch [Habitrol] 1 patch TRANSDERM DAILY #30 patch 09/29/19 [Rx] Nitroglycerin Sl Tabs [Nitrostat] 0.4 mg SUBLINGUAL Q5M PRN #20 tab 09/29/19 [Rx] Pantoprazole [Protonix] 40 mg PO LUANN-BRKFST #15 tablet. 09/29/19 [Rx] Ticagrelor [Brilinta] 90 mg PO BID #60 tab 09/29/19 [Rx] amLODIPine [Norvasc] 5 mg PO DAILY@2000 #30 tab 09/29/19 [Rx] metroNIDAZOLE [Flagyl] 500 mg PO TID #18 tab 09/29/19 [Rx] Follow up Appointment(s)/Referral(s): Stephania Orosco MD [Primary Care Provider] - 10/11/19 Chetan Ayala MD [STAFF PHYSICIAN] - 10/12/19 8:00 am (For your kidney cysts and urinary retention Please call office to confirm appointment and time) Nghia Hawthorne MD [STAFF PHYSICIAN] - 10/07/19 9:45 am Leana Phelps MD [STAFF PHYSICIAN] - 10/10/19 8:00 pm (Appointment made for Sleep Study at [facility] in [place]. ) Patient Instructions/Handouts: Sleep Apnea (GEN)
== END 2019-10-06 15:03 | disposition home or self-care (01) ==
LOC: EC 09:33 → 1SOBS 12:01
PROVIDERS: ADMIT Hospitalist; ATTEND Hospitalist
DX: G47.30 Sleep apnea, unspecified (principal); R32 Unspecified urinary incontinence; Z87.448 Personal history of other diseases of urinary system; I21.4 Non-ST elevation (NSTEMI) myocardial infarction; Z95.5 Presence of coronary angioplasty implant and graft; N28.1 Cyst of kidney, acquired; R10.84 Generalized abdominal pain; R10.30 Lower abdominal pain, unspecified; J18.1 Lobar pneumonia, unspecified organism; I10 Essential (primary) hypertension; F17.200 Nicotine dependence, unspecified, uncomplicated; Z71.6 Tobacco abuse counseling; J98.11 Atelectasis; M19.90 Unspecified osteoarthritis, unspecified site; Z99.89 Dependence on other enabling machines and devices; G89.29 Other chronic pain; M54.9 Dorsalgia, unspecified; K44.9 Diaphragmatic hernia without obstruction or gangrene; I73.9 Peripheral vascular disease, unspecified; E66.9 Obesity, unspecified; J44.9 Chronic obstructive pulmonary disease, unspecified; F43.10 Post-traumatic stress disorder, unspecified; F41.9 Anxiety disorder, unspecified; F32.9 Major depressive disorder, single episode, unspecified; Z68.33 Body mass index [BMI] 33.0-33.9, adult; Z79.51 Long term (current) use of inhaled steroids; Z79.899 Other long term (current) drug therapy; Z79.1 Long term (current) use of non-steroidal anti-inflammatories (NSAID); Z86.73 Personal history of transient ischemic attack (TIA), and cerebral infarction without residual deficits; Z22.8 Carrier of other infectious diseases; Z90.89 Acquired absence of other organs; Z90.49 Acquired absence of other specified parts of digestive tract; Z98.890 Other specified postprocedural states; Z87.19 Personal history of other diseases of the digestive system; Z91.89 Other specified personal risk factors, not elsewhere classified; Z79.82 Long term (current) use of aspirin; Z79.02 Long term (current) use of antithrombotics/antiplatelets; Z86.19 Personal history of other infectious and parasitic diseases; Z81.1 Family history of alcohol abuse and dependence; Z80.0 Family history of malignant neoplasm of digestive organs; Z83.3 Family history of diabetes mellitus
CPT/HCPCS: 99285; 36415; 94640 ×2; 93005; 80048; 85025; 81003; G0378 ×2; S4990

== ENCOUNTER → 2019-10-07 | Outpatient (CLI) | payer MEDICARE, OTHER ==
[2019-10-07 18:12] LABS: Chol/HDL Ratio 2.43; LDL Cholesterol,Calculated 61.6 mg/dL (0.0-131.0); VLDL Calculation 18.4 mg/dL (5.00-40.00)
== END ==
LOC: LABWHC1 10:29
PROVIDERS: ATTEND Internal Medicine Cardiovascular Disease
DX: E78.2 Mixed hyperlipidemia (principal)
CPT/HCPCS: 36415; 80061; 84460

== ENCOUNTER → 2019-10-15 | Outpatient (CLI) | payer MEDICARE, OTHER ==
--- NOTE | 2019-10-17 08:42 | CT ---
EXAMINATION TYPE: CT abdomen w con DATE OF EXAM: 10/15/2019 COMPARISON: 09/28/2019 HISTORY: Renal cyst CT DLP: 1234.1 mGycm CONTRAST: CT scan of the abdomen is performed with Oral Contrast and with IV Contrast, patient injected with 10 0 mL of Isovue 300. FINDINGS: LUNG BASES-: No visible nodule. No infiltrate. There is linear basilar atelectasis identified. LIVER/GB: No calcified gallstones. No space occupying hepatic lesion. Biliary tree is of normal ca liber. PANCREAS: No inflammation. No distinct mass. SPLEEN: No splenic enlargement. No lesion seen. ADRENALS: No nodule. No thickening. KIDNEYS/BLADDER: No hydronephrosis. No nephrolithiasis. Simple renal cysts noted bilaterally the la rgest lower pole right kidney measures 3.9 cm with Hounsfield unit measurement of 8.4. The left kidne y demonstrates smaller cysts measuring up to 9.5 mm. No distinct solid lesion is appreciated. BOWEL: Normal appendix. Normal bowel caliber. No inflammation. LYMPH NODES: No greater than 1cm abdominal or pelvic lymph nodes are appreciated. AORTA: No significant abnormality. OSSEOUS STRUCTURES: No significant abnormality is seen. OTHER: No significant additional abnormality is seen. IMPRESSION: 1. Simple renal cysts as noted.
== END | disposition home or self-care (01) ==
LOC: RADCTMAIN 13:47
PROVIDERS: ATTEND Urology
DX: N28.1 Cyst of kidney, acquired (principal)
CPT/HCPCS: 74160; Q9967

== ENCOUNTER 2019-11-06 03:51 | Inpatient (IN) | payer MEDICARE, OTHER ==
[2019-11-06] MEDS ORDERED: MAGNESIUM SULFATE-D5W PMX 1 GM in DEXTROSE/WATER 1 100ML.BAG IVPB STA (04:12)
[2019-11-06] MEDS ORDERED: SODIUM CHLORIDE 0.9% 1,000 ML IV STA (04:12)
--- NOTE | 2019-11-06 04:20 | ED ---
General Adult HPI - General Chief complaint: Shortness of Breath Stated complaint: SOB Source: patient, EMS Mode of arrival: EMS Limitations: no limitations - History of Present Illness Initial comments: The patient is a 69-year-old male with past medical history of coronary artery disease, CVA, hypertension who presents to the emergency room with reported shortness of breath. He states that he was sitting in a chair at home when he leaned forward to grab his Pepsi. States he had sudden onset of shortness of breath. He states he felt as if "his diaphragm wasn't working". He had pressure in his lower abdomen and ended up having an episode of incontinence. States that this is not the first time that this has happened. He was recently hospitalized for urinary incontinence. He also had 2 stents placed in September. She admits to a history of COPD. Does not normally wear oxygen at home. He denies any cough or hemoptysis. No fevers or chills. Denies ripping or tearing sensation to his back. Denies chest pain. Reports that the symptoms will come in waves. There are no other alleviating, precipitating or modifying factors - Related Data Home Medications Medication Instructions Recorded Confirmed Fluticasone/Salmeterol [Advair 1 puff INHALATION RT-BID 06/08/15 11/06/19 250-50 Diskus] Fluticasone Nasal [place] [Flonase 2 spr EA NOSTRIL DAILY PRN 09/27/17 11/06/19 Nasal [place]] guaiFENesin SYRUP 100MG/5ML 200 mg PO Q6H PRN 09/27/17 11/06/19 [Robitussin] Naproxen Sodium [Aleve] 220 mg PO BID PRN 09/25/19 11/06/19 Previous Rx's Medication Instructions Recorded Aspirin 81 mg PO DAILY #30 chew 09/29/19 Atorvastatin [Lipitor] 80 mg PO HS #30 tab 09/29/19 Ipratropium/Albuterol Sulfate 1 puff INHALATION RT-QID PRN #1 inh 09/29/19 [Combivent Respimat Inhaler] Losartan [Cozaar] 100 mg PO DAILY #60 tab 09/29/19 Metoprolol Tartrate [Lopressor] 12.5 mg PO BID #60 tab 09/29/19 Nicotine 21Mg/24Hr Patch [Habitrol] 1 patch TRANSDERM DAILY #30 patch 09/29/19 Nitroglycerin Sl Tabs [Nitrostat] 0.4 mg SUBLINGUAL Q5M PRN #20 tab 09/29/19 Pantoprazole [Protonix] 40 mg PO AC-BRKFST #15 tablet. 09/29/19 Ticagrelor [Brilinta] 90 mg PO BID #60 tab 09/29/19 amLODIPine [Norvasc] 5 mg PO DAILY@2000 #30 tab 09/29/19 Allergies Allergy/AdvReac Type Severity Reaction Status Date / Time No Known Allergies Allergy Verified 10/05/19 10:21 Review of Systems ROS Statement: Those systems with pertinent positive or pertinent negative responses have been documented in the HPI. ROS Other: All systems not noted in ROS Statement are negative. Past Medical History Past Medical History: COPD, CVA/TIA, GERD/Reflux, Hyperlipidemia, Hypertension, Osteoarthritis (OA), Pneumonia, Sleep Apnea/CPAP/BIPAP, Vascular Disorder Additional Past Medical History / Comment(s): Pt recently admitted to [facility] on 09/25/19 with NSTEMI/urinary retention with law/generalized lower abdominal pain thought to possibly be mild colitis, R pulmonary consolidation, possible R hip tissue cellulitis. 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, PVD, chronic low back pain/DDD/scoliosis, cervical pain, bilateral hip pain,chronic lower extremity edema, sinus issues, hiatal hernia, PVD History of Any Multi-Drug Resistant Organisms: None Reported Past Surgical History: Adenoidectomy, Cholecystectomy, Orthopedic Surgery, Tonsillectomy Additional Past Surgical History / Comment(s): 09/26/19 PCI with 2 stents, 2010 L leg surgery and pt thinks he has a loly, R radial head fracture with surgery x2, deviated septum surgery, EGD, colonoscopy, rectal fissure repair, hemorrhoidectomy Past Anesthesia/Blood Transfusion Reactions: No Reported Reaction, Motion Sickness Additional Past Anesthesia/Blood Transfusion Reaction / Comment(s): vertigo Past Psychological History: Anxiety, Depression, PTSD Smoking Status: Current every day smoker Past Alcohol Use History: None Reported Past Drug Use History: None Reported - Past Family History Father Additional Family Medical History / Comment(s): father in airplane crash when in [place]. pt only knows that alcoholism ran in his family Brother Family Medical History: Cancer Additional Family Medical History / Comment(s): Pancreatic Cancer Mother History Unknown: Yes Family Medical History: Diabetes Mellitus Additional Family Medical History / Comment(s): Mother would not talk about her health. General Exam Limitations: no limitations Course Vital Signs 11/06/19 11/06/19 11/06/19 03:55 04:30 05:00 Temperature 98.7 F Pulse Rate 89 90 85 Respiratory 18 18 18 Rate Blood Pressure 122/81 142/72 123/50 O2 Sat by Pulse 96 96 97 Oximetry 11/06/19 06:03 Temperature Pulse Rate 96 Respiratory 19 Rate Blood Pressure 114/66 O2 Sat by Pulse 97 Oximetry EKG Findings - EKG Comments: EKG Findings:: EKG demonstrates atrial fibrillation with a rate of 87. QRS 78. QTC of 397. No acute ST segment elevations or depressions concerning for ischemic changes. Inverted T-wave in 3 and aVF. T-wave inversions were present on last EKG Medical Decision Making - Medical Decision Making Upon arrival the patient is placed in room 3. A thorough history and physical exam was performed. EMS did note that the patient was in A. fib on the monitor. The patient refuses a history of this. We did obtain a 12-lead EKG which does demonstrate A. fib. As the patient is getting situated in bed he does have several episodes of bradycardia. The patient's loss heart rate went down to 16. The patient felt short of breath during these episodes. I did recommend laboratory studies and a chest x-ray. There were trace studies are unremarkable. Chest x-ray demonstrates atelectasis at the lung bases similar to old exam. The patient is reevaluated and states that he has had no further episodes however he does stand to urinate. It is noted that the patient does bradycardia down to 30 on the monitor. Subsequently after the patient complained of shortness of breath. I did recommend hospital admission. The patient was admitted to [facility]. I called and discussed the case with Dr. Banks at 5:45 am who recommended holding patient's beta tim. I discussed the case with Dr. Ruiz who accepted admisison. The patient was transferred to the floor in stable condition - Lab Data Result diagrams: 11/06/19 04:13 11/06/19 04:13 Lab Results 11/06/19 11/06/19 11/06/19 Range/Units 04:13 04:13 04:13 WBC 10.3 (3.8-10.6) k/uL RBC 5.03 (4.30-5.90) m/uL Hgb 15.2 (13.0-17.5) gm/dL Hct 46.2 (39.0-53.0) % MCV 91.7 (80.0-100.0) fL MCH 30.1 (25.0-35.0) pg MCHC 32.8 (31.0-37.0) g/dL RDW 13.9 (11.5-15.5) % Plt Count 309 (150-450) k/uL Neutrophils % 56 % Lymphocytes % 31 % Monocytes % 8 % Eosinophils % 1 % Basophils % 0 % Neutrophils # 5.8 (1.3-7.7) k/uL Lymphocytes # 3.2 (1.0-4.8) k/uL Monocytes # 0.8 (0-1.0) k/uL Eosinophils # 0.1 (0-0.7) k/uL Basophils # 0.0 (0-0.2) k/uL PT (9.0-12.0) sec INR (<1.2) APTT (22.0-30.0) sec Sodium 136 L (137-145) mmol/L Potassium 4.4 (3.5-5.1) mmol/L Chloride 103 (98-107) mmol/L Carbon Dioxide 25 (22-30) mmol/L Anion Gap 8 mmol/L BUN 20 (9-20) mg/dL Creatinine 0.80 (0.66-1.25) mg/dL Est GFR (CKD-EPI)AfAm >90 (>60 ml/min/1.73 sqM) Est GFR (CKD-EPI)NonAf >90 (>60 ml/min/1.73 sqM) Glucose 109 H (74-99) mg/dL Calcium 9.3 (8.4-10.2) mg/dL Magnesium 2.2 (1.6-2.3) mg/dL Total Bilirubin 0.6 (0.2-1.3) mg/dL AST 29 (17-59) U/L ALT 27 (4-49) U/L Alkaline Phosphatase 147 H (38-126) U/L Troponin I (0.000-0.034) ng/mL NT-Pro-B Natriuret Pep 78 pg/mL Total Protein 6.8 (6.3-8.2) g/dL Albumin 3.9 (3.5-5.0) g/dL 11/06/19 11/06/19 Range/Units 04:13 04:13 WBC (3.8-10.6) k/uL RBC (4.30-5.90) m/uL Hgb (13.0-17.5) gm/dL Hct (39.0-53.0) % MCV (80.0-100.0) fL MCH (25.0-35.0) pg MCHC (31.0-37.0) g/dL RDW (11.5-15.5) % Plt Count (150-450) k/uL Neutrophils % % Lymphocytes % % Monocytes % % Eosinophils % % Basophils % % Neutrophils # (1.3-7.7) k/uL Lymphocytes # (1.0-4.8) k/uL Monocytes # (0-1.0) k/uL Eosinophils # (0-0.7) k/uL Basophils # (0-0.2) k/uL PT 9.4 (9.0-12.0) sec INR 0.9 (<1.2) APTT 23.9 (22.0-30.0) sec Sodium (137-145) mmol/L Potassium (3.5-5.1) mmol/L Chloride (98-107) mmol/L Carbon Dioxide (22-30) mmol/L Anion Gap mmol/L BUN (9-20) mg/dL Creatinine (0.66-1.25) mg/dL Est GFR (CKD-EPI)AfAm (>60 ml/min/1.73 sqM) Est GFR (CKD-EPI)NonAf (>60 ml/min/1.73 sqM) Glucose (74-99) mg/dL Calcium (8.4-10.2) mg/dL Magnesium (1.6-2.3) mg/dL Total Bilirubin (0.2-1.3) mg/dL AST (17-59) U/L ALT (4-49) U/L Alkaline Phosphatase (38-126) U/L Troponin I <0.012 (0.000-0.034) ng/mL NT-Pro-B Natriuret Pep pg/mL Total Protein (6.3-8.2) g/dL Albumin (3.5-5.0) g/dL Disposition Clinical Impression: New onset a-fib, Acute respiratory insufficiency Disposition: ADMITTED IP TO THIS HOSP Condition: Stable Is patient prescribed a controlled substance at d/c from ED?: No Decision to Admit Reason: Admit from EC Decision Date: 11/06/19 Decision Time: 05:39
[2019-11-06 04:25] LABS: Basophils % (A) 0 %; Eosinophils # (A) 0.1 k/uL (0-0.7); Eosinophils % (A) 1 %; HCT 46.2 % (39.0-53.0); HGB 15.2 gm/dL (13.0-17.5); Lymphocytes # (A) 3.2 k/uL (1.0-4.8); Lymphocytes % (A) 31 %; MCH 30.1 pg (25.0-35.0); MCHC 32.8 g/dL (31.0-37.0); MCV 91.7 fL (80.0-100.0); Mean Platelet Volume 7.4; Monocytes # (A) 0.8 k/uL (0-1.0); Monocytes % (A) 8 %; Neutrophils # (A) 5.8 k/uL (1.3-7.7); Neutrophils % (A) 56 %; Platelet Count 309 k/uL (150-450); RBC 5.03 m/uL (4.30-5.90); RDW 13.9 % (11.5-15.5); WBC 10.3 k/uL (3.8-10.6)
[2019-11-06 04:38] LABS: ALT 27 U/L (4-49); AST 29 U/L (17-59); African American GFR (CKD) >90 (>60 ml/min/1.73 sqM); Albumin 3.9 g/dL (3.5-5.0); Alkaline Phosphatase 147 U/L (38-126); Anion Gap 8 mmol/L; Blood Urea Nitrogen 20 mg/dL (9-20); Calcium 9.3 mg/dL (8.4-10.2); Carbon Dioxide 25 mmol/L (22-30); Chloride 103 mmol/L (98-107); Glucose 109 mg/dL (74-99); Magnesium 2.2 mg/dL (1.6-2.3); Non-African American GFR(CKD) >90 (>60 ml/min/1.73 sqM); Sodium 136 mmol/L (137-145); Total Bilirubin 0.6 mg/dL (0.2-1.3); Total Protein 6.8 g/dL (6.3-8.2)
[2019-11-06 04:47] LABS: Potassium 4.4 mmol/L (3.5-5.1)
[2019-11-06 04:59] LABS: INR 0.9 (<1.2); Partial Thromboplastin Time 23.9 sec (22.0-30.0); Prothrombin Time 9.4 sec (9.0-12.0)
--- NOTE | 2019-11-06 05:21 | XR ---
EXAMINATION TYPE: XR chest 2V DATE OF EXAM: 11/06/2019 COMPARISON: 09/27/2019 HISTORY: Short of breath TECHNIQUE: 2 views. FINDINGS: There is some atelectasis at the lung bases. There is no heart failure. Heart size is normal. There are chest leads. There is poor inspiration. IMPRESSION: There is atelectasis at the lung bases similar to old exam. No heart failure.
[2019-11-06] MEDS ORDERED: HEPARIN SODIUM,PORCINE 5,000 UNIT/ML 1 ML VIAL IV PRN (05:37)
[2019-11-06] MEDS ORDERED: HEPARIN SODIUM,PORCINE 5,000 UNIT/ML 1 ML VIAL IV ONE (05:37)
[2019-11-06] MEDS ORDERED: HEPARIN SOD,PORK IN 0.45% NACL 25,000 UNIT in 0.45% NACL 1 250ML.BAG IV SCH (05:45)
[2019-11-06] MEDS ORDERED: NALOXONE 0.4 MG/ML 1 ML VIAL IV PRN (05:54)
[2019-11-06] MEDS ORDERED: NITROGLYCERIN SL TABS 0.4 MG TAB SUBLINGUAL PRN (09:45)
[2019-11-06] MEDS ORDERED: METOPROLOL TARTRATE 25 MG TAB PO SCH (10:00)
[2019-11-06] MEDS: NICOTINE 14MG/24HR PATCH TRANSDERM SCH (10:23)
[2019-11-06] MEDS: ALPRAZolam 0.25 MG TAB PO PRN ×2 (10:23→20:56)
--- NOTE | 2019-11-06 10:39 | P.CRDCN ---
History of Present Illness Consult date: 11/06/19 Requesting physician: Celestina Xavier Consult reason: atrial fibrillation Chief complaint: Sudden onset of shortness of breath History of present illness: This is a 69-year-old gentleman with history of smoking, COPD, sleep apnea, has not yet received his breathing machine, he also has a history of coronary artery disease with prior angioplasty and stenting of the right coronary artery in September of this year. He presents to the hospital with symptoms of fairly sudden onset of shortness of breath, to the point where the patient states he can hardly breathe. He states that he will be sitting, all of a sudden have to gasp for air because he can't breathe. He is very afraid to fall asleep which he does frequently through the day because he states as soon as he falls asleep that he wakes up unable to breathe. For these reasons she came to the hospital for further evaluation and treatment. Chest x-ray shows atelectasis at the lung bases. EKG on admission showed atrial fibrillation with a controlled ventricular response. According to the patient, he had never been told in the past to have any atrial fibrillation. Blood pressure 128/70 with a heart rate in the 80s to 90s. Afebrile. White blood cell count is normal, hemoglobin 15.2, platelet count 319. Sodium 136, potassium 4.4, BUN 20, creatinine 0.8. Magnesium 2.2. Troponin is negative. Upon review of the marie ent's rhythm strips, he continues to be in atrial fibrillation, he is having episodes of pauses during periods of daytime sleep, likely secondary to sleep apnea. Positives are 3 seconds or greater. Past Medical History Past Medical History: COPD, CVA/TIA, GERD/Reflux, Hyperlipidemia, Hypertension, Osteoarthritis (OA), Pneumonia, Sleep Apnea/CPAP/BIPAP, Vascular Disorder Additional Past Medical History / Comment(s): Pt recently admitted to [facility] on 09/25/19 with NSTEMI/urinary retention with law/generalized lower abdominal pain thought to possibly be mild colitis, R pulmonary consolidation, possible R hip tissue cellulitis. 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, PVD, chronic low back pain/DDD/scoliosis, cervical pain, bilateral hip pain,chronic lower extremity edema, sinus issues, hiatal hernia, PVD History of Any Multi-Drug Resistant Organisms: None Reported Past Surgical History: Adenoidectomy, Cholecystectomy, Orthopedic Surgery, Tonsillectomy Additional Past Surgical History / Comment(s): 09/26/19 PCI with 2 stents, 2010 L leg surgery and pt thinks he has a loly, R radial head fracture with surgery x2, deviated septum surgery, EGD, colonoscopy, rectal fissure repair, hemorrhoidectomy Past Anesthesia/Blood Transfusion Reactions: No Reported Reaction, Motion Sickness Additional Past Anesthesia/Blood Transfusion Reaction / Comment(s): vertigo Past Psychological History: Anxiety, Depression, PTSD Smoking Status: Current every day smoker Past Alcohol Use History: None Reported Past Drug Use History: None Reported - Past Family History Father Additional Family Medical History / Comment(s): father in airplane crash when in [place]. pt only knows that alcoholism ran in his family Brother Family Medical History: Cancer Additional Family Medical History / Comment(s): Pancreatic Cancer Mother History Unknown: Yes Family Medical History: Diabetes Mellitus Additional Family Medical History / Comment(s): Mother would not talk about her health. Medications and Allergies Home Medications Medication Instructions Recorded Confirmed Type Fluticasone/Salmeterol [Advair 1 puff INHALATION RT-BID 06/08/15 11/06/19 History 250-50 Diskus] Fluticasone Nasal [place] [Flonase 2 spr EA NOSTRIL DAILY PRN 09/27/17 11/06/19 History Nasal [place]] guaiFENesin SYRUP 100MG/5ML 200 mg PO Q6H PRN 09/27/17 11/06/19 History [Robitussin] Naproxen Sodium [Aleve] 220 mg PO BID PRN 09/25/19 11/06/19 History Aspirin 81 mg PO DAILY #30 chew 09/29/19 11/06/19 Rx Atorvastatin [Lipitor] 80 mg PO HS #30 tab 09/29/19 11/06/19 Rx Ipratropium/Albuterol Sulfate 1 puff INHALATION RT-QID PRN #1 inh 09/29/19 11/06/19 Rx [Combivent Respimat Inhaler] Losartan [Cozaar] 100 mg PO DAILY #60 tab 09/29/19 11/06/19 Rx Metoprolol Tartrate [Lopressor] 12.5 mg PO BID #60 tab 09/29/19 11/06/19 Rx Nicotine 21Mg/24Hr Patch [Habitrol] 1 patch TRANSDERM DAILY #30 patch 09/29/19 11/06/19 Rx Nitroglycerin Sl Tabs [Nitrostat] 0.4 mg SUBLINGUAL Q5M PRN #20 tab 09/29/19 11/06/19 Rx Pantoprazole [Protonix] 40 mg PO AC-BRKFST #15 tablet. 09/29/19 11/06/19 Rx Ticagrelor [Brilinta] 90 mg PO BID #60 tab 09/29/19 11/06/19 Rx amLODIPine [Norvasc] 5 mg PO DAILY@1999 #30 tab 09/29/19 11/06/19 Rx Allergies Allergy/AdvReac Type Severity Reaction Status Date / Time No Known Allergies Allergy Verified 10/05/19 10:21 Physical Exam Vitals: Vital Signs Temp Pulse Pulse Resp BP BP Pulse Ox 11/06/19 08:30 98.1 F 100 20 129/79 97 11/06/19 06:44 18 124/91 96 11/06/19 06:03 96 19 114/66 97 11/06/19 05:00 85 18 123/50 97 11/06/19 04:30 90 18 142/72 96 11/06/19 03:55 98.7 F 89 18 122/81 96 Intake and Output 11/05/19 11/06/19 11/06/19 22:59 06:59 14:59 Other: Weight 95.708 kg PHYSICAL EXAMINATION: GENERAL: 69-year-old gentleman in no acute distress at the time of my examination HEENT: Head is atraumatic, normocephalic. Pupils equal, round. Sclera anicteric. Conjunctiva are clear. Mucous membranes of the mouth are moist. Neck is supple. There is no elevated jugular venous pressure. No carotid bruit is heard. HEART EXAMINATION: Heart S1, S2 normal. No murmur or gallop heard. CHEST EXAMINATION: Lungs reveal mild wheezing throughout . No chest wall tenderness is noted on palpation or with deep breathing. ABDOMEN: Soft, nontender. Bowel sounds are heard. No organomegaly noted. EXTREMITIES: 2+ peripheral pulses with no evidence of peripheral edema and no calf tenderness noted. NEUROLOGIC patient is awake, alert and oriented 3 . . Results 11/06/19 04:13 11/06/19 04:13 Cardiac Enzymes 11/06/19 11/06/19 Range/Units 04:13 04:13 AST 29 (17-59) U/L Troponin I <0.012 (0.000-0.034) ng/mL Coagulation 11/06/19 Range/Units 04:13 PT 9.4 (9.0-12.0) sec APTT 23.9 (22.0-30.0) sec CBC 11/06/19 Range/Units 04:13 WBC 10.3 (3.8-10.6) k/uL RBC 5.03 (4.30-5.90) m/uL Hgb 15.2 (13.0-17.5) gm/dL Hct 46.2 (39.0-53.0) % Plt Count 309 (150-450) k/uL Comprehensive Metabolic Panel 11/06/19 Range/Units 04:13 Sodium 136 L (137-145) mmol/L Potassium 4.4 (3.5-5.1) mmol/L Chloride 103 (98-107) mmol/L Carbon Dioxide 25 (22-30) mmol/L BUN 20 (9-20) mg/dL Creatinine 0.80 (0.66-1.25) mg/dL Glucose 109 H (74-99) mg/dL Calcium 9.3 (8.4-10.2) mg/dL AST 29 (17-59) U/L ALT 27 (4-49) U/L Alkaline Phosphatase 147 H (38-126) U/L Total Protein 6.8 (6.3-8.2) g/dL Albumin 3.9 (3.5-5.0) g/dL Current Medications Generic Name Dose Route Start Last Admin Trade Name Freq PRN Reason Stop Dose Admin Albuterol/Ipratropium 3 ml 11/06/19 09:45 Duoneb 0.5 Mg-3 Mg/3 Ml Soln INHALATION RT-QID PRN Shortness Of Breath Alprazolam 0.25 mg 11/06/19 09:47 11/06/19 10:23 Xanax PO 0.25 mg TID PRN Administration Anxiety Aspirin 81 mg 11/07/19 09:00 Aspirin PO DAILY DEIDRE Atorvastatin Calcium 80 mg 11/06/19 21:00 Lipitor PO HS [facility] Budesonide/Formoterol Fumarate 2 puff 11/06/19 20:00 Symbicort 80-4.5 Mcg Inhaler INHALATION RT-BID [facility] Heparin Sodium (Porcine) 0 unit 11/06/19 05:37 Heparin IV PER PROTOCOL PRN Low PTT Protocol Heparin Sodium/Sodium Chloride 250 mls @ 10.001 mls/hr 11/06/19 05:45 11/06/19 06:00 25,000 unit/ Sodium Chloride IV 10.45 units/kg/hr .Q24H DEIDRE 10.001 mls/hr Administration Protocol 10.45 UNITS/KG/HR Losartan Potassium 100 mg 11/07/19 09:00 Cozaar PO DAILY [facility] Metoprolol Tartrate 25 mg 11/06/19 10:00 Lopressor PO BID [facility] Naloxone HCl 0.2 mg 11/06/19 05:54 Narcan IV Q2M PRN Opioid Reversal Nicotine 1 patch 11/06/19 10:00 11/06/19 10:23 Habitrol 14mg/24hr Patch TRANSDERM 1 patch DAILY [facility] Administration Nitroglycerin 0.4 mg 11/06/19 09:45 Nitrostat SUBLINGUAL Q5M PRN Chest Pain Pantoprazole Sodium 40 mg 11/07/19 07:30 Protonix PO AC-BRKFST [facility] Ticagrelor 90 mg 11/06/19 21:00 Brilinta PO BID [facility] Intake and Output 11/05/19 11/06/19 11/06/19 22:59 06:59 14:59 Other: Weight 95.708 kg 11/06/19 04:13 11/06/19 04:13 EKG Interpretations (text) EKG shows atrial fibrillation with a controlled ventricular response Assessment and Plan Plan: Assessment and plan #1 symptoms of fairly sudden onset of shortness of breath, could be secondary to pauses from sleep apnea, could also be secondary to atrial fibrillation. #2 COPD #3 sleep apnea, patient not currently on a CPAP, he is waiting to start on CPAP #4 coronary artery disease with RCA stenting in September of this year #5 hypertension #6 hyperlipidemia #7 anxiety #8 nicotine dependence Plan We will obtain an echocardiogram with Doppler study. Patient is having significant pauses during periods of sleep, even daytime sleep, secondary to apnea. He has not at this point yet used his BiPAP at home. The atrial fibrillation does appear to be new, he will require anticoagulation, he is on Brilinta and aspirin at this time. We will consider discontinuing the Brilinta and the aspirin and starting the patient on Plavix along with xarelto. DNP note has been reviewed, I agree with a documented findings and plan of care. Patient was seen and examined.
--- NOTE | 2019-11-06 10:44 | P.HPIM ---
History of Present Illness patient is a 69-year-old male with history of coronary disease and recent stents came in with compensative shortness of breath found to be in atrial fib relation patient does have history of COPD but not observed examination there is no signs or symptoms of infection patient is not dehydrated patient is quite a bit anxious and patient does have sleep apnea and doesn't use CPAP machine yet and patient was having apneic episodes secondary to sleep apnea not nontender not using CPAP machine. Patient is a quite scared as he may stop breathing if he sleeps and he is having apneic episodes and see when he is awake as well. Patient is presently rate controlled and the Cardizem was discontinued and patient is on beta tim at this time cardiology evaluated the patient echo cardiac rhythm is being up and patient had normal ejection fraction the past patient is not in heart failure exacerbation Review of Systems REVIEW OF SYSTEMS: CONSTITUTIONAL: No fever, no malaise, no fatigue. HEENT: No recent visual problems or hearing problems. Denied any sore throat. CARDIOVASCULAR: No chest pain, orthopnea, PND,, no syncope. PULMONARY:as mentioned in HPI GASTROINTESTINAL: No diarrhea, no nausea, no vomiting, no abdominal pain. NEUROLOGICAL: No headaches, no weakness, no numbness. HEMATOLOGICAL: Denies any bleeding or petechiae. GENITOURINARY: Denies any burning micturition, frequency, or urgency. MUSCULOSKELETAL/RHEUMATOLOGICAL: Denies any joint pain, swelling, or any muscle pain. ENDOCRINE: Denies any polyuria or polydipsia. The rest of the 14-point review of systems is negative. Past Medical History Past Medical History: COPD, CVA/TIA, GERD/Reflux, Hyperlipidemia, Hypertension, Osteoarthritis (OA), Pneumonia, Sleep Apnea/CPAP/BIPAP, Vascular Disorder Additional Past Medical History / Comment(s): Pt recently admitted to [facility] on 09/25/19 with NSTEMI/urinary retention with law/generalized lower abdominal rachel n thought to possibly be mild colitis, R pulmonary consolidation, possible R hip tissue cellulitis. 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, PVD, chronic low back pain/DDD/scoliosis, cervical pain, bilateral hip pain,chronic lower extremity edema, sinus issues, hiatal hernia, PVD History of Any Multi-Drug Resistant Organisms: None Reported Past Surgical History: Adenoidectomy, Cholecystectomy, Orthopedic Surgery, Tonsillectomy Additional Past Surgical History / Comment(s): 09/26/19 PCI with 2 stents, 2010 L leg surgery and pt thinks he has a loly, R radial head fracture with surgery x2, deviated septum surgery, EGD, colonoscopy, rectal fissure repair, hemorrhoidectomy Past Anesthesia/Blood Transfusion Reactions: No Reported Reaction, Motion Sickness Additional Past Anesthesia/Blood Transfusion Reaction / Comment(s): vertigo Past Psychological History: Anxiety, Depression, PTSD Smoking Status: Current every day smoker Past Alcohol Use History: None Reported Past Drug Use History: None Reported - Past Family History Father Additional Family Medical History / Comment(s): father in airplane crash when in [place]. pt only knows that alcoholism ran in his family Brother Family Medical History: Cancer Additional Family Medical History / Comment(s): Pancreatic Cancer Mother History Unknown: Yes Family Medical History: Diabetes Mellitus Additional Family Medical History / Comment(s): Mother would not talk about her health. Medications and Allergies Home Medications Medication Instructions Recorded Confirmed Type Fluticasone/Salmeterol [Advair 1 puff INHALATION RT-BID 06/08/15 11/06/19 History 250-50 Diskus] Fluticasone Nasal [place] [Flonase 2 spr EA NOSTRIL DAILY PRN 09/27/17 11/06/19 History Nasal [place]] guaiFENesin SYRUP 100MG/5ML 200 mg PO Q6H PRN 09/27/17 11/06/19 History [Robitussin] Naproxen Sodium [Aleve] 220 mg PO BID PRN 09/25/19 11/06/19 History Aspirin 81 mg PO DAILY #30 chew 09/29/19 11/06/19 Rx Atorvastatin [Lipitor] 80 mg PO HS #30 tab 09/29/19 11/06/19 Rx Ipratropium/Albuterol Sulfate 1 puff INHALATION RT-QID PRN #1 inh 09/29/19 11/06/19 Rx [Combivent Respimat Inhaler] Losartan [Cozaar] 100 mg PO DAILY #60 tab 09/29/19 11/06/19 Rx Metoprolol Tartrate [Lopressor] 12.5 mg PO BID #60 tab 09/29/19 11/06/19 Rx Nicotine 21Mg/24Hr Patch [Habitrol] 1 patch TRANSDERM DAILY #30 patch 09/29/19 11/06/19 Rx Nitroglycerin Sl Tabs [Nitrostat] 0.4 mg SUBLINGUAL Q5M PRN #20 tab 09/29/19 11/06/19 Rx Pantoprazole [Protonix] 40 mg PO AC-BRKFST #15 tablet. 09/29/19 11/06/19 Rx Ticagrelor [Brilinta] 90 mg PO BID #60 tab 09/29/19 11/06/19 Rx amLODIPine [Norvasc] 5 mg PO DAILY@1999 #30 tab 09/29/19 11/06/19 Rx Allergies Allergy/AdvReac Type Severity Reaction Status Date / Time No Known Allergies Allergy Verified 10/05/19 10:21 Physical Exam Vitals: Vital Signs Temp Pulse Pulse Resp BP BP Pulse Ox 11/06/19 08:30 98.1 F 100 20 129/79 97 11/06/19 06:44 18 124/91 96 11/06/19 06:03 96 19 114/66 97 11/06/19 05:00 85 18 123/50 97 11/06/19 04:30 90 18 142/72 96 11/06/19 03:55 98.7 F 89 18 122/81 96 Intake and Output 11/05/19 11/06/19 11/06/19 22:59 06:59 14:59 Other: Weight 95.708 kg PHYSICAL EXAMINATION: GENERAL: The patient is alert and oriented x3, not in any acute distress. Well developed, well nourished. HEENT: Pupils are round and equally reacting to light. EOMI. No scleral icterus. No conjunctival pallor. Normocephalic, atraumatic. No pharyngeal erythema. No thyromegaly. CARDIOVASCULAR: S1 and S2 present. No murmurs, rubs, or gallops. PULMONARY: Chest is clear to auscultation, no wheezing or crackles. ABDOMEN: Soft, nontender, nondistended, normoactive bowel sounds. No palpable organomegaly. MUSCULOSKELETAL: No joint swelling or deformity. EXTREMITIES: No cyanosis, clubbing, or pedal edema. NEUROLOGICAL: Gross neurological examination did not reveal any focal deficits. SKIN: No rashes. Results CBC & Chem 7: 11/06/19 04:13 11/06/19 04:13 Labs: Abnormal Lab Results - Last 24 Hours (Table) 11/06/19 Range/Units 04:13 Sodium 136 L (137-145) mmol/L Glucose 109 H (74-99) mg/dL Alkaline Phosphatase 147 H (38-126) U/L Thrombosis Risk Factor Assmnt - Choose All That Apply Each Factor Represents 1 point: Obesity (BMI >25) Each Risk Factor Represents 2 Points: Age 61-74 years Thrombosis Risk Factor Assessment Total Risk Factor Score: 3 Thrombosis Risk Factor Assessment Level: Moderate Risk Assessment and Plan Plan: -short of breath: Secondary to possible atrial fibrillation apneic episodes patient probably will need anticoagulation patient is already in patient is on dual antiplatelet therapybecause of his recent stent, this surgical antiplatelet therapy. This is being this discontinued patient will be started on Plavix and anticoagulant. Because of apneic episodes patient may not require any rate control medications. -Anxiety: We will use as needed Xanax here but the patient related when has ascites as an outpatient next and-COPD without any exertion -Sleep apnea will need to start using CPAP machine counseling regarding this was provided --Coronary artery disease with recent stent to RCA -Hypertension - hyperlipemia -Anxiety disorder -Nicotine dependence: Recently quit smoking since about couple weeks ago patient has a nicotine patch
[2019-11-06] MEDS ORDERED: RIVAROXABAN 15 MG TAB PO STA (13:20)
[2019-11-06] MEDS: IPRATROPIUM-ALBUTEROL 3 ML NEB INHALATION PRN ×2 (14:57→21:33)
[2019-11-06] MEDS: ATORVASTATIN 80 MG TAB PO SCH (20:53)
[2019-11-06] MEDS ORDERED: TICAGRELOR 90 MG TAB PO SCH (21:00)
[2019-11-06] MEDS: SYMBICORT 80-4.5 MCG INHALER INHALATION SCH (21:33)
[2019-11-07] MEDS: PANTOPRAZOLE 40 MG TABLET PO SCH (06:17)
[2019-11-07 06:49] LABS: Basophils % (A) 0 %; Eosinophils # (A) 0.1 k/uL (0-0.7); Eosinophils % (A) 2 %; HCT 41.6 % (39.0-53.0); HGB 13.4 gm/dL (13.0-17.5); Lymphocytes # (A) 2.4 k/uL (1.0-4.8); Lymphocytes % (A) 32 %; MCH 29.8 pg (25.0-35.0); MCHC 32.2 g/dL (31.0-37.0); MCV 92.7 fL (80.0-100.0); Monocytes # (A) 0.5 k/uL (0-1.0); Monocytes % (A) 7 %; Neutrophils # (A) 4.3 k/uL (1.3-7.7); Neutrophils % (A) 56 %; Platelet Count 285 k/uL (150-450); RBC 4.49 m/uL (4.30-5.90); RDW 13.9 % (11.5-15.5); WBC 7.6 k/uL (3.8-10.6)
[2019-11-07 07:08] LABS: Calcium 8.8 mg/dL (8.4-10.2); Potassium 5.2 mmol/L (3.5-5.1)
[2019-11-07] MEDS: SYMBICORT 80-4.5 MCG INHALER INHALATION SCH ×2 (08:13→20:23)
[2019-11-07] MEDS: IPRATROPIUM-ALBUTEROL 3 ML NEB INHALATION PRN ×3 (08:13→20:25)
[2019-11-07] MEDS: LOSARTAN 50 MG TAB PO SCH (08:45)
[2019-11-07] MEDS: CLOPIDOGREL 75 MG TAB PO SCH (08:45)
[2019-11-07] MEDS: RIVAROXABAN 15 MG TAB PO SCH (08:45)
[2019-11-07] MEDS: ASPIRIN 81 MG PO SCH (08:45)
[2019-11-07] MEDS: NICOTINE 14MG/24HR PATCH TRANSDERM SCH (08:45)
[2019-11-07] MEDS: ALPRAZolam 0.25 MG TAB PO PRN (09:16)
--- NOTE | 2019-11-07 10:01 | ECHOF ---
Referral Reason:afib MEASUREMENTS -------- HEIGHT: 165.1 cm WEIGHT: 92.5 kg BP: 136/67 IVSd: 1.1 cm (0.6 - 1.1) LVIDd: 4.1 cm (3.9 - 5.3) LVPWd: 1.1 cm (0.6 - 1.1) IVSs: 1.5 cm LVIDs: 2.5 cm LVPWs: 1.6 cm LA Diam: 3.1 cm (2.7 - 3.8) RVIDd: 4.0 cm (< 3.3) LAESV Index (A-L): 21.36 ml/m Ao Diam: 2.6 cm (2.0 - 3.7) LA Diam: 4.1 cm (2.7 - 3.8) AV Cusp: 1.8 cm (1.5 - 2.6) EPSS: 0.6 cm MV E Grayson: 0.30 m/s MV DecT: 363 ms MV A Grayson: 0.51 m/s MV E/A Ratio: 0.58 RAP: 5.00 mmHg RVSP: 14.63 mmHg MV EF SLOPE: 79.49 mm/s (70 - 150) MV EXCURSION: 14.58 mm (> 18.000) FINDINGS -------- Sinus rhythm. This was a technically adequate study. The left ventricular size is normal. Overall left ventricular systolic function is low-normal with, an EF between 50 - 55 %. The right ventricle is mild to moderately enlarged. The left atrial size is normal. The right atrial size is normal. There is mild aortic valve sclerosis. There is no evidence of aortic regurgitation. Mild mitral annular calcification present. Mild mitral regurgitation is present. Mild tricuspid regurgitation present. Right ventricular systolic pressure is normal at < 35 mmHg. There is no evidence of pulmonary hypertension. There is no pulmonic regurgitation present. The aortic root size is normal. There is no pericardial effusion. CONCLUSIONS -------- 1. Sinus rhythm. 2. This was a technically adequate study. 3. The left ventricular size is normal. 4. Overall left ventricular systolic function is low-normal with, an EF between 50 - 55 %. 5. The right ventricle is mild to moderately enlarged. 6. The left atrial size is normal. 7. The right atrial size is normal. 8. There is mild aortic valve sclerosis. 9. Mild mitral annular calcification present. 10. Mild mitral regurgitation is present. 11. Mild tricuspid regurgitation present. 12. Right ventricular systolic pressure is normal at < 35 mmHg. 13. There is no evidence of pulmonary hypertension. 14. There is no pulmonic regurgitation present. 15. The aortic root size is normal. 16. There is no pericardial effusion. ANODE MACHINE OPERATOR: Suzie William RDCS
--- NOTE | 2019-11-07 11:22 | P.PN ---
Subjective Progress Note Date: 11/07/19 Principal diagnosis: Patient is a 69-year-old male with history of coronary disease and recent stents came in with compensative shortness of breath found to be in atrial fib relation patient does have history of COPD but not observed examination there is no signs or symptoms of infection patient is not dehydrated patient is quite a bit anxious and patient does have sleep apnea and doesn't use CPAP machine yet and patient was having apneic episodes secondary to sleep apnea not nontender not using CPAP machine. Patient is a quite scared as he may stop breathing if he sleeps and he is having apneic episodes and see when he is awake as well. Patient is presently rate controlled and the Cardizem was discontinued and patient is on beta tim at this time cardiology evaluated the patient echo cardiac rhythm is being up and patient had normal ejection fraction the past pa tient is not in heart failure exacerbation 11/07/2019 Patient is seen and evaluated in follow-up today on the selective unit and continues to be quite anxious and upset about his care and feels that his questions are not being answered. Patient continues to be irate with staff and making multiple comments about not properly being treated. Discussed with the patient at length about medications for atrial fibrillation and that he has been on them since his stenting in September including metoprolol. Patient states he was unaware that he was on those types of medications. Patient continues to have pauses during rest and has been instructed multiple times to wear the BiPAP. Patient underwent an echo today and is currently pending. Cardiology is following. No reports of worsening shortness of breath, palpitations, or chest pain today. Patient is afebrile. No reports of nausea or vomiting and patient is tolerating diet. Objective - Vital Signs Vital signs: Vital Signs Temp 97.3 F L 11/07/19 03:56 Pulse 88 11/07/19 08:27 Resp 18 11/07/19 08:00 BP 131/64 11/07/19 08:00 Pulse Ox 93 L 11/07/19 08:00 Intake & Output 11/06/19 11/07/19 11/07/19 18:59 06:59 18:59 Intake Total 156.508 0 200 Output Total 600 Balance -443.492 0 200 Weight 92.9 kg Intake: IV 80 Heparin Sod,Pork in 0.45% 80 NaCl 25,000 unit In 0.45 % NaCl 1 250ml.bag @ 10. 45 UNITS/KG/HR 10.001 mls /hr IV .Q24H DEIDRE Rx#: [id number] Intake, IV Titration 76.508 Amount Heparin Sod,Pork in 0.45% 76.508 NaCl 25,000 unit In 0.45 % NaCl 1 250ml.bag @ 10. 45 UNITS/KG/HR 10.001 mls /hr IV .Q24H DEIDRE Rx#: [id number] Oral 0 200 Output: Urine 600 Other: Voiding Method Toilet Urinal # Voids 1 1 1 # Bowel Movements 1 1 - Exam GENERAL: The patient is alert and oriented x3, anxious, not in any acute distress. Well developed, well nourished. HEENT: Pupils are round and equally reacting to light. EOMI. No scleral icterus. No conjunctival pallor. Normocephalic, atraumatic. No pharyngeal erythema. No thyromegaly. CARDIOVASCULAR: S1 and S2 present. No murmurs, rubs, or gallops. PULMONARY: Chest is clear to auscultation, no wheezing or crackles. ABDOMEN: Soft, nontender, nondistended, normoactive bowel sounds. No palpable organomegaly. MUSCULOSKELETAL: No joint swelling or deformity. EXTREMITIES: No cyanosis, clubbing, or pedal edema. NEUROLOGICAL: Gross neurological examination did not reveal any focal deficits. SKIN: No rashes. - Labs CBC & Chem 7: 11/07/19 06:15 11/07/19 06:15 Labs: Abnormal Lab Results - Last 24 Hours (Table) 11/07/19 Range/Units 06:15 Potassium 5.2 H (3.5-5.1) mmol/L Glucose 103 H (74-99) mg/dL Assessment and Plan Assessment: -short of breath: Secondary to possible atrial fibrillation apneic episodes. Patient is currently on aspirin low-dose along with Plavix and is being started on Xarelto -Anxiety: We will continue with Xanax as needed here -COPD without any acute exacerbation -Sleep apnea will need to start using CPAP machine counseling regarding this was provided, patient instructed to use BiPAP while napping and at rest while hospitalized -Coronary artery disease with recent stent to RCA -Hypertension -hyperlipemia -Anxiety disorder -Nicotine dependence: Recently quit smoking since about couple weeks ago patient has a nicotine patch Plan: Continue current medications, management, and symptomatic treatment. Patient underwent an echo today showing overall left ventricular systolic function is low to normal with an EF between 50 and 55% with some mild mitral and tricuspid regurgitation present. Cardiology is following. Discussed with the patient at length about continuing to use the BiPAP while at rest and at night. Had a laisha thy discussion with the patient about medications and patient continues to be very anxious and angry about his care and treatment. Case management will be consulted to assist patient with possible CPAP needs and adjustments once discharged. Patient being started on Xarelto. Further recommendations to follow.
--- NOTE | 2019-11-07 12:55 | P.PN ---
Subjective Progress Note Date: 11/07/19 Principal diagnosis: This is a very pleasant 69-year-old gentleman was coronary artery disease and prior stenting of the RCA, hypertension, dyslipidemia, and obstructive sleep apnea, was admitted to the hospital with symptoms of shortness of breath and he was found to have episodes of sinus pauses associated with sleep apnea. Also he was found to have atrial fibrillation which was new to him. He was seen today, 11/07/2019. He has been maintaining normal sinus mechanism. Since he has been using the BiPAP machine, no more episodes of sinus pauses. He does have a CPAP machine at home but he was told that the CPAP need to be adjusted and he has an appointment with his technical support technician this coming Thursday. We are holding beta tim right now in view of the multiple episodes of sinus pauses. He is on oral anticoagulation. Objective - Vital Signs Vital signs: Vital Signs Temp 97.3 F L 11/07/19 03:56 Pulse 84 11/07/19 11:40 Resp 18 11/07/19 08:00 BP 131/64 11/07/19 08:00 Pulse Ox 93 L 11/07/19 08:00 Intake & Output 11/06/19 11/07/19 11/07/19 18:59 06:59 18:59 Intake Total 156.508 0 200 Output Total 600 Balance -443.492 0 200 Weight 92.9 kg Intake: IV 80 Heparin Sod,Pork in 0.45% 80 NaCl 25,000 unit In 0.45 % NaCl 1 250ml.bag @ 10. 45 UNITS/KG/HR 10.001 mls /hr IV .Q24H DEIDRE Rx#: [id number] Intake, IV Titration 76.508 Amount Heparin Sod,Pork in 0.45% 76.508 NaCl 25,000 unit In 0.45 % NaCl 1 250ml.bag @ 10. 45 UNITS/KG/HR 10.001 mls /hr IV .Q24H DEIDRE Rx#: [id number] Oral 0 200 Output: Urine 600 Other: Voiding Method Toilet Urinal # Voids 1 1 1 # Bowel Movements 1 1 - Constitutional General appearance: Present: no acute distress - Respiratory Respiratory: bilateral: CTA - Cardiovascular Rhythm: regular Heart sounds: normal: S1, S2 - Labs CBC & Chem 7: 11/07/19 06:15 11/07/19 06:15 Labs: Abnormal Lab Results - Last 24 Hours (Table) 11/07/19 Range/Units 06:15 Potassium 5.2 H (3.5-5.1) mmol/L Glucose 103 H (74-99) mg/dL Assessment and Plan Assessment: Assessment #1 multiple episodes of sinus pauses #2 sleep apnea was not treated #3 paroxysmal atrial fibrillation #4 coronary artery disease #5 multiple comorbid conditions Plan #1 continue the current medical regimen #2 continue holding the beta tim #3 the echo was reviewed and showed normal LV function #4 continue using the CPAP machine #5 monitor the patient for additional 24 hours
[2019-11-07] MEDS: ATORVASTATIN 80 MG TAB PO SCH (20:09)
[2019-11-08] MEDS ORDERED: guaiFENesin SYRUP 100MG/5ML 200 MG/10 ML CUP PO PRN (00:22)
[2019-11-08 06:11] LABS: Basophils % (A) 1 %; Eosinophils # (A) 0.2 k/uL (0-0.7); Eosinophils % (A) 2 %; HGB 12.4 gm/dL (13.0-17.5); Lymphocytes # (A) 2.6 k/uL (1.0-4.8); Lymphocytes % (A) 35 %; MCH 29.6 pg (25.0-35.0); MCHC 31.8 g/dL (31.0-37.0); Mean Platelet Volume 7.1; Monocytes # (A) 0.6 k/uL (0-1.0); Monocytes % (A) 8 %; Neutrophils # (A) 3.8 k/uL (1.3-7.7); Neutrophils % (A) 52 %; Platelet Count 265 k/uL (150-450); WBC 7.4 k/uL (3.8-10.6)
[2019-11-08] MEDS: PANTOPRAZOLE 40 MG TABLET PO SCH (06:16)
[2019-11-08 06:18] LABS: INR 0.9 (<1.2); Prothrombin Time 9.8 sec (9.0-12.0)
[2019-11-08 08:44] LABS: Albumin 3.2 g/dL (3.5-5.0); Calcium 8.8 mg/dL (8.4-10.2); Potassium 4.9 mmol/L (3.5-5.1); Total Bilirubin 0.3 mg/dL (0.2-1.3); Total Protein 5.6 g/dL (6.3-8.2)
[2019-11-08] MEDS: IPRATROPIUM-ALBUTEROL 3 ML NEB INHALATION PRN ×2 (08:57→12:04)
[2019-11-08] MEDS: SYMBICORT 80-4.5 MCG INHALER INHALATION SCH (09:05)
[2019-11-08] MEDS: CLOPIDOGREL 75 MG TAB PO SCH (09:12)
[2019-11-08] MEDS: ASPIRIN 81 MG PO SCH (09:12)
[2019-11-08] MEDS: LOSARTAN 50 MG TAB PO SCH (09:12)
[2019-11-08] MEDS: RIVAROXABAN 15 MG TAB PO SCH (09:12)
[2019-11-08] MEDS: NICOTINE 14MG/24HR PATCH TRANSDERM SCH (09:13)
[2019-11-08 09:50] VITALS: BP 131/69; RESP 20; TEMP 97.5
[2019-11-08 12:12] VITALS: PULSE 76
--- NOTE | 2019-11-08 13:35 | P.PN ---
Subjective Progress Note Date: 11/08/19 This is a 69-year-old gentleman with history of smoking, COPD, sleep apnea, has not yet received his breathing machine, he also has a history of coronary artery disease with prior angioplasty and stenting of the right coronary artery in September of this year. He presents to the hospital with sym ptoms of fairly sudden onset of shortness of breath, to the point where the patient states he can hardly breathe. He states that he will be sitting, all of a sudden have to gasp for air because he can't breathe. He is very afraid to fall asleep which he does frequently through the day because he states as soon as he falls asleep that he wakes up unable to breathe. For these reasons she came to the hospital for further evaluation and treatment. Chest x-ray shows atelectasis at the lung bases. EKG on admission showed atrial fibrillation with a controlled ventricular response. According to the patient, he had never been told in the past to have any atrial fibrillation. Blood pressure 128/70 with a heart rate in the 80s to 90s. Afebrile. White blood cell count is normal, hemoglobin 15.2, platelet count 319. Sodium 136, potassium 4.4, BUN 20, creatinine 0.8. Magnesium 2.2. Troponin is negative. Upon review of the patient's rhythm strips, he continues to be in atrial fibrillation, he is having episodes of pauses during periods of daytime sleep, likely secondary to sleep apnea. Positives are 3 seconds or greater. 11/08/2019 Patient is remaining in a normal sinus rhythm, no more sinus pauses have been noted on the monitor. We will continue to hold the beta tim. From our perspective he may be able to be discharged home today. He has a follow-up appointment with the food and beverage service manager on Thursday which she's been instructed to keep. Objective - Vital Signs Vital signs: Vital Signs Temp 97.5 F L 11/08/19 08:00 Pulse 76 11/08/19 12:12 Resp 20 11/08/19 08:00 BP 131/69 11/08/19 08:00 Pulse Ox 91 L 11/08/19 08:00 Intake & Output 11/07/19 11/08/19 11/08/19 18:59 06:59 18:59 Intake Total 580 1020 360 Output Total 1400 Balance -820 1020 360 Weight 93 kg Intake: Oral 580 1020 360 Output: Urine 1400 Other: Voiding Method Toilet Urinal # Voids 2 0 - Exam PHYSICAL EXAMINATION: GENERAL: 69-year-old gentleman in no acute distress at the time of my examination HEENT: Head is atraumatic, normocephalic. Pupils equal, round. Sclera anicteric. Conjunctiva are clear. Mucous membranes of the mouth are moist. Neck is supple. There is no elevated jugular venous pressure. No carotid bruit is heard. HEART EXAMINATION: Heart S1, S2 normal. No murmur or gallop heard. CHEST EXAMINATION: Lungs reveal mild wheezing throughout . No chest wall tenderness is noted on palpation or with deep breathing. ABDOMEN: Soft, nontender. Bowel sounds are heard. No organomegaly noted. EXTREMITIES: 2+ peripheral pulses with no evidence of peripheral edema and no calf tenderness noted. NEUROLOGIC patient is awake, alert and oriented 3 . - Labs CBC & Chem 7: 11/08/19 05:29 11/08/19 05:28 Labs: Abnormal Lab Results - Last 24 Hours (Table) 11/08/19 11/08/19 Range/Units 05:28 05:29 RBC 4.20 L (4.30-5.90) m/uL Hgb 12.4 L (13.0-17.5) gm/dL Total Protein 5.6 L (6.3-8.2) g/dL Albumin 3.2 L (3.5-5.0) g/dL Assessment and Plan Plan: Assessment and plan #1 symptoms of fairly sudden onset of shortness of breath, could be secondary to pauses from sleep apnea, could also be secondary to atrial fibrillation. #2 COPD #3 sleep apnea, patient not currently on a CPAP, he is waiting to start on CPAP #4 coronary artery disease with RCA stenting in September of this year #5 hypertension #6 hyperlipidemia #7 anxiety #8 nicotine dependence Plan He may be able to be discharged home today from cardiology's perspective, we will continue him on Plavix along with anticoagulation. No aspirin. Follow-up appointment will be made in the office. DNP note has been reviewed, I agree with a documented findings and plan of care. Patient was seen and examined.
--- NOTE | 2019-11-08 14:52 | P.DS ---
Providers Date of admission: 11/06/19 05:54 Expected date of discharge: 11/08/19 Attending physician: Celestina Xavier Consults: 11/06/19 05:55 Consult Physician Urgent Consulting Provider: Bill Guajardo Consult Reason/Comments: new onset afib Do you want consulting provider notified?: Already Contacted Primary care physician: Ana Luisa Srinivasan [facility] Course: Final diagnosis -shortness of breath: Secondary to possible atrial fibrillation apneic episodes -Anxiety -COPD without any acute exacerbation -Sleep apnea will need to start using CPAP machine counseling regarding this was provided -Coronary artery disease with recent stent to RCA -Hypertension -hyperlipemia -Anxiety disorder -Nicotine dependence: Recently quit smoking since about couple weeks ago patient has a nicotine patch Discharge disposition Patient is being discharged in a stable condition with guarded prognosis to home and will follow-up with Dr. Orosco upon discharge. Patient will also follow-up with cardiology in the outpatient setting. Patient has an appointment with Dr. Phelps this Thursday and instructed to keep the appointment to discuss CPAP use at home. Patient will continue on Xarelto along with Plavix in the outpatient setting upon discharge. Total time taken is 35 minutes. History of present illness Patient is a 69-year-old male with history of coronary disease and recent stents came in with compensative shortness of breath found to be in atrial fib relation patient does have history of COPD but not observed examination there is no signs or symptoms of infection patient is not dehydrated patient is quite a bit anxious and patient does have sleep apnea and doesn't use CPAP machine yet and patient was having apneic episodes secondary to sleep apnea not nontender not using CPAP machine. Patient is a quite scared as he may stop breathing if he sleeps and he is having apneic episodes and see when he is awake as well. Patient is presently rate controlled and the Cardizem was discontinued and patient is on beta tim at this time cardiology evaluated the patient echo cardiac rhythm is being up and patient had normal ejection fraction the past patient is not in heart failure exacerbation 11/07/2019 Patient is seen and evaluated in follow-up today on the selective unit and continues to be quite anxious and upset about his care and feels that his questions are not being answered. Patient continues to be irate with staff and making multiple comments about not properly being treated. Discussed with the patient at length about medications for atrial fibrillation and that he has been on them since his stenting in September including metoprolol. Patient states he was unaware that he was on those types of medications. Patient continues to have pauses during rest and has been instructed multiple times to wear the BiPAP. Patient underwent an echo today and is currently pending. Cardiology is following. No reports of worsening shortness of breath, palpitations, or chest pain today. Patient is afebrile. No reports of nausea or vomiting and patient is tolerating diet. 11/08/2019 Patient remains in normal sinus and has had no repeated pauses noted on cardiac monitoring overnight. Beta tim is currently on hold and will continue to hold until follow-up with primary care provider and cardiology in the outpatient setting. Patient has been started on Xarelto and will continue Plavix in the outpatient setting. Patient will also continue on Cozaar and will discontinue aspirin upon discharge. Patient has an appointment with Dr. Phelps this Thursday and instructed to keep this appointment. Patient also encouraged to continue using the CPAP machine at home. Currently no reports of chest pain, palpitations, or worsening shortness of breath. Patient is afebrile. No reports of nausea or vomiting and patient is tolerating diet. Currently patient's condition is stable for discharge today and will be going home today. On exam vital signs are stable. Temp is 97.5F, pulse is 84, respirations are 20, blood pressure is 131/69, oxygen saturation is 91% on room air. Cardio S1, S2 are present. Respiratory system shows diminished breath sounds with no wheezing or rhonchi noted. Abdomen is soft and nontender. Nervous system shows no focal deficits. Please refer to medication reconciliation sheet for a list of medications. Patient Condition at Discharge: Stable Plan - Discharge Summary Discharge Rx Participant: No New Discharge Prescriptions: New Clopidogrel [Plavix] 75 mg PO DAILY 30 Days #30 tab Rivaroxaban [Xarelto] 15 mg PO DAILY 30 Days #30 tab Continue Fluticasone/Salmeterol [Advair 250-50 Diskus] 1 puff INHALATION RT-BID Fluticasone Nasal [place] [Flonase Nasal [place]] 2 spr EA NOSTRIL DAILY PRN PRN Reason: Allergy Symptoms guaiFENesin SYRUP 100MG/5ML [Robitussin] 200 mg PO Q6H PRN PRN Reason: Cough Naproxen Sodium [Aleve] 220 mg PO BID PRN PRN Reason: Pain Losartan [Cozaar] 100 mg PO DAILY #60 tab Nicotine 21Mg/24Hr Patch [Habitrol] 1 patch TRANSDERM DAILY #30 patch Atorvastatin [Lipitor] 80 mg PO HS #30 tab Nitroglycerin Sl Tabs [Nitrostat] 0.4 mg SUBLINGUAL Q5M PRN #20 tab PRN Reason: Chest Pain Pantoprazole [Protonix] 40 mg PO AC-BRKFST #15 tablet. Ipratropium/Albuterol Sulfate [Combivent Respimat Inhaler] 1 puff INHALATION RT-QID PRN #1 inh PRN Reason: Shortness Of Breath Discontinued Ticagrelor [Brilinta] 90 mg PO BID #60 tab amLODIPine [Norvasc] 5 mg PO DAILY@1999 #30 tab Metoprolol Tartrate [Lopressor] 12.5 mg PO BID Discharge Medication List Fluticasone/Salmeterol [Advair 250-50 Diskus] 1 puff INHALATION RT-BID 06/08/15 [History] Fluticasone Nasal [place] [Flonase Nasal [place]] 2 spr EA NOSTRIL DAILY PRN 09/27/17 [History] guaiFENesin SYRUP 100MG/5ML [Robitussin] 200 mg PO Q6H PRN 09/27/17 [History] Naproxen Sodium [Aleve] 220 mg PO BID PRN 09/25/19 [History] Atorvastatin [Lipitor] 80 mg PO HS #30 tab 09/29/19 [Rx] Ipratropium/Albuterol Sulfate [Combivent Respimat Inhaler] 1 puff INHALATION RT- QID PRN #1 inh 09/29/19 [Rx] Losartan [Cozaar] 100 mg PO DAILY #60 tab 09/29/19 [Rx] Nicotine 21Mg/24Hr Patch [Habitrol] 1 patch TRANSDERM DAILY #30 patch 09/29/19 [Rx] Nitroglycerin Sl Tabs [Nitrostat] 0.4 mg SUBLINGUAL Q5M PRN #20 tab 09/29/19 [Rx] Pantoprazole [Protonix] 40 mg PO AC-BRKFST #15 tablet. 09/29/19 [Rx] Clopidogrel [Plavix] 75 mg PO DAILY 30 Days #30 tab 11/08/19 [Rx] Rivaroxaban [Xarelto] 15 mg PO DAILY 30 Days #30 tab 11/08/19 [Rx] Follow up Appointment(s)/Referral(s): Stephania Orosco MD [Primary Care Provider] - 11/14/19 10:00 am (Thursday) Nghia Hawthorne MD [STAFF PHYSICIAN] - 12/02/19 1:15 pm (Thursday) Leana Phelps MD [STAFF PHYSICIAN] - 11/11/19 11:30 am (Thursday -bring CPAP machine with you, cord and mask included) Patient Instructions/Handouts: A-fib (Atrial Fibrillation) (DC), Safe Use of Anticoagulants (DC) Activity/Diet/Wound Care/Special Instructions: Xarelto copay is $3.90 Activity Limited until follow-up Follow-up with pulmonary on Thursday as scheduled Follow-up with cardiology in the outpatient setting Follow-up with primary care provider upon discharge Continue current diet Discharge Disposition: HOME SELF-CARE
== END 2019-11-08 15:20 | disposition home or self-care (01) | DRG 309 ==
LOC: EC 03:51 → 3SCARD 05:54
PROVIDERS: ADMIT Hospitalist; ATTEND Hospitalist
PROC: 5A09457 Assistance with Respiratory Ventilation, 24-96 Consecutive Hours, Continuous Positive Airway Pressure (ICD-10-PCS; principal; 2019-11-06)
DX: I48.0 Paroxysmal atrial fibrillation (principal); J98.11 Atelectasis; R18.8 Other ascites; E78.5 Hyperlipidemia, unspecified; G47.33 Obstructive sleep apnea (adult) (pediatric); I10 Essential (primary) hypertension; I25.10 Atherosclerotic heart disease of native coronary artery without angina pectoris; J44.9 Chronic obstructive pulmonary disease, unspecified; R32 Unspecified urinary incontinence; F43.10 Post-traumatic stress disorder, unspecified; F41.9 Anxiety disorder, unspecified; F32.9 Major depressive disorder, single episode, unspecified; I25.2 Old myocardial infarction; M41.9 Scoliosis, unspecified; G89.29 Other chronic pain; M54.5 Low back pain; M54.2 Cervicalgia; K21.9 Gastro-esophageal reflux disease without esophagitis; K44.9 Diaphragmatic hernia without obstruction or gangrene; K58.9 Irritable bowel syndrome, unspecified; M25.551 Pain in right hip; M25.552 Pain in left hip; R00.1 Bradycardia, unspecified; I73.9 Peripheral vascular disease, unspecified; M19.90 Unspecified osteoarthritis, unspecified site; F17.201 Nicotine dependence, unspecified, in remission; Z71.6 Tobacco abuse counseling; Z79.02 Long term (current) use of antithrombotics/antiplatelets; Z79.82 Long term (current) use of aspirin; Z79.51 Long term (current) use of inhaled steroids; Z79.899 Other long term (current) drug therapy; Z86.73 Personal history of transient ischemic attack (TIA), and cerebral infarction without residual deficits; Z95.5 Presence of coronary angioplasty implant and graft; Z99.89 Dependence on other enabling machines and devices; Z90.49 Acquired absence of other specified parts of digestive tract; Z87.81 Personal history of (healed) traumatic fracture; Z86.19 Personal history of other infectious and parasitic diseases; Z98.890 Other specified postprocedural states; Z81.1 Family history of alcohol abuse and dependence; Z80.0 Family history of malignant neoplasm of digestive organs; Z83.3 Family history of diabetes mellitus
CPT/HCPCS: 36415; 71046; 80048; 80053; 83735; 83880; 84443; 84484; 85025; 85610; 85730; 93005; 93306; 94640; 94660; 94760; 96365; 96366; 96367; 96376; 99285

== ENCOUNTER 2021-10-21 22:03 | Emergency (ER) | payer MEDICARE, OTHER ==
[2021-10-21] MEDS ORDERED: TRANEXAMIC ACID 1,000 MG/10 ML VIAL IRRIGATION ONE (22:34)
[2021-10-21 22:41] VITALS: TEMP 97.9
[2021-10-21 23:44] VITALS: BP 122/75; PULSE 88; RESP 17
--- NOTE | 2021-10-21 23:52 | ED ---
General Adult HPI - General Chief complaint: Wound/Laceration Stated complaint: Tongue Bleeding Time Seen by Provider: 10/21/21 22:20 Source: patient, RN notes reviewed, old records reviewed Mode of arrival: EMS Limitations: no limitations - History of Present Illness Initial comments: This a 71-year-old male who presents emergency Department because his tongue bleeding. Patient states he bit his tongue about 4 hours prior to arrival and it won't stop bleeding. Patient continually is wiping it with a washcloth. Patient denies any other sites of bleeding. Patient states he is on Xarelto. Patient states earlier he felt a little lightheaded and that is why he came to the hospital. Patient denies any chest pain difficulty breathing shortness of breath. Patient has no other complaints at this time. - Related Data Home Medications Medication Instructions Recorded Confirmed Fluticasone/Salmeterol [Advair 1 puff INHALATION RT-BID 06/08/15 10/21/21 250-50 Diskus] Fluticasone Nasal [place] [Flonase 2 spr EA NOSTRIL DAILY PRN 09/27/17 10/21/21 Nasal [place]] Previous Rx's Medication Instructions Recorded Atorvastatin [Lipitor] 80 mg PO HS #30 tab 09/29/19 Ipratropium/Albuterol Sulfate 1 puff INHALATION RT-QID PRN #1 inh 09/29/19 [Combivent Respimat Inhaler] Losartan [Cozaar] 100 mg PO DAILY #60 tab 09/29/19 Nitroglycerin Sl Tabs [Nitrostat] 0.4 mg SUBLINGUAL Q5M PRN #20 tab 09/29/19 Clopidogrel [Plavix] 75 mg PO DAILY 30 Days #30 tab 11/08/19 Rivaroxaban [Xarelto] 15 mg PO DAILY 30 Days #30 tab 11/08/19 Allergies Allergy/AdvReac Type Severity Reaction Status Date / Time No Known Allergies Allergy Verified 10/21/21 23:09 Review of Systems ROS Statement: Those systems with pertinent positive or pertinent negative responses have been documented in the HPI. ROS Other: All systems not noted in ROS Statement are negative. Past Medical History Past Medical History: COPD, CVA/TIA, GERD/Reflux, Hyperlipidemia, Hypertension, Osteoarthritis (OA), Pneumonia, Sleep Apnea/CPAP/BIPAP, Vascular Disorder Additional Past Medical History / Comment(s): Pt recently admitted to [facility] on 09/25/19 with NSTEMI/urinary retention with law/generalized lower abdominal pain thought to possibly be mild colitis, R pulmonary consolidation, possible R hip tissue cellulitis. 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, PVD, chronic low back pain/DDD/scoliosis, cervical pain, bilateral hip pain,chronic lower extremity edema, sinus issues, hiatal hernia, PVD History of Any Multi-Drug Resistant Organisms: None Reported Past Surgical History: Adenoidectomy, Cholecystectomy, Orthopedic Surgery, Tonsillectomy Additional Past Surgical History / Comment(s): 09/26/19 PCI with 2 stents, 2010 L leg surgery and pt thinks he has a loly, R radial head fracture with surgery x2, deviated septum surgery, EGD, colonoscopy, rectal fissure repair, hemorrhoidectomy Past Anesthesia/Blood Transfusion Reactions: No Reported Reaction, Motion Sickness Additional Past Anesthesia/Blood Transfusion Reaction / Comment(s): vertigo Past Psychological History: Anxiety, Depression, PTSD Smoking Status: Former smoker Past Alcohol Use History: None Reported Past Drug Use History: None Reported - Past Family History Father Additional Family Medical History / Comment(s): father in airplane crash when in [place]. pt only knows that alcoholism ran in his family Brother Family Medical History: Cancer Additional Family Medical History / Comment(s): Pancreatic Cancer Mother History Unknown: Yes Family Medical History: Diabetes Mellitus Additional Family Medical History / Comment(s): Mother would not talk about her health. General Exam - General Exam Comments Initial Comments: GENERAL Patient is well-developed and well-nourished. Patient is in mild distress. EYES Patient's pupils are equal and round. Extraocular motion is intact MOUTH Patient has a very superficial laceration on the tongue and it is slightly bleeding. SKIN Unremarkable NEURO The patient is alert and oriented 3 PYSCH Patient has normal interpersonal interactions. MUSCULOSKELETAL All 4 extremities have full range of motion Limitations: no limitations Course Vital Signs 10/21/21 10/21/21 22:20 23:42 Temperature 97.9 F 97.9 F Pulse Rate 80 88 Respiratory 18 17 Rate Blood Pressure 154/84 122/75 O2 Sat by Pulse 94 L 96 Oximetry Medical Decision Making - Medical Decision Making I put here today on a cotton ball and clamped it to his tongue for 15 minutes I removed it and it was completely stopped bleeding. Disposition Clinical Impression: Tongue laceration Disposition: HOME SELF-CARE Condition: Good Additional Instructions: this patient has rebleeding of the tongue he is to clamp it for 15 minutes and recheck and then if it continues to bleed do it again and if that is still bleeding at that time come to the emergency department. Is patient prescribed a controlled substance at d/c from ED?: No Referrals: Stephania Orosco MD [Primary Care Provider] - 1-2 days Time of Disposition: 23:52
== END 2021-10-22 00:04 | disposition home or self-care (01) ==
LOC: EC 22:03
DX: S01.512A Laceration without foreign body of oral cavity, initial encounter (principal); I10 Essential (primary) hypertension; J44.9 Chronic obstructive pulmonary disease, unspecified; E78.5 Hyperlipidemia, unspecified; K21.9 Gastro-esophageal reflux disease without esophagitis; M19.90 Unspecified osteoarthritis, unspecified site; F32.A Depression, unspecified; F41.9 Anxiety disorder, unspecified; Z87.891 Personal history of nicotine dependence; Z79.02 Long term (current) use of antithrombotics/antiplatelets; Z79.01 Long term (current) use of anticoagulants; Z79.51 Long term (current) use of inhaled steroids; Z79.899 Other long term (current) drug therapy; X58.XXXA Exposure to other specified factors, initial encounter
CPT/HCPCS: 99283

== ENCOUNTER 2021-11-09 23:07 | Observation (INO) | payer MEDICARE, OTHER ==
[2021-11-09] MEDS ORDERED: HYDROmorphone 1 MG/ML 1 ML SYRINGE IM STA (23:58)
--- NOTE | 2021-11-09 23:59 | ED ---
Lower Extremity Injury HPI - General Chief Complaint: Extremity Injury, Lower Stated Complaint: Ankle Injury Time Seen by Provider: 11/09/21 23:17 Source: patient, EMS, RN notes reviewed, old records reviewed Mode of arrival: EMS Limitations: no limitations - History of Present Illness Initial Comments: T Follows mechanical in nature.his is a 71-year-old male to the ER for evaluation today. Patient presented today for evaluation in regards to right ankle pain after a fall. Fall with closed prior to arrival patient was sitting at home pain is progressively worsening. Patient's fall was tripping on the sidewalk into a snowbank. No other injuries or pain aside from the right ankle. MD Complaint: ankle injury (right) -: hour(s) (3) Injury: Ankle: Right Type of Injury: inversion, hyperflexion Place: street/outdoors Severity: moderate Severity scale (1-10): 4 Improves With: nothing Worsens With: weight bearing Context: fall Other Symptoms: other (none) Associated Symptoms: swelling, numbness, tingling, able to partially bear weight Treatments Prior to Arrival: other (none) - Related Data Home Medications Medication Instructions Recorded Confirmed Fluticasone/Salmeterol [Advair 1 puff INHALATION RT-BID 06/08/15 10/21/21 250-50 Diskus] Fluticasone Nasal [place] [Flonase 2 spr EA NOSTRIL DAILY PRN 09/27/17 10/21/21 Nasal [place]] Previous Rx's Medication Instructions Recorded Atorvastatin [Lipitor] 80 mg PO HS #30 tab 09/29/19 Ipratropium/Albuterol Sulfate 1 puff INHALATION RT-QID PRN #1 inh 09/29/19 [Combivent Respimat Inhaler] Losartan [Cozaar] 100 mg PO DAILY #60 tab 09/29/19 Nitroglycerin Sl Tabs [Nitrostat] 0.4 mg SUBLINGUAL Q5M PRN #20 tab 09/29/19 Clopidogrel [Plavix] 75 mg PO DAILY 30 Days #30 tab 11/08/19 Rivaroxaban [Xarelto] 15 mg PO DAILY 30 Days #30 tab 11/08/19 Allergies Allergy/AdvReac Type Severity Reaction Status Date / Time No Known Allergies Allergy Verified 10/21/21 23:09 Review of Systems ROS Statement: Those systems with pertinent positive or pertinent negative responses have been documented in the HPI. ROS Other: All systems not noted in ROS Statement are negative. Past Medical History Past Medical History: COPD, CVA/TIA, GERD/Reflux, Hyperlipidemia, Hypertension, Osteoarthritis (OA), Pneumonia, Sleep Apnea/CPAP/BIPAP, Vascular Disorder Additional Past Medical History / Comment(s): Pt recently admitted to [facility] on 09/25/19 with NSTEMI/urinary retention with law/generalized lower abdominal pain thought to possibly be mild colitis, R pulmonary consolidation, possible R hip tissue cellulitis. 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, PVD, chronic low back pain/DDD/scoliosis, cervical pain, bilateral hip pain,chronic lower extremity edema, sinus issues, hiatal hernia, PVD History of Any Multi-Drug Resistant Organisms: None Reported Past Surgical History: Adenoidectomy, Cholecystectomy, Orthopedic Surgery, Tonsillectomy Additional Past Surgical History / Comment(s): 09/26/19 PCI with 2 stents, 2010 L leg surgery and pt thinks he has a loly, R radial head fracture with surgery x2, deviated septum surgery, EGD, colonoscopy, rectal fissure repair, hemorrhoidectomy Past Anesthesia/Blood Transfusion Reactions: No Reported Reaction, Motion Sickness Additional Past Anesthesia/Blood Transfusion Reaction / Comment(s): vertigo Past Psychological History: Anxiety, Depression, PTSD Smoking Status: Former smoker Past Alcohol Use History: None Reported Past Drug Use History: None Reported - Past Family History Father Additional Family Medical History / Comment(s): father in airplane crash when in [place]. pt only knows that alcoholism ran in his family Brother Family Medical History: Cancer Additional Family Medical History / Comment(s): Pancreatic Cancer Mother History Unknown: Yes Family Medical History: Diabetes Mellitus Additional Family Medical History / Comment(s): Mother would not talk about her health. General Exam General appearance: alert, in no apparent distress Head exam: Present: atraumatic, normocephalic, normal inspection Eye exam: Present: normal appearance, PERRL, EOMI. Absent: scleral icterus, conjunctival injection, periorbital swelling ENT exam: Present: normal exam, mucous membranes moist Neck exam: Present: normal inspection. Absent: tenderness, meningismus, lymphadenopathy Respiratory exam: Present: normal lung sounds bilaterally. Absent: respiratory distress, wheezes, rales, rhonchi, stridor Cardiovascular Exam: Present: regular rate, normal rhythm, normal heart sounds. Absent: systolic murmur, diastolic murmur, rubs, gallop, clicks GI/Abdominal exam: Present: soft, normal bowel sounds. Absent: distended, tenderness, guarding, rebound, rigid Extremities exam: Present: normal inspection, full ROM, normal capillary refill, other (right lateral malleolus tenderness). Absent: tenderness, pedal edema, j oint swelling, calf tenderness Back exam: Present: normal inspection Neurological exam: Present: alert, oriented X3, CN II-XII intact Psychiatric exam: Present: normal affect, normal mood Skin exam: Present: warm, dry, intact, normal color. Absent: rash Course Vital Signs 11/09/21 11/10/21 23:13 00:07 Temperature 98.2 F Pulse Rate 77 77 Respiratory 20 20 Rate Blood Pressure 165/93 165/93 O2 Sat by Pulse 95 94 L Oximetry - Reevaluation(s) Reevaluation #1: 11/10/21 00:49 medical record is reviewed Reevaluation #2: 11/10/21 00:49 patient's pain is resolved Reevaluation #3: 11/10/21 00:49 patient is informed results and questions are answered Medical Decision Making - Medical Decision Making 71 male to the emergency department with fall. X-ray negative right ankle sprain. Patient encouraged ice motion Tylenol and can be discharged home - Radiology Data Radiology results: report reviewed (x-ray right ankle negative for traumatic injury), image reviewed Disposition Clinical Impression: Fall, Right ankle sprain Disposition: HOME SELF-CARE Condition: Good Instructions (If sedation given, give patient instructions): Ankle Sprain (ED) Is patient prescribed a controlled substance at d/c from ED?: No Referrals: Stephania Orosco MD [Primary Care Provider] - 1-2 days
--- NOTE | 2021-11-10 00:30 | XR ---
EXAMINATION TYPE: XR ankle complete RT DATE OF EXAM: 11/10/2021 COMPARISON: NONE HISTORY: Pain TECHNIQUE: 3 views FINDINGS: There is soft tissue swelling over the lateral malleolus. I see no fracture nor dislocation . Ankle mortise is anatomic. IMPRESSION: Soft tissue swelling. No fracture seen.
[2021-11-10] MEDS ORDERED: ONDANSETRON 4 MG TAB PO STA (00:58)
[2021-11-10] MEDS ORDERED: IPRATROPIUM-ALBUTEROL 3 ML NEB INHALATION STA (01:27)
[2021-11-10] MEDS ORDERED: SODIUM CHLORIDE 0.9% 1,000 ML IV STA (01:27)
[2021-11-10] MEDS ORDERED: methylPREDNISolone SOD SUCCI 125 MG/2 ML VIAL IV STA (01:27)
[2021-11-10] MEDS ORDERED: ONDANSETRON 4 MG/2 ML VIAL IVP PRN (01:28)
[2021-11-10] MEDS ORDERED: ONDANSETRON 4 MG/2 ML VIAL IVP STA (01:28)
--- NOTE | 2021-11-10 01:29 | ED ---
Medical Decision Making - Medical Decision Making 71 male who began to have breathing discomfort prior to discharge. Patient had cough or congestion shortness of breath. Given breathing treatment with mild improvement. Patient states he doesn't feel he normal as he can't walk and he can't stand on his right leg is having severe difficulty breathing with activity. Patient will be admitted for COPD exacerbation breathing treatment and pain control for his right ankle sprain - Lab Data Result diagrams: 11/10/21 01:47 11/10/21 01:47 Lab Results 11/10/21 11/10/21 11/10/21 Range/Units 01:47 01:47 01:47 WBC 11.8 H (3.8-10.6) k/uL RBC 4.62 (4.30-5.90) m/uL Hgb 15.3 (13.0-17.5) gm/dL Hct 45.2 (39.0-53.0) % MCV 97.9 (80.0-100.0) fL MCH 33.0 (25.0-35.0) pg MCHC 33.7 (31.0-37.0) g/dL RDW 14.1 (11.5-15.5) % Plt Count 295 (150-450) k/uL MPV 7.2 Neutrophils % 64 % Lymphocytes % 28 % Monocytes % 5 % Eosinophils % 0 % Basophils % 0 % Neutrophils # 7.6 (1.3-7.7) k/uL Lymphocytes # 3.3 (1.0-4.8) k/uL Monocytes # 0.5 (0-1.0) k/uL Eosinophils # 0.0 (0-0.7) k/uL Basophils # 0.0 (0-0.2) k/uL PT 10.9 (9.0-12.0) sec INR 1.0 (<1.2) APTT 25.7 (22.0-30.0) sec Sodium 136 L (137-145) mmol/L Potassium 4.6 (3.5-5.1) mmol/L Chloride 104 (98-107) mmol/L Carbon Dioxide 24 (22-30) mmol/L Anion Gap 8 mmol/L BUN 21 H (9-20) mg/dL Creatinine 0.99 (0.66-1.25) mg/dL Est GFR (CKD-EPI)AfAm 88 (>60 ml/min/1.73 sqM) Est GFR (CKD-EPI)NonAf 76 (>60 ml/min/1.73 sqM) Glucose 138 H (74-99) mg/dL Calcium 9.3 (8.4-10.2) mg/dL Magnesium 2.1 (1.6-2.3) mg/dL Total Bilirubin 0.6 (0.2-1.3) mg/dL AST 32 (17-59) U/L ALT 28 (4-49) U/L Alkaline Phosphatase 130 H (38-126) U/L Total Protein 7.0 (6.3-8.2) g/dL Albumin 4.3 (3.5-5.0) g/dL - Radiology Data Radiology results: report reviewed (Chest x-ray shows no significant acute disease), image reviewed Disposition Clinical Impression: Fall, Right ankle sprain, COPD exacerbation, Acute bronchitis, COPD with acute exacerbation, Nausea & vomiting Disposition: ADMITTED IP TO THIS [facility] Condition: Good Instructions (If sedation given, give patient instructions): Ankle Sprain (ED) Is patient prescribed a controlled substance at d/c from ED?: No Referrals: Stephania Orosco MD [Primary Care Provider] - 1-2 days
[2021-11-10 02:01] LABS: Basophils % (A) 0 %; Eosinophils % (A) 0 %; HCT 45.2 % (39.0-53.0); HGB 15.3 gm/dL (13.0-17.5); Lymphocytes # (A) 3.3 k/uL (1.0-4.8); Lymphocytes % (A) 28 %; MCHC 33.7 g/dL (31.0-37.0); MCV 97.9 fL (80.0-100.0); Mean Platelet Volume 7.2; Monocytes # (A) 0.5 k/uL (0-1.0); Monocytes % (A) 5 %; Neutrophils # (A) 7.6 k/uL (1.3-7.7); Neutrophils % (A) 64 %; Platelet Count 295 k/uL (150-450); RBC 4.62 m/uL (4.30-5.90); RDW 14.1 % (11.5-15.5); WBC 11.8 k/uL (3.8-10.6)
--- NOTE | 2021-11-10 02:01 | XR ---
EXAMINATION TYPE: XR chest 1V portable DATE OF EXAM: 11/10/2021 COMPARISON: 11/06/2019 HISTORY: Short of breath TECHNIQUE: Single view FINDINGS: There are some atelectasis at both lung bases. There is poor inspiration. There is no heart failure. Heart size is normal. Bony thorax appears intact IMPRESSION: Atelectasis at the lung bases with scarring that is not significantly different than old exam. No heart failure seen.
[2021-11-10 02:11] LABS: Partial Thromboplastin Time 25.7 sec (22.0-30.0); Prothrombin Time 10.9 sec (9.0-12.0)
[2021-11-10 02:23] LABS: Albumin 4.3 g/dL (3.5-5.0); Calcium 9.3 mg/dL (8.4-10.2); Magnesium 2.1 mg/dL (1.6-2.3); Potassium 4.6 mmol/L (3.5-5.1); Total Bilirubin 0.6 mg/dL (0.2-1.3)
[2021-11-10] MEDS ORDERED: AZITHROMYCIN 500 MG TAB PO STA (02:25)
[2021-11-10] MEDS: SODIUM CHLORIDE 0.9% 1,000 ML IV SCH ×2 (02:45→13:36)
[2021-11-10] MEDS: IPRATROPIUM-ALBUTEROL 3 ML NEB INHALATION SCH ×3 (07:18→16:27)
[2021-11-10 08:51] VITALS: RESP 16
[2021-11-10] MEDS: methylPREDNISolone SOD SUCCI 125 MG/2 ML VIAL IV SCH ×2 (08:58→14:40)
[2021-11-10] MEDS ORDERED: LOSARTAN 50 MG TAB PO SCH (12:00)
[2021-11-10] MEDS: traMADol 50 MG TAB PO PRN ×2 (12:06→19:14)
[2021-11-10] MEDS ORDERED: NITROGLYCERIN SL TABS 0.4 MG TAB SUBLINGUAL PRN (14:09)
--- NOTE | 2021-11-10 14:25 | P.HPIM ---
History of Present Illness 71-year-old male came in with the right ankle pain after a mechanical fall. Patient didn't have any fracture did have soft tissue injury. Patient received morphine after which patient became short of breath and tired lightheaded be cause of which patient was admitted patient was given Sulamyd outpatient presently doesn't have symptoms at this time although patient has slight wheeze on exam. Patient does have history of COPD and quit smoking many years ago patient had history of smoking in the past. Patient is otherwise clinically doing well will not discharged today on inhaled steroids, inhalation treatments. Patient will be given a dose of her tramadol if he is able to tolerate problems patient will be discharged on tramadol for pain, patient was recommended to have a ankle brace. REVIEW OF SYSTEMS: CONSTITUTIONAL: No fever, no malaise, no fatigue. HEENT: No recent visual problems or hearing problems. Denied any sore throat. CARDIOVASCULAR: No chest pain, orthopnea, PND, no palpitations, no syncope. PULMONARY: No shortness of breath, no cough, no hemoptysis. GASTROINTESTINAL: No diarrhea, no nausea, no vomiting, no abdominal pain. NEUROLOGICAL: No headaches, no weakness, no numbness. HEMATOLOGICAL: Denies any bleeding or petechiae. GENITOURINARY: Denies any burning micturition, frequency, or urgency. MUSCULOSKELETAL/RHEUMATOLOGICAL: As mentioned in HPI ENDOCRINE: Denies any polyuria or polydipsia. The rest of the 14-point review of systems is negative. PHYSICAL EXAMINATION: GENERAL: The patient is alert and oriented x3, not in any acute distress. Well developed, well nourished. HEENT: Pupils are round and equally reacting to light. EOMI. No scleral icterus. No conjunctival pallor. Normocephalic, atraumatic. No pharyngeal erythema. No thyromegaly. CARDIOVASCULAR: S1 and S2 present. No murmurs, rubs, or gallops. PULMONARY: Chest is clear to auscultation, no wheezing or crackles. ABDOMEN: Soft, nontender, nondistended, normoactive bowel sounds. No palpable organomegaly. MUSCULOSKELETAL: Pain in the right ankle EXTREMITIES: No cyanosis, clubbing, or pedal edema. NEUROLOGICAL: Gross neurological examination did not reveal any focal deficits. SKIN: No rashes. Assessment and plan -Trauma to her right ankle and soft tissue injury, patient does have history of atrial fibrillation and patient is on anticoagulation because of which I'm not giving him any nonsteroidal anti-inflammatory medications at this time. Patient will be discharged on tramadol as mentioned above patient is a [address] -Possible ALLERGIC reaction to morphine which resolved at this time patient received Solu-Medrol monitored overnight -Leukocytosis secondary to right ankle injury -COPD toilet acute exacerbation patient will be discharged on inhalational treatments and inhaled steroids -Gases available reflux disease -Hyperlipidemia 11 hypertension Sleep apnea for which patient uses CPAP machine. Patient will be discharged today Past Medical History Past Medical History: COPD, CVA/TIA, GERD/Reflux, Hyperlipidemia, Hypertension, Osteoarthritis (OA), Pneumonia, Sleep Apnea/CPAP/BIPAP, Vascular Disorder Additional Past Medical History / Comment(s): Pt recently admitted to [facility] on 09/25/19 with NSTEMI/urinary retention with law/generalized lower abdominal pain thought to possibly be mild colitis, R pulmonary consolidation, possible R hip tissue cellulitis. 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, PVD, chronic low back pain/DDD/scoliosis, cervical pain, bilateral hip pain,chronic lower extremity edema, sinus issues, hiatal hernia, PVD History of Any Multi-Drug Resistant Organisms: None Reported Past Surgical History: Adenoidectomy, Cholecystectomy, Orthopedic Surgery, Tonsillectomy Additional Past Surgical History / Comment(s): 09/26/19 PCI with 2 stents, 2010 L leg surgery and pt thinks he has a loly, R radial head fracture with surgery x2, deviated septum surgery, EGD, colonoscopy, rectal fissure repair, hemorrhoidectomy Past Anesthesia/Blood Transfusion Reactions: No Reported Reaction, Motion Sickness Additional Past Anesthesia/Blood Transfusion Reaction / Comment(s): vertigo Past Psychological History: Anxiety, Depression, PTSD Additional Psychological History / Comment(s): Pt resides alone with a cat. He states he was to have home care after last hospitalization discharge but never received contact. Pt uses a cane. He drives. He served in the [employer]. He is disabled. 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 Pt used to smoke 1 packper day now smokes 1 pack per month Past Drug Use History: None Reported Additional Drug Use History / Comment(s): Pt states he quit smoking marijuana for years but in the past few years he has started to smoke it on a rare basis. - Past Family History Father Additional Family Medical History / Comment(s): father in airplane crash when in [place]. pt only knows that alcoholism ran in his family Brother Family Medical History: Cancer Additional Family Medical History / Comment(s): Pancreatic Cancer Mother History Unknown: Yes Family Medical History: Diabetes Mellitus Additional Family Medical History / Comment(s): Mother would not talk about her health. Medications and Allergies Home Medications Medication Instructions Recorded Confirmed Type Fluticasone/Salmeterol [Advair 1 puff INHALATION RT-BID 06/08/15 11/10/21 History 250-50 Diskus] Atorvastatin [Lipitor] 80 mg PO HS #30 tab 09/29/19 11/10/21 Rx Nitroglycerin Sl Tabs [Nitrostat] 0.4 mg SUBLINGUAL Q5M PRN #20 tab 09/29/19 11/10/21 Rx Clopidogrel [Plavix] 75 mg PO DAILY 30 Days #30 tab 11/08/19 11/10/21 Rx Rivaroxaban [Xarelto] 15 mg PO DAILY 30 Days #30 tab 11/08/19 11/10/21 Rx Ipratropium/Albuterol Sulfate 1 puff INHALATION RT-BID 11/10/21 11/10/21 History [Combivent Respimat Inhaler] Losartan Potassium 100 mg PO DAILY 11/10/21 11/10/21 History Multivitamins, Thera [Multivitamin 1 tab PO DAILY 11/10/21 11/10/21 History (formulary)] traMADol HCl [Ultram] 50 mg PO QID PRN #20 tab 11/10/21 Rx Allergies Allergy/AdvReac Type Severity Reaction Status Date / Time hydromorphone [From Dilaudid] AdvReac Vomiting Verified 11/10/21 12:27 Physical Exam Vitals: Vital Signs Temp Pulse Pulse Resp BP BP BP 11/10/21 11:50 74 11/10/21 11:42 72 11/10/21 08:00 84 16 11/10/21 07:30 76 11/10/21 07:22 11/10/21 07:18 74 11/10/21 07:00 98.3 F 84 16 171/93 11/10/21 04:12 18 11/10/21 03:54 97.6 F 70 18 152/76 11/10/21 02:45 97.9 F 80 24 143/70 11/10/21 01:53 64 11/10/21 01:49 67 11/10/21 01:00 72 20 144/82 11/10/21 00:07 77 20 165/93 11/09/21 23:13 98.2 F 77 20 165/93 Pulse Ox 11/10/21 11:50 11/10/21 11:42 11/10/21 08:00 11/10/21 07:30 11/10/21 07:22 99 11/10/21 07:18 11/10/21 07:00 94 L 11/10/21 04:12 11/10/21 03:54 95 11/10/21 02:45 95 11/10/21 01:53 11/10/21 01:49 11/10/21 01:00 95 11/10/21 00:07 94 L 11/09/21 23:13 95 Intake and Output 11/09/21 11/10/21 11/10/21 22:59 06:59 14:59 Intake Total 118 Balance 118 Intake: Oral 118 Other: Voiding Method Urinal Urinal Weight 95.254 kg Results CBC & Chem 7: 11/10/21 01:47 11/10/21 01:47 Labs: Abnormal Lab Results - Last 24 Hours (Table) 11/10/21 11/10/21 Range/Units 01:47 01:47 WBC 11.8 H (3.8-10.6) k/uL Sodium 136 L (137-145) mmol/L BUN 21 H (9-20) mg/dL Glucose 138 H (74-99) mg/dL Alkaline Phosphatase 130 H (38-126) U/L Thrombosis Risk Factor Assmnt - Choose All That Apply Each Risk Factor Represents 2 Points: Age 61-74 years Thrombosis Risk Factor Assessment Total Risk Factor Score: 2 Thrombosis Risk Factor Assessment Level: Low Risk
--- NOTE | 2021-11-10 14:25 | P.DS ---
Providers Date of admission: 11/10/21 02:22 Attending physician: Celestina Xavier Primary care physician: Ana Luisa Cat [facility] Course: Please refer to my HPI for further details Patient Condition at Discharge: Good Plan - Discharge Summary New Discharge Prescriptions: New traMADol HCl [Ultram] 50 mg PO QID PRN #20 tab PRN Reason: Pain/Discomfort Continue Fluticasone/Salmeterol [Advair 250-50 Diskus] 1 puff INHALATION RT-BID Atorvastatin [Lipitor] 80 mg PO HS #30 tab Nitroglycerin Sl Tabs [Nitrostat] 0.4 mg SUBLINGUAL Q5M PRN #20 tab PRN Reason: Chest Pain Clopidogrel [Plavix] 75 mg PO DAILY 30 Days #30 tab Rivaroxaban [Xarelto] 15 mg PO DAILY 30 Days #30 tab No Action Ipratropium/Albuterol Sulfate [Combivent Respimat Inhaler] 1 puff INHALATION RT-BID Losartan Potassium 100 mg PO DAILY Multivitamins, Thera [Multivitamin (formulary)] 1 tab PO DAILY Discharge Medication List Fluticasone/Salmeterol [Advair 250-50 Diskus] 1 puff INHALATION RT-BID 06/08/15 [History] Atorvastatin [Lipitor] 80 mg PO HS #30 tab 09/29/19 [Rx] Nitroglycerin Sl Tabs [Nitrostat] 0.4 mg SUBLINGUAL Q5M PRN #20 tab 09/29/19 [Rx] Clopidogrel [Plavix] 75 mg PO DAILY 30 Days #30 tab 11/08/19 [Rx] Rivaroxaban [Xarelto] 15 mg PO DAILY 30 Days #30 tab 11/08/19 [Rx] Ipratropium/Albuterol Sulfate [Combivent Respimat Inhaler] 1 puff INHALATION RT- BID 11/10/21 [History] Losartan Potassium 100 mg PO DAILY 11/10/21 [History] Multivitamins, Thera [Multivitamin (formulary)] 1 tab PO DAILY 11/10/21 [History] traMADol HCl [Ultram] 50 mg PO QID PRN #20 tab 11/10/21 [Rx] Follow up Appointment(s)/Referral(s): Stephania Orosco MD [Primary Care Provider] - 3 Days Patient Instructions/Handouts: Ankle Sprain (ED) Discharge Disposition: HOME SELF-CARE
[2021-11-10] MEDS ORDERED: CLOPIDOGREL 75 MG TAB PO SCH (14:30)
[2021-11-10 15:54] VITALS: BP 127/66; TEMP 97.6
[2021-11-10 16:37] VITALS: PULSE 84
[2021-11-10] MEDS ORDERED: NON FORMULARY DRUG (Ipratropium/Albuterol Sulfate [Combivent Respimat Inhaler] 1 INHALER E INHALATION SCH (20:00)
[2021-11-10] MEDS ORDERED: SYMBICORT 80-4.5 MCG INHALER INHALATION SCH (20:00)
[2021-11-10] MEDS ORDERED: ATORVASTATIN 80 MG TAB PO SCH (21:00)
[2021-11-11] MEDS ORDERED: MULTIVITAMINS, THERA 1 EACH TAB PO SCH (09:00)
[2021-11-11] MEDS ORDERED: RIVAROXABAN 15 MG TAB PO SCH (09:00)
== END 2021-11-10 19:55 | disposition home or self-care (01) ==
LOC: EC 23:07 → 6NMEDSUR 11-10 02:22
PROVIDERS: ADMIT Hospitalist; ATTEND Hospitalist
DX: S93.401A Sprain of unspecified ligament of right ankle, initial encounter (principal); J44.1 Chronic obstructive pulmonary disease with (acute) exacerbation; W01.0XXA Fall on same level from slipping, tripping and stumbling without subsequent striking against object, initial encounter; Y92.480 Sidewalk as the place of occurrence of the external cause; D72.829 Elevated white blood cell count, unspecified; K21.9 Gastro-esophageal reflux disease without esophagitis; E78.5 Hyperlipidemia, unspecified; G47.33 Obstructive sleep apnea (adult) (pediatric); I10 Essential (primary) hypertension; F17.210 Nicotine dependence, cigarettes, uncomplicated; I25.2 Old myocardial infarction; F32.A Depression, unspecified; F43.10 Post-traumatic stress disorder, unspecified; B15.9 Hepatitis A without hepatic coma; G89.29 Other chronic pain; K44.9 Diaphragmatic hernia without obstruction or gangrene; K58.9 Irritable bowel syndrome, unspecified; M41.9 Scoliosis, unspecified; M19.90 Unspecified osteoarthritis, unspecified site; M25.551 Pain in right hip; M25.552 Pain in left hip; M54.2 Cervicalgia; J98.11 Atelectasis; M54.50 Low back pain, unspecified; R10.30 Lower abdominal pain, unspecified; R33.9 Retention of urine, unspecified; I73.9 Peripheral vascular disease, unspecified; Z79.01 Long term (current) use of anticoagulants; Z79.02 Long term (current) use of antithrombotics/antiplatelets; Z79.899 Other long term (current) drug therapy; Z88.5 Allergy status to narcotic agent; Z87.440 Personal history of urinary (tract) infections; Z90.49 Acquired absence of other specified parts of digestive tract; Z87.01 Personal history of pneumonia (recurrent); Z80.0 Family history of malignant neoplasm of digestive organs; Z83.3 Family history of diabetes mellitus; Z86.73 Personal history of transient ischemic attack (TIA), and cerebral infarction without residual deficits
CPT/HCPCS: 99285; 96376; 96361; 96372; 96374; 96375; 36415; 94660; 94640 ×2; 94760; 83880; 80053; 83690; 83735; 84484; 85025; 85610; 85730; 73610; 71045; G0378; J2930; J2405; J1170

== ENCOUNTER → 2022-12-26 | Outpatient (CLI) | payer MEDICARE, OTHER ==
--- NOTE | 2022-12-26 16:27 | CT ---
EXAMINATION TYPE: CT angio neck CT DLP: 338.5 mGycm, Automated exposure control for dose reduction was used. DATE OF EXAM: 12/26/2022 4:13 PM COMPARISON: None. 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 Axial images are supplemented with 3D reconstructions w hich were post-processed at an independent workstation. NASCET criteria used. FINDINGS: CTA NECK: Right Carotid System: The common carotid artery and external carotid artery are patent. Minimal atherosclerotic plaque invo lving the carotid bulb. The carotid bifurcation demonstrates no evidence of hemodynamically significa nt stenosis. The remaining portions of the internal carotid artery demonstrate normal size without si gnificant narrowing. Left Carotid System: The common carotid artery and external carotid artery are patent. Less than 50% stenosis at the origi n of the left internal carotid artery secondary to calcified and noncalcified plaque. The carotid bif urcation demonstrates no evidence of hemodynamically significant stenosis. The remaining portions of the internal carotid artery demonstrate normal size without significant narrowing. The left vertebral artery is patent without hemodynamically significant stenosis. The V4 segment of t he right vertebral artery is diminutive and not well visualized. The remaining portions of the right vertebral artery are patent without evidence of hemodialysis significant stenosis. There is a three-vessel aortic arch. The origins of the great vessels are patent. No evidence of hemo dynamically significant stenosis. IMPRESSION: 1. Less than 50% stenosis at the origin of the left internal carotid artery secondary to calcified pl aque. 2. No significant stenosis involving the origin of the right internal carotid artery. 3. Diminutive/poor visualization of the V4 segment of the right vertebral artery.
== END | disposition home or self-care (01) ==
LOC: RADCTMAIN 14:28
PROVIDERS: ATTEND Internal Medicine Interventional Cardiology
DX: I65.22 Occlusion and stenosis of left carotid artery (principal); I65.8 Occlusion and stenosis of other precerebral arteries
CPT/HCPCS: 82565; 84520; 70498; 36415; Q9967

== ENCOUNTER 2024-07-28 13:49 | Inpatient (IN) | payer MEDICARE, OTHER ==
--- NOTE | 2024-07-28 14:58 | ED ---
General Adult HPI - General Chief complaint: Recheck/Abnormal Lab/Rx Stated complaint: fistula Time Seen by Provider: 07/28/24 13:58 Source: patient, EMS, RN notes reviewed, old records reviewed Mode of arrival: EMS Limitations: no limitations - History of Present Illness Initial comments: Patient is a 74-year-old male presenting to the emergency department as a transfer from [facility]. Patient has had several days, up to a week discomfort of left anal region. Patient does have history of similar episode around 40 years ago. Patient states discomfort is somewhat serious and increases with movement. Patient believes there has been some drainage. Patient did have MRI done concerning for phlegmon, fistula possible abscess. - Related Data Home Medications Medication Instructions Recorded Confirmed Fluticasone Propion/Salmeterol 1 puff INHALATION RT-BID 06/08/15 11/10/21 [Advair 250-50 Diskus] Ipratropium/Albuterol Sulfate 1 puff INHALATION RT-BID 11/10/21 11/10/21 [Combivent Respimat Inhaler] Losartan Potassium 100 mg PO DAILY 11/10/21 11/10/21 Multivitamins, Thera [Multivitamin 1 tab PO DAILY 11/10/21 11/10/21 (formulary)] Previous Rx's Medication Instructions Recorded Atorvastatin [Lipitor] 80 mg PO HS #30 tab 09/29/19 Nitroglycerin Sl Tabs [Nitrostat] 0.4 mg SUBLINGUAL Q5M PRN #20 tab 09/29/19 Clopidogrel [Plavix] 75 mg PO DAILY 30 Days #30 tab 11/08/19 Rivaroxaban [Xarelto] 15 mg PO DAILY 30 Days #30 tab 11/08/19 traMADol HCl [Ultram] 50 mg PO QID PRN #20 tab 11/10/21 Allergies Allergy/AdvReac Type Severity Reaction Status Date / Time hydromorphone [From Dilaudid] AdvReac Vomiting Verified 07/28/24 14:11 Review of Systems ROS Statement: Those systems with pertinent positive or pertinent negative responses have been documented in the HPI. ROS Other: All systems not noted in ROS Statement are negative. Constitutional: Denies: fever Eyes: Denies: eye pain ENT: Denies: ear pain Respiratory: Denies: dyspnea Cardiovascular: Denies: chest pain Gastrointestinal: Reports: as per HPI. Denies: abdominal pain Past Medical History Past Medical History: Atrial Fibrillation, COPD, CVA/TIA, GERD/Reflux, Hyperlipidemia, Hypertension, Osteoarthritis (OA), Pneumonia, Sleep Apnea/CPAP/BIPAP, Vascular Disorder Additional Past Medical History / Comment(s): Pt recently admitted to [facility] on 09/25/19 with NSTEMI/urinary retention with law/generalized lower abdominal pain thought to possibly be mild colitis, R pulmonary consolidation, possible R hip tissue cellulitis. 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, PVD, chronic low back pain/DDD/scoliosis, cervical pain, bilateral hip pain,chronic lower extremity edema, sinus issues, hiatal hernia, PVD History of Any Multi-Drug Resistant Organisms: None Reported Past Surgical History: Adenoidectomy, Cholecystectomy, Heart Catheterization With Stent, Orthopedic Surgery, Tonsillectomy Additional Past Surgical History / Comment(s): 09/26/19 PCI with 2 stents, 2010 L leg surgery and pt thinks he has a loly, R radial head fracture with surgery x2, deviated septum surgery, EGD, colonoscopy, rectal fissure repair, hemorrhoidectomy Past Anesthesia/Blood Transfusion Reactions: No Reported Reaction, Motion Sickness Additional Past Anesthesia/Blood Transfusion Reaction / Comment(s): vertigo Past Psychological History: Anxiety, Depression, PTSD Smoking Status: Former smoker Past Alcohol Use History: None Reported Past Drug Use History: Marijuana - Past Family History Father Additional Family Medical History / Comment(s): father in airplane crash when in [place]. pt only knows that alcoholism ran in his family Brother Family Medical History: Cancer Additional Family Medical History / Comment(s): Pancreatic Cancer Mother History Unknown: Yes Family Medical History: Diabetes Mellitus Additional Family Medical History / Comment(s): Mother would not talk about her health. General Exam Limitations: no limitations General appearance: alert, in no apparent distress Head exam: Present: normocephalic Eye exam: Present: normal appearance Respiratory exam: Present: normal lung sounds bilaterally Cardiovascular Exam: Present: regular rate, normal rhythm GI/Abdominal exam: Present: soft. Absent: distended, tenderness Rectal exam: Present: other (Left anal region with approximately 2 cm mass with tenderness. Also potential fistula) Extremities exam: Present: normal inspection Neurological exam: Present: alert Psychiatric exam: Present: normal affect, normal mood Skin exam: Present: normal color Course Vital Signs 07/28/24 13:53 Temperature 98.0 F Pulse Rate 78 Respiratory 20 Rate Blood Pressure 118/69 O2 Sat by Pulse 91 L Oximetry Medical Decision Making - Medical Decision Making Was pt. sent in by a medical professional or institution (, [employer], CHANNEL PROGRAM MANAGER, urgent care, hospital, or group home...) When possible be specific @ -Patient was transferred from [facility] Did you speak to anyone other than the patient for history (EMS, parent, family, police, friend...)? What history was obtained from this source @ -Transferring team Did you review nursing and triage notes (agree or disagree)? Why? @ -I reviewed and agree with nursing and triage notes Were old charts reviewed (outside hosp., previous admission, EMS record, old EKG, old radiological studies, urgent care reports/EKG's, group home records)? Report findings @ -Chart reviewed from [facility] Differential Diagnosis (chest pain, altered mental status, abdominal pain women, abdominal pain men, vaginal bleeding, weakness, fever, dyspnea, syncope, headache, dizziness, GI bleed, back pain, seizure, CVA, palpatations, mental health, musculoskeletal)? @ -Differential Abdominal Pain Men: Appendicitis, cholecystitis, diverticulosis, ischemic bowel, pancreatitis, hepatitis, UTI, gastroenteritis, AAA, incarcerated hernia, bowel obstruction, constipation, inflammatory bowel, hepatitis, peptic ulcer disease, splenic infarction, perforated viscus, testicular torsion, this is not meant to be an al l-inclusive list EKG interpreted by me (3pts min.). @ -As above X-rays interpreted by me (1pt min.). @ -None done CT interpreted by me (1pt min.). @ -None done U/S interpreted by me (1pt. min.). @ -None done What testing was considered but not performed or refused? (CT, X-rays, U/S, labs)? Why? @ -None What meds were considered but not given or refused? Why? @ -None Did you discuss the management of the patient with other professionals (professionals i.e. , [employer], CHANNEL PROGRAM MANAGER, lab, RT, psych nurse, renal social worker, maintenance representative, teacher, state highway police officer, casework supervisor)? Give summary @ -Case discussed with Dr. Landis who will consult and request medical admission. Case was discussed with Dr. Xavier who will admit covering Dr. Sanchez Was smoking cessation discussed for >3mins.? @ -No Was critical care preformed (if so, how long)? @ -No Were there social determinants of health that impacted care today? How? (Homelessness, low income, unemployed, alcoholism, drug addiction, transportation, low edu. Level, literacy, decrease access to med. care, usp, rehab)? @ -No Was there de-escalation of care discussed even if they declined (Discuss DNR or withdrawal of care, Hospice)? DNR status @ -No What co-morbidities impacted this encounter? (DM, HTN, Smoking, COPD, CAD, Cancer, CVA, ARF, Chemo, Hep., AIDS, mental health diagnosis, sleep apnea, morbid obesity)? @ -None Was patient admitted / discharged? Hospital course, mention meds given and route, prescriptions, significant lab abnormalities, going to OR and other pertinent info. @ -Patient presents with rectal pain with MRI concerning for rectal abscess/phlegmon and fistula. Patient will be admitted with surgical consult. Admission orders written. Patient is aware of plan. Patient was given intravenous antibiotics prior to transfer Undiagnosed new problem with uncertain prognosis? @ -No Drug Therapy requiring intensive monitoring for toxicity (Heparin, Nitro, Insulin, Cardizem)? @ -No Were any procedures done? @ -No Diagnosis/symptom? @ -Rectal abscess Acute, or Chronic, or Acute on Chronic? @ -Acute Uncomplicated (without systemic symptoms) or Complicated (systemic symptoms)? @ -Default Side effects of treatment? @ -No Exacerbation, Progression, or Severe Exacerbation? @ -No Poses a threat to life or bodily function? How? (Chest pain, [place], [place], pneumonia, PE, COPD, DKA, ARF, appy, cholecystitis, CVA, Diverticulitis, Homicidal, Suicidal, threat to staff... and all critical care pts) @ -Threat to bowel function Disposition Clinical Impression: Rectal abscess Disposition: ADMITTED IP TO THIS HOSP Is patient prescribed a controlled substance at d/c from ED?: No Referrals: Stephania Orosco MD [Primary Care Provider] - 1-2 days Time of Disposition: 15:13
[2024-07-28] MEDS ORDERED: NALOXONE 0.4 MG/ML 1 ML VIAL IV PRN (15:13)
[2024-07-28] MEDS: SODIUM CHLORIDE 0.9% 1,000 ML IV SCH (15:37)
[2024-07-28] MEDS: PIPERACILLIN-TAZOBACTAM 3.375 GM in SODIUM CHLORIDE 0.9% 100 ML IVPB SCH (15:38)
[2024-07-28] MEDS: MORPHINE SULFATE 4 MG/ML SYRINGE IVP PRN (20:47)
--- NOTE | 2024-07-29 02:54 | HP ---
HISTORY AND PHYSICAL CHIEF COMPLAINT: Rectal fistula. HISTORY OF PRESENT ILLNESS: This is a 74-year-old gentleman with a past medical history of multiple medical problems including atrial fibrillation, COPD, hyperlipidemia, presented to [facility] with history of discomfort around the anal region. The patient had similar symptomatology 40 years ago. Evaluation showed rectal fistula with possible aspirations, referred to [facility] for further evaluation. There is no history of any fever, rigors, or chills at this time. PAST MEDICAL HISTORY: Atrial fibrillation, COPD. Rest of the history and rest of the chart is also reviewed. HOME MEDICATIONS: Reviewed include Ultram, doses and rest of medications reviewed. ALLERGIES: Dilaudid. FAMILY HISTORY: No history of heart disease or strokes in the family. SOCIAL HISTORY: No history of smoking or alcohol. REVIEW OF SYSTEMS: A 14-point review is negative except as mentioned earlier. PHYSICAL EXAMINATION: VITAL SIGNS: Pulse is 78, blood pressure 118/69, respirations 20. HEENT: Conjunctivae normal. NECK: No JVD. CARDIOVASCULAR: S1, S2. RESPIRATIONS: Breath sounds diminished at the bases. No rhonchi. No crackles. ABDOMEN: Soft, obese. LEGS: No edema. NERVOUS SYSTEM: Nonfocal. SKIN: No ulcer, rash, bleeding. JOINTS: No active deforming arthropathy. RECTAL: Fistula present. LABORATORY DATA: Awaited. ASSESSMENT: 1. 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 2. Chronic obstructive pulmonary disease. 3. Atrial fibrillation. 4. Hypertension. 5. Hyperlipidemia. 6. Multiple complex medical issues. 7. History of coronary artery disease stent. RECOMMENDATIONS AND DISCUSSION: This is a 74-year-old gentleman presented with multiple complex medical issues, we will monitor the patient closely. Continue the current management and continue symptomatic treatment. We will obtain surgical evaluation, Infectious Disease evaluation. Broad- spectrum IV antibiotics. Otherwise, home medications will be continued once confirmed. Further recommendations to follow. Prognosis guarded. MMODL / IJN: [id number] /
--- NOTE | 2024-07-29 08:12 | P.GSCN ---
History of Present Illness Consult date: 07/29/24 History of present illness: CHIEF COMPLAINT: Buttock pain HISTORY OF PRESENT ILLNESS: The patient is a 74-year old male who comes in left buttock pain where he had MRI done of the pelvis with findings of rectal fistula for over 3 days. He was transferred from outside facility for management of his rectal pain. Patient reports improvement of pain with pain medication. He denies fevers. Earlier I had ordered sitz bath. He had sitz bath once performed with some improvement of his rectal pain. Patient reports bleeding from the rectum. PAST MEDICAL HISTORY: See list and reviewed PAST SURGICAL HISTORY: See list and reviewed MEDICATIONS: See list and reviewed ALLERGIES: See list and reviewed SOCIAL HISTORY: See list and reviewed FAMILY HISTORY: See list and reviewed REVIEW OF ORGAN SYSTEMS: CONSTITUTIONAL: No fevers or chills. No recent weight loss. EYES: Denies any trouble with vision. No glasses. HEENT: No difficulties with hearing. No nosebleeds. No difficulty swallowing. RESPIRATORY: Remote tobacco abuse disorder. Has chronic obstructive pulmonary disease. Has obstructive sleep apnea. CARDIOVASCULAR: Cardiac catheterization with stent placement for coronary artery disease. Has atrial fibrillation. Has hyperlipidemia. Has peripheral vascular occlusive disease. GASTROINTESTINAL: History of rectal fissures. History of hemorrhoidectomy. Has motion sickness. Past alcohol abuse. Has gastroesophageal reflux disease. GENITOURINARY: Denies any blood in urine or increased urinary frequency. NEUROLOGICAL: Past cerebrovascular disease. MUSCULOSKELETAL: Has back pain, stiffness or joint arthritis. SKIN: No current skin cancer. No rash. PSYCHIATRIC: Generalized anxiety disorder, depressive disorder, post-traumatic stress disorder. ENDOCRINE: Denies current thyroid disorders. Denies any blood sugar glucose intolerance. HEME/LYMPHATIC: Denies any lumps and bumps around the neck. No recent deep venous thrombosis. ALLERGY/IMMUNOLOGY: No immunoglobulin therapy. No immune deficiencies. BREAST: Denies current breast lumps, pain or nipple discharge. PHYSICAL EXAM: VITALS: Reviewed CONSTITUTIONAL: Well developed and in no acute distress. EYES: Conjuctivae without sclera icterus. Extraocular movements grossly inta ct. HEAD, EARS, NOSE, THROAT: Moist buccal mucosa. Head is atraumatic, normocephalic. Hears conversational speech. No nasal drainage. NECK: Supple. No JV distention. No thyroidomegaly. RESPIRATORY: Non-labored respirations and equal bilateral excursions. No gross wheezes. CARDIOVASCULAR: Palpable 2+ radial pulses. ABDOMEN: Non-tender. LYMPH: No neck lymphadenopathy. MUSCULOSKELETAL: No clubbing cyanosis or edema SKIN: Warm and well perfused with good skin turgor. NEUROLOGIC: Cranial nerves II through XII grossly intact. No focal or lateralizing signs. PSYCH: Appropriate affect. Alert and oriented to person, place and time. Displays appropriate insight. CLINCAL LABS: Reviewed. WBC over 13,000 with leukocytosis. LFTs elevated. ASSESSMENT: 1. Left buttock pain 2. Anal fistula 3. Peripheral vascular occlusive disease 4. COPD 5. Coronary artery disease. PLAN: 1. Will need CT scan/MRI uploaded from outside facility for further assessment. 2. Patient may have spontaneous drainage without surgical invention with sitz bath's 3 times daily. 3. Patient okay to have regular diet this morning. 4. Additional findings pending CT scan. 5. Otherwise incision and drainage also reviewed. ADVANCE DIRECTIVE: CODE status in chart. Thank you for this kind consultation. Past Medical History Past Medical History: Atrial Fibrillation, COPD, CVA/TIA, GERD/Reflux, Hyperlipidemia, Hypertension, Osteoarthritis (OA), Pneumonia, Sleep Apnea/CPAP/BIPAP, Vascular Disorder Additional Past Medical History / Comment(s): Pt recently admitted to [facility] on 09/25/19 with NSTEMI/urinary retention with law/generalized lower abdominal pain thought to possibly be mild colitis, R pulmonary consolidation, possible R hip tissue cellulitis. 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, PVD, chronic low back pain/DDD/scoliosis, cervical pain, bilateral hip pain,chronic lower extremity edema, sinus issues, hiatal hernia, PVD History of Any Multi-Drug Resistant Organisms: None Reported Past Surgical History: Adenoidectomy, Cholecystectomy, Heart Catheterization With Stent, Orthopedic Surgery, Tonsillectomy Additional Past Surgical History / Comment(s): 09/26/19 PCI with 2 stents, 2010 L leg surgery and pt thinks he has a loly, R radial head fracture with surgery x2, deviated septum surgery, EGD, colonoscopy, rectal fissure repair, hemorrhoidectomy Past Anesthesia/Blood Transfusion Reactions: No Reported Reaction, Motion Sickness Additional Past Anesthesia/Blood Transfusion Reaction / Comm: vertigo. Date of Last Stent Placement:: 09/26/2019 Past Psychological History: Anxiety, Depression, PTSD Additional Psychological History / Comment(s): Pt resides alone with a cat. He states he was to have home care after last hospitalization discharge but never received contact. Pt uses a cane. He drives. He served in the [employer]. He is disabled. 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 Pt used to smoke 1 packper day now smokes 1 pack per month Past Drug Use History: Marijuana Additional Drug Use History / Comment(s): Pt states he quit smoking marijuana for years but in the past few years he has started to smoke it on a rare basis. - Past Family History Father Additional Family Medical History / Comment(s): father in airplane crash when in [place]. pt only knows that alcoholism ran in his family Brother Family Medical History: Cancer Additional Family Medical History / Comment(s): Pancreatic Cancer Mother History Unknown: Yes Family Medical History: Diabetes Mellitus Additional Family Medical History / Comment(s): Mother would not talk about her health. Medications and Allergies Home Medications Medication Instructions Recorded Confirmed Type Aspirin EC [Ecotrin Low Dose] 81 mg PO DAILY 07/28/24 07/28/24 History Allergies Allergy/AdvReac Type Severity Reaction Status Date / Time hydromorphone [From Dilaudid] AdvReac Vomiting Verified 07/28/24 15:38 Surgical - Exam Vital Signs Temp Pulse Resp BP Pulse Ox 98.0 F 78 20 118/69 91 L 07/28/24 13:53 07/28/24 13:53 07/28/24 13:53 07/28/24 13:53 07/28/24 13:53 Results - Labs 08/01/24 03:37 08/01/24 03:37
[2024-07-29 08:48] LABS: Basophils # (A) 0.03 X 10*3/uL (0.00-0.10); Basophils % (A) 0.2 %; Eosinophils # (A) 0.05 X 10*3/uL (0.04-0.35); Eosinophils % (A) 0.4 %; HCT 43.2 % (39.6-50.0); HGB 14.2 g/dL (13.0-17.0); INR 1.01 sec (0.93-1.11); Lymphocytes # (A) 2.41 X 10*3/uL (0.90-5.00); Lymphocytes % (A) 17.3 %; MCH 31.1 pg (27.0-32.0); MCHC 32.9 g/dL (32.0-37.0); MCV 94.7 FL (80.0-97.0); Mean Platelet Volume 11.2 FL (9.5-12.2); Monocytes % (A) 9.3 %; NRBC Per 100 WBC 0 X 10*3/uL (0.00-0.01); Neutrophils # (A) 10.13 X 10*3/uL (1.80-7.70); Neutrophils % (A) 72.4 %; Platelet Count 259 X 10*3/uL (140-440); Prothrombin Time 10.9 sec (9.9-11.9); RBC 4.56 X 10*6/uL (4.40-5.60); RDW 14.5 % (11.5-14.5); WBC 13.97 X 10*3/uL (4.50-10.00)
[2024-07-29 08:58] LABS: ALT 74 U/L (10-49); AST 62 U/L (14-35); Albumin 3.7 g/dL (3.8-4.9); Albumin/Globulin Ratio 1.76 Ratio (1.60-3.17); Alkaline Phosphatase 175 U/L (41-126); Blood Urea Nitrogen 22.5 mg/dL (9.0-27.0); Calcium 8.5 mg/dL (8.7-10.3); Carbon Dioxide 27.7 mmol/L (21.6-31.8); Chloride 101 mmol/L (96-109); Globulin 2.1 g/dL (1.6-3.3); Glucose 101 mg/dL (70-110); Potassium 4.2 mmol/L (3.5-5.5); Sodium 137 mmol/L (135-145); Total Bilirubin 0.6 mg/dL (0.3-1.2); Total Protein 5.8 g/dL (6.2-8.2)
[2024-07-29] MEDS: PANTOPRAZOLE 40 MG/10 ML VIAL IV SCH (09:49)
[2024-07-29] MEDS: HEPARIN SODIUM,PORCINE 5,000 UNIT/ML 1 ML VIAL SQ SCH (16:10)
--- NOTE | 2024-07-30 02:51 | PN ---
PROGRESS NOTE DATE OF SERVICE: 07/29/2024 SUBJECTIVE: This is a 74-year-old gentleman, who was referred from elsewhere with possible rectal fistula with possible abscess with significant drainage. The patient on broad spectrum IV antibiotics. Dr. Landis is following the patient after reviewing the CT scan. PAST MEDICAL HISTORY: Reviewed. REVIEW OF SYSTEMS: A 14-point review is negative except as mentioned earlier. CURRENT MEDICATIONS: Reviewed include Zosyn. PHYSICAL EXAMINATION: VITAL SIGNS: Pulse is 75, blood pressure 119/69, respirations 14. HEENT: Conjunctivae normal. NECK: No JVD. CARDIOVASCULAR: S1, S2. RESPIRATIONS: Breath sounds diminished at the bases. No rhonchi. No crackles. ABDOMEN: Soft, obese. LEGS: No edema. NERVOUS SYSTEM: Nonfocal. LABORATORY DATA: WBC 13.9. LFTs elevated. ASSESSMENT: 1. 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 2. Elevated WBC. 3. Elevated LFTs. 4. Chronic obstructive pulmonary disease. 5. Atrial fibrillation. 6. Hypertension. 7. Hyperlipidemia. 8. Multiple complex medical issues. 9. History of coronary artery disease stent. RECOMMENDATIONS AND DISCUSSION: Recommend to continue current management and continue symptomatic treatment. Otherwise, continue with antibiotics. Follow the cultures. Closely follow with Dr. Landis. Further recommendations to follow. MMODL / IJN: [id number] /
--- NOTE | 2024-07-30 05:33 | P.CONS ---
History of Present Illness - Reason for Consult Consult date: 07/29/24 Rectal fistula Requesting physician: Celestina Xavier - Chief Complaint Left perirectal/gluteal area pain and swelling x days - History of Present Illness Patient is a 74-year-old male with a past medical history significant for Atrial Fibrillation, COPD, CVA/TIA, GERD/Reflux, Hyperlipidemia, Hypertension, Osteoarthritis (OA), Pneumonia, Sleep Apnea/CPAP/BIPAP, Vascular Disorder was transferred from [facility] with the patient was diagnosed with a possible left perirectal abscess/fistula patient had been complaining of increasing pain and discomfort to the left perirectal/gluteal area for the last few days patient mention it started as a small area of pimple or swelling that has progressively decreased in size becoming more painful describing the pain to be mostly throbbing moderate intensity without radiation and did have some bloodstained drainage he did have a MRI done at that facility which usually shows phlegmon fistula and possible abscess for the patient has been transferred to [facility] for surgical evaluation on prese ntation to the hospital the patient was afebrile and no fever have been called subsequently patient was not tachycardic hypotensive mildly hypoxic but not requiring any supplemental oxygen he did have a white count of 13.97 with a left shift creatinine is 1.0 liver isms are mildly elevated patient has been started on Zosyn infectious disease was consulted for further management of antibiotic therapy Review of Systems Positive point and negatives has been mentioned in the HPI, complete review of systems was performed and all other systems are negative Past Medical History Past Medical History: Atrial Fibrillation, COPD, CVA/TIA, GERD/Reflux, Hyperlipidemia, Hypertension, Osteoarthritis (OA), Pneumonia, Sleep Apnea/CPAP/BIPAP, Vascular Disorder Additional Past Medical History / Comment(s): Pt recently admitted to [facility] on 09/25/19 with NSTEMI/urinary retention with law/generalized lower abdominal pain thought to possibly be mild colitis, R pulmonary consolidation, possible R hip tissue cellulitis. 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, PVD, chronic low back pain/DDD/scoliosis, cervical pain, bilateral hip pain,chronic lower extremity edema, sinus issues, hiatal hernia, PVD History of Any Multi-Drug Resistant Organisms: None Reported Past Surgical History: Adenoidectomy, Cholecystectomy, Heart Catheterization With Stent, Orthopedic Surgery, Tonsillectomy Additional Past Surgical History / Comment(s): 09/26/19 PCI with 2 stents, 2010 L leg surgery and pt thinks he has a loly, R radial head fracture with surgery x2, deviated septum surgery, EGD, colonoscopy, rectal fissure repair, hemorrhoidectomy Past Anesthesia/Blood Transfusion Reactions: No Reported Reaction, Motion Sickness Additional Past Anesthesia/Blood Transfusion Reaction / Comm: vertigo. Date of Last Stent Placement:: 09/26/2019 Past Psychological History: Anxiety, Depression, PTSD Additional Psychological History / Comment(s): Pt resides alone with a cat. He states he was to have home care after last hospitalization discharge but never received contact. Pt uses a cane. He drives. He served in the [employer]. He is disabled. 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 Pt used to smoke 1 packper day now smokes 1 pack per month Past Drug Use History: Marijuana Additional Drug Use History / Comment(s): Pt states he quit smoking marijuana for years but in the past few years he has started to smoke it on a rare basis. - Past Family History Father Additional Family Medical History / Comment(s): father in airplane crash when in [place]. pt only knows that alcoholism ran in his family Brother Family Medical History: Cancer Additional Family Medical History / Comment(s): Pancreatic Cancer Mother History Unknown: Yes Family Medical History: Diabetes Mellitus Additional Family Medical History / Comment(s): Mother would not talk about her health. Medications and Allergies Home Medications Medication Instructions Recorded Confirmed Type Aspirin EC [Ecotrin Low Dose] 81 mg PO DAILY 07/28/24 07/28/24 History Allergies Allergy/AdvReac Type Severity Reaction Status Date / Time hydromorphone [From Dilaudid] AdvReac Vomiting Verified 07/28/24 15:38 Physical Exam Vitals: Vital Signs Temp Pulse Pulse Resp BP BP Pulse Ox 07/29/24 08:14 97 07/29/24 08:13 98.4 F 75 16 127/58 93 L 07/29/24 02:00 98.6 F 67 16 113/69 95 07/28/24 20:45 76 11/14/24 19:30 98.3 F 76 15 144/82 96 07/28/24 18:34 98.2 F 76 17 151/76 95 07/28/24 17:56 74 20 143/74 95 07/28/24 16:49 82 20 106/51 95 07/28/24 13:53 98.0 F 78 20 118/69 91 L Intake and Output 07/28/24 07/29/24 07/29/24 22:59 06:59 14:59 Other: Voiding Method Toilet Urinal # Voids 3 Weight 86.183 kg GENERAL DESCRIPTION: Elderly male lying in bed, no distress. No tachypnea or accessory muscle of respiration use. HEENT: Shows Pallor , no scleral icterus. Oral mucous membrane is dry. No pharyngeal erythema or thrush NECK: Trachea central, no thyromegaly. LUNGS: Unlabored breathing. Decreased intensity breath sounds always HEART: S1, S2, regular rate and rhythm. No loud murmur ABDOMEN: Soft, no tenderness , patient did have area of swelling duration to the left gluteal/perirectal area with some bloodstained drainage EXTREMITIES: No edema of feet. SKIN: No rash, no masses palpable. NEUROLOGICAL: The patient is awake, alert, oriented x3, mood and affect normal. Results CBC & Chem 7: 07/29/24 03:24 07/29/24 03:24 Labs: Abnormal Lab Results - Last 24 Hours (Table) 07/29/24 07/29/24 Range/Units 03:24 03:24 WBC 13.97 H (4.50-10.00) X 10*3/uL Immature Gran # 0.05 H (0.00-0.04) X 10*3/uL Neutrophils # 10.13 H (1.80-7.70) X 10*3/uL Monocytes # 1.30 H (0.20-1.00) X 10*3/uL BUN/Creatinine Ratio 22.50 H (12.00-20.00) Ratio Calcium 8.5 L (8.7-10.3) mg/dL AST 62 H (14-35) U/L ALT 74 H (10-49) U/L Alkaline Phosphatase 175 H (41-126) U/L Total Protein 5.8 L (6.2-8.2) g/dL Albumin 3.7 L (3.8-4.9) g/dL Assessment and Plan (1) Perirectal abscess Current Visit: Yes Status: Acute Code(s): K61.1 - RECTAL ABSCESS SNOMED Code(s): 72448248 (2) Leukocytosis Current Visit: Yes Status: Acute Code(s): D72.829 - ELEVATED WHITE BLOOD CELL COUNT, UNSPECIFIED SNOMED Code(s): 133758902 Plan: 1patient presented to hospital with increasing pain and swelling and drainage to the left perirectal/gluteal area concerning for possible abscess or fistula on the basis of the MRI that was completed at the outside facility and will need to cover for the enteric gram-negative both aerobes and anaerobes to be the l ikely pathogen 2await surgical exploration of the area to see the extent of the abscess/fistula 3Zosyn 3.375 g Q8 hourly medication provide adequately biotic coverage while waiting for the culture to finalize and workup to be completed We will follow on clinical condition and cultures to further adjust medication if needed Thank you for this consultation we will follow the patient along with you Dictation was produced using [employer] dictation software. please excuse any grammatical, word or spelling errors.
--- NOTE | 2024-07-30 08:47 | P.PN ---
Subjective Progress Note Date: 07/29/24 CHIEF COMPLAINT: Perirectal abscess HISTORY OF PRESENT ILLNESS: The patient is a 74-year-old male transferred from [facility] after MRI obtained pelvic exam demonstrated complicated perirectal abscess. Patient is being reevaluated this evening after antibiotics including sitz bath. He reports intermittent rectal bleeding. He recent colonoscopy. ROS: No reports of nausea and vomiting. No fevers or chills. No new chest pain. No productive sputum PHYSICAL EXAM: VITAL SIGNS: Reviewed CONSTITUTIONAL: Well developed and in no acute distress. EYES: Conjuctivae without sclera icterus. Extraocular movements grossly intact. HEAD, EARS, NOSE, THROAT: Moist buccal mucosa. Head is atraumatic, normocephalic. Hears conversational speech. No nasal drainage. RESPIRATORY: Non-labored respirations and equal bilateral excursions. CARDIOVASCULAR: Palpable 2+ radial pulses. ABDOMEN: Nontender. MUSCULOSKELETAL: No gross deformity of the lower extremities noted. No clubbing. No cyanosis. SKIN: Good skin turgor. Well perfused. NEUROLOGIC: Cranial nerves II through XII grossly intact. No focal or lateralizing signs. PSYCH: Appropriate affect. Alert and oriented to person, place and time. CLINICAL LABS: Reviewed. WBC over 13,000. STUDIES: Outside MRI from [facility] uploaded into the current system. MRI of the pelvis independently reviewed demonstrates left-sided subcutaneous perirectal abscess. Abscess does not violate the levator muscles. This is my independent interpretation. Overall size of abscess less than 4 cm. REPORT: MRI report reviewed with concerning fistula. ASSESSMENT: 1. Perirectal abscess PLAN: 1. Patient had been n.p.o. for lunch however got a tray and ate his entire meal. Surgery canceled as a result. 2. Patient also does not want surgery as he reports feeling much better. 3. Continue conservative management. 4. No surgical intervention per patient request. 5. Continue sitz bath's 3 times daily. Objective - Vital Signs Vital signs: Vital Signs Temp 98.2 F 07/29/24 19:24 Pulse 67 07/29/24 19:24 Resp 17 07/29/24 19:24 BP 129/79 07/29/24 19:24 Pulse Ox 93 L 07/29/24 19:24 FiO2 Intake & Output 07/29/24 07/29/24 07/30/24 06:59 18:59 06:59 Other: Voiding Method Toilet Toilet Urinal Urinal # Voids 3 3 - Labs CBC & Chem 7: 07/29/24 03:24 07/29/24 03:24 Labs: Abnormal Lab Results - Last 24 Hours (Table) 07/29/24 07/29/24 Range/Units 03:24 03:24 WBC 13.97 H (4.50-10.00) X 10*3/uL Immature Gran # 0.05 H (0.00-0.04) X 10*3/uL Neutrophils # 10.13 H (1.80-7.70) X 10*3/uL Monocytes # 1.30 H (0.20-1.00) X 10*3/uL BUN/Creatinine Ratio 22.50 H (12.00-20.00) Ratio Calcium 8.5 L (8.7-10.3) mg/dL AST 62 H (14-35) U/L ALT 74 H (10-49) U/L Alkaline Phosphatase 175 H (41-126) U/L Total Protein 5.8 L (6.2-8.2) g/dL Albumin 3.7 L (3.8-4.9) g/dL
[2024-07-30] MEDS ORDERED: ASPIRIN 81 MG PO SCH (09:00)
[2024-07-30 09:55] LABS: Basophils # (A) 0.03 X 10*3/uL (0.00-0.10); Basophils % (A) 0.4 %; Eosinophils # (A) 0.18 X 10*3/uL (0.04-0.35); Eosinophils % (A) 2.3 %; HCT 39.7 % (39.6-50.0); HGB 12.6 g/dL (13.0-17.0); Lymphocytes # (A) 1.86 X 10*3/uL (0.90-5.00); Lymphocytes % (A) 24.3 %; MCH 30.4 pg (27.0-32.0); MCHC 31.7 g/dL (32.0-37.0); MCV 95.7 FL (80.0-97.0); Monocytes # (A) 0.98 X 10*3/uL (0.20-1.00); Monocytes % (A) 12.8 %; NRBC Per 100 WBC 0 X 10*3/uL (0.00-0.01); Neutrophils # (A) 4.59 X 10*3/uL (1.80-7.70); Neutrophils % (A) 59.8 %; Platelet Count 255 X 10*3/uL (140-440); RBC 4.15 X 10*6/uL (4.40-5.60); RDW 14.5 % (11.5-14.5); WBC 7.67 X 10*3/uL (4.50-10.00)
[2024-07-30 10:01] LABS: ALT 54 U/L (10-49); AST 38 U/L (14-35); Albumin 3.2 g/dL (3.8-4.9); Alkaline Phosphatase 151 U/L (41-126); BUN/Creat Ratio 23.33 Ratio (12.00-20.00); Calcium 8.1 mg/dL (8.7-10.3); Chloride 105 mmol/L (96-109); Glucose 99 mg/dL (70-110); Potassium 4.5 mmol/L (3.5-5.5); Sodium 140 mmol/L (135-145); Total Bilirubin 0.3 mg/dL (0.3-1.2); Total Protein 5.2 g/dL (6.2-8.2)
--- NOTE | 2024-07-30 15:38 | P.PN ---
Subjective Progress Note Date: 07/30/24 No acute events overnight. No nausea or vomiting. No worsening rectal pain. Tolerating diet without issue. No incontinence. Endorses bowel movements. No melena or hematochezia. He states that he has continued drainage from his rectal abscess site. Objective - Vital Signs Vital signs: Vital Signs Temp 98.5 F 07/30/24 13:17 Pulse 66 07/30/24 13:17 Resp 18 07/30/24 13:17 BP 136/78 07/30/24 13:17 Pulse Ox 97 07/30/24 13:17 FiO2 Intake & Output 07/29/24 07/30/24 07/30/24 18:59 06:59 18:59 Other: Voiding Method Toilet Toilet Toilet Urinal # Voids 3 1 - Exam Gen: AxO, NAD Pulm: non-labored respirations Abd: soft, non-tender. Non-distended. No guarding/rebound/rigidity Rectal: deferred by patient Extrem: no edema seen - Labs CBC & Chem 7: 07/30/24 05:38 07/30/24 05:38 Labs: Abnormal Lab Results - Last 24 Hours (Table) 07/30/24 07/30/24 Range/Units 05:38 05:38 RBC 4.15 L (4.40-5.60) X 10*6/uL Hgb 12.6 L (13.0-17.0) g/dL MCHC 31.7 L (32.0-37.0) g/dL BUN/Creatinine Ratio 23.33 H (12.00-20.00) Ratio Calcium 8.1 L (8.7-10.3) mg/dL AST 38 H (14-35) U/L ALT 54 H (10-49) U/L Alkaline Phosphatase 151 H (41-126) U/L Total Protein 5.2 L (6.2-8.2) g/dL Albumin 3.2 L (3.8-4.9) g/dL Microbiology - Last 24 Hours (Table) 07/29/24 19:40 Gram Stain - Preliminary Buttock Assessment and Plan Assessment: Patient is a 74-year-old male with rectal abscess, now with spontaneous drainage Plan: -Diet as tolerated -As needed pain and nausea control -Continue dressings of rectal abscess as needed -IV antibiotic therapy -No acute surgical intervention Colten Wilkerson M.D. General Surgery
[2024-07-30] MEDS: amLODIPine 10 MG TAB PO SCH (15:41)
[2024-07-31] MEDS: PIPERACILLIN-TAZOBACTAM 3.375 GM in SODIUM CHLORIDE 0.9% 100 ML IVPB SCH (02:15)
--- NOTE | 2024-07-31 05:39 | PN ---
PROGRESS NOTE DATE OF SERVICE: 07/30/2024 SUBJECTIVE: This is a 74-year-old gentleman admitted with rectal abscess and possible rectal fistula, referred from elsewhere and is on broad-spectrum IV antibiotics. The patient had drainage from the rectal area. Final cultures are pending at this time. The patient is on empiric antibiotics. Pain management is also being carried out. PAST MEDICAL HISTORY: Reviewed. REVIEW OF SYSTEMS: A 14-point review is negative except as mentioned earlier. CURRENT MEDICATIONS: Reviewed. PHYSICAL EXAMINATION: VITAL SIGNS: Pulse is 71, blood pressure 160/90, respirations 18. HEENT: Conjunctivae normal. CARDIOVASCULAR: S1, S2. RESPIRATIONS: Breath sounds diminished at the bases. ABDOMEN: Soft. LABORATORY DATA: Reviewed. ASSESSMENT: 1. 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 2. Elevated WBC. 3. Elevated LFTs. 4. Chronic obstructive pulmonary disease. 5. Hypertension. 6. Atrial fibrillation. 7. Multiple complex medical issues. RECOMMENDATIONS: Recommend to continue current management and continue symptomatic treatment. Continue with antibiotics. Repeat labs. Also, recommend to stop the IV fluids. Monitor blood pressure closely. Closely follow with Surgery and Infectious Disease. Await cultures. Further recommendations to follow. MMODL / IJN: [id number] /
[2024-07-31 09:50] LABS: ALT 43 U/L (10-49); AST 28 U/L (14-35); Albumin 3.4 g/dL (3.8-4.9); Alkaline Phosphatase 134 U/L (41-126); BUN/Creat Ratio 20.62 Ratio (12.00-20.00); Blood Urea Nitrogen 16.5 mg/dL (9.0-27.0); Calcium 8.4 mg/dL (8.7-10.3); Carbon Dioxide 26.1 mmol/L (21.6-31.8); Chloride 106 mmol/L (96-109); Glucose 106 mg/dL (70-110); Potassium 4.5 mmol/L (3.5-5.5); Sodium 141 mmol/L (135-145); Total Bilirubin <0.2 mg/dL (0.3-1.2); Total Protein 5.4 g/dL (6.2-8.2)
[2024-07-31 10:00] LABS: Basophils # (A) 0.05 X 10*3/uL (0.00-0.10); Basophils % (A) 0.8 %; Eosinophils # (A) 0.11 X 10*3/uL (0.04-0.35); Eosinophils % (A) 1.7 %; HCT 39.9 % (39.6-50.0); HGB 12.6 g/dL (13.0-17.0); Lymphocytes % (A) 35.9 %; MCH 30.5 pg (27.0-32.0); MCHC 31.6 g/dL (32.0-37.0); MCV 96.6 FL (80.0-97.0); Mean Platelet Volume 11.4 FL (9.5-12.2); Monocytes # (A) 0.71 X 10*3/uL (0.20-1.00); Monocytes % (A) 11.1 %; NRBC Per 100 WBC 0 X 10*3/uL (0.00-0.01); Neutrophils # (A) 3.21 X 10*3/uL (1.80-7.70); Neutrophils % (A) 50.2 %; Platelet Count 244 X 10*3/uL (140-440); RBC 4.13 X 10*6/uL (4.40-5.60); RDW 14.4 % (11.5-14.5)
[2024-07-31 10:01] LABS: Appearance,Urine Clear (Clear); Bilirubin,Urine Negative (Negative); Blood,Urine Negative (Negative); Color,Urine Colorless; Glucose,Urine (UA) Trace (Negative); Ketones,Urine Negative (Negative); Leukocyte Esterase,Urine Negative (Negative); Nitrite,Urine Negative (Negative); Protein,Urine Negative (Negative); Specific Gravity,Urine 1.019 (1.001-1.035); Urobilinogen,Urine <2.0 mg/dL (<2.0)
--- NOTE | 2024-07-31 12:15 | P.PN ---
Subjective Progress Note Date: 07/31/24 Patient states his pararectal pain is stable. Patient is complaining about the nurses changing his IV yesterday. I discussed with him that he should discuss this with the patient rep Ulises. On exam vital signs appear stable. Abdomen is soft. Status post drainage of peritoneal abscess. Patient was he received local wound care and supportive care. Objective - Vital Signs Vital signs: Vital Signs Temp 97.5 F L 07/31/24 07:03 Pulse 71 07/31/24 09:02 Resp 18 07/31/24 09:02 BP 148/77 07/31/24 07:03 Pulse Ox 98 07/31/24 07:03 FiO2 Intake & Output 07/30/24 07/31/24 07/31/24 18:59 06:59 18:59 Other: Voiding Method Toilet Toilet Toilet # Voids 2 # Bowel Movements 1 - Labs CBC & Chem 7: 07/31/24 04:00 07/31/24 04:00 Labs: Abnormal Lab Results - Last 24 Hours (Table) 07/31/24 07/31/24 07/31/24 Range/Units 04:00 04:00 09:49 RBC 4.13 L (4.40-5.60) X 10*6/uL Hgb 12.6 L (13.0-17.0) g/dL MCHC 31.6 L (32.0-37.0) g/dL BUN/Creatinine Ratio 20.62 H (12.00-20.00) Ratio Calcium 8.4 L (8.7-10.3) mg/dL Total Bilirubin <0.2 L (0.3-1.2) mg/dL Alkaline Phosphatase 134 H (41-126) U/L Total Protein 5.4 L (6.2-8.2) g/dL Albumin 3.4 L (3.8-4.9) g/dL Urine Glucose (UA) Trace H (Negative) Microbiology - Last 24 Hours (Table) 07/29/24 19:40 Gram Stain - Preliminary Buttock Wound Culture - Preliminary
--- NOTE | 2024-07-31 16:20 | P.PN ---
Subjective Progress Note Date: 07/30/24 Principal diagnosis: Reason for follow-up is left perirectal abscess Patient is a 74-year-old male with a past medical history significant for Atrial Fibrillation, COPD, CVA/TIA, GERD/Reflux, Hyperlipidemia, Hypertension, Osteoarthritis (OA), Pneumonia, Sleep Apnea/CPAP/BIPAP, Vascular Disorder was transferred from [facility] with the patient was diagnosed with a possible left perirectal abscess/fistula. On today's evaluation that is 07/30/2024, Patient is afebrile this morning patient denies having any chest pain shortness of breath or cough, the patient is currently on room air, patient denies any abdominal pain and pain to the left gluteal area has decreased in intensity. Patient white count 7.67, creatinine 0.9 Objective - Vital Signs Vital signs: Vital Signs Temp 98.5 F 07/30/24 13:17 Pulse 66 07/30/24 13:17 Resp 18 07/30/24 13:17 BP 136/78 07/30/24 13:17 Pulse Ox 97 07/30/24 13:17 FiO2 Intake & Output 07/30/24 07/30/24 07/31/24 06:59 18:59 06:59 Other: Voiding Method Toilet Toilet # Voids 2 # Bowel Movements 1 - Exam GENERAL DESCRIPTION: An elderly male lying in bed in no distress RESPIRATORY SYSTEM: Unlabored breathing , decreased breath sounds at bases HEART: S1 S2 regular rate and rhythm , ABDOMEN: Soft , no tenderness EXTREMITIES: No edema feet - Labs CBC & Chem 7: 07/31/24 04:00 07/31/24 04:00 Labs: Abnormal Lab Results - Last 24 Hours (Table) 07/30/24 07/30/24 Range/Units 05:38 05:38 RBC 4.15 L (4.40-5.60) X 10*6/uL Hgb 12.6 L (13.0-17.0) g/dL MCHC 31.7 L (32.0-37.0) g/dL BUN/Creatinine Ratio 23.33 H (12.00-20.00) Ratio Calcium 8.1 L (8.7-10.3) mg/dL AST 38 H (14-35) U/L ALT 54 H (10-49) U/L Alkaline Phosphatase 151 H (41-126) U/L Total Protein 5.2 L (6.2-8.2) g/dL Albumin 3.2 L (3.8-4.9) g/dL Microbiology - Last 24 Hours (Table) 07/29/24 19:40 Gram Stain - Preliminary Buttock Assessment and Plan (1) Perirectal abscess Current Visit: Yes Status: Acute Code(s): K61.1 - RECTAL ABSCESS SNOMED Code(s): 72694479 (2) Leukocytosis Current Visit: Yes Status: Acute Code(s): D72.829 - ELEVATED WHITE BLOOD CELL COUNT, UNSPECIFIED SNOMED Code(s): 163553178 Plan: 1patient presented to hospital with increasing pain and swelling and drainage to the left perirectal/gluteal area concerning for possible abscess or fistula on the basis of the MRI that was completed at the outside facility and will need to cover for the enteric gram-negative both aerobes and anaerobes to be the likely pathogen 2patient initial surgical area was canceled as the patient ate his lunch and subsequently refusing drainage procedure as documented by the surgical note 3patient to continue with Zosyn 3.375 g Q8 hourly while waiting for the culture to finalize Dictation was produced using [employer] dictation software. please excuse any grammatical, word or spelling errors. Time with Patient: Less than 30
--- NOTE | 2024-07-31 16:21 | P.PN ---
Subjective Progress Note Date: 07/31/24 Principal diagnosis: Reason for follow-up is left perirectal abscess Patient is a 74-year-old male with a past medical history significant for Atrial Fibrillation, COPD, CVA/TIA, GERD/Reflux, Hyperlipidemia, Hypertension, Osteoarthritis (OA), Pneumonia, Sleep Apnea/CPAP/BIPAP, Vascular Disorder was transferred from [facility] with the patient was diagnosed with a possible left perirectal abscess/fistula. On today's evaluation that is 07/31/2024,the patient denies any fever or any chills, patient is breathing comfortably on room air, the patient denies chest pain shortness of breath and no significant cough, patient perirectal discomfort has decreased intensity no nausea no vomiting has been complaining of some diarrhea. Patient white count 6.40, creatinine 0.8 cultures are currently pending Objective - Vital Signs Vital signs: Vital Signs Temp 97.5 F L 07/31/24 07:03 Pulse 71 07/31/24 09:02 Resp 18 07/31/24 09:02 BP 148/77 07/31/24 07:03 Pulse Ox 98 07/31/24 07:03 FiO2 Intake & Output 07/30/24 07/31/24 07/31/24 18:59 06:59 18:59 Other: Voiding Method Toilet Toilet Toilet # Voids 2 # Bowel Movements 1 - Exam GENERAL DESCRIPTION: An elderly male lying in bed in no distress RESPIRATORY SYSTEM: Unlabored breathing , decreased breath sounds at bases HEART: S1 S2 regular rate and rhythm , ABDOMEN: Soft , no tenderness EXTREMITIES: No edema feet - Labs CBC & Chem 7: 07/31/24 04:00 07/31/24 04:00 Labs: Abnormal Lab Results - Last 24 Hours (Table) 07/31/24 07/31/24 07/31/24 Range/Units 04:00 04:00 09:49 RBC 4.13 L (4.40-5.60) X 10*6/uL Hgb 12.6 L (13.0-17.0) g/dL MCHC 31.6 L (32.0-37.0) g/dL BUN/Creatinine Ratio 20.62 H (12.00-20.00) Ratio Calcium 8.4 L (8.7-10.3) mg/dL Total Bilirubin <0.2 L (0.3-1.2) mg/dL Alkaline Phosphatase 134 H (41-126) U/L Total Protein 5.4 L (6.2-8.2) g/dL Albumin 3.4 L (3.8-4.9) g/dL Urine Glucose (UA) Trace H (Negative) Microbiology - Last 24 Hours (Table) 07/29/24 19:40 Gram Stain - Preliminary Buttock Wound Culture - Preliminary Assessment and Plan (1) Perirectal abscess Current Visit: Yes Status: Acute Code(s): K61.1 - RECTAL ABSCESS SNOMED Code(s): 61713525 (2) Leukocytosis Current Visit: Yes Status: Acute Code(s): D72.829 - ELEVATED WHITE BLOOD CELL COUNT, UNSPECIFIED SNOMED Code(s): 479410340 Plan: 1patient presented to hospital with increasing pain and swelling and drainage to the left perirectal/gluteal area concerning for possible abscess or fistula on the basis of the MRI that was completed at the outside facility and will need to cover for the enteric gram-negative both aerobes and anaerobes to be the likely pathogen 2patient initial surgical area was canceled as the patient ate his lunch and subsequently refusing drainage procedure as documented by the surgical note 3patient is afebrile the patient white count is normalized, to continue with Zosyn 3.375 g Q8 hourly while waiting for the culture to finalize Dictation was produced using [employer] dictation software. please excuse any grammatical, word or spelling errors. Time with Patient: Less than 30
--- NOTE | 2024-08-01 03:54 | PN ---
PROGRESS NOTE DATE OF SERVICE: 07/31/2024 This gentleman admitted with rectal fistula and possible perirectal abscess and elevated WBC. The patient is on IV antibiotics. Surgery is following the patient closely considering possible surgery. Otherwise, no chest pain. No palpitation. Infectious Disease is following the patient closely. PAST MEDICAL HISTORY: Reviewed. REVIEW OF SYSTEMS: 14-point review is negative except as mentioned earlier. CURRENT MEDICATIONS: Noted. PHYSICAL EXAMINATION: VITAL SIGNS: Pulse is 77, blood pressure 158/80, respirations 18. HEENT: Conjunctivae normal. NECK: No jugular venous distention. CARDIOVASCULAR: S1 and S2. RESPIRATIONS: Breath sounds diminished at the bases. ABDOMEN: Soft, obese. LEGS: No edema. LABORATORY DATA: Reviewed. ASSESSMENT: 1. 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 2. Elevated WBC. 3. Elevated LFTs. 4. Chronic obstructive pulmonary disease. 5. Hypertension. 6. Atrial fibrillation. 7. Multiple complex medical issues. RECOMMENDATIONS AND DISCUSSION: Recommend to continue current management and continue the antibiotics, symptomatic treatment. Repeat labs. Monitor blood pressure closely. The LFTs seems to be improving at this time. Otherwise, we will follow the cultures closely. Follow with Infectious Disease and Surgery. Prognosis guarded. DVT prophylaxis. Further recommendations to follow. MMODL / IJN: [id number] / LOVE
[2024-08-01 08:43] LABS: ALT 45 U/L (10-49); AST 32 U/L (14-35); Albumin 3.4 g/dL (3.8-4.9); Alkaline Phosphatase 131 U/L (41-126); BUN/Creat Ratio 12.56 Ratio (12.00-20.00); Blood Urea Nitrogen 11.3 mg/dL (9.0-27.0); Calcium 8.6 mg/dL (8.7-10.3); Carbon Dioxide 28.8 mmol/L (21.6-31.8); Chloride 103 mmol/L (96-109); Glucose 99 mg/dL (70-110); Potassium 4.3 mmol/L (3.5-5.5); Sodium 140 mmol/L (135-145); Total Bilirubin 0.3 mg/dL (0.3-1.2); Total Protein 5.4 g/dL (6.2-8.2)
[2024-08-01 08:47] LABS: Basophils # (A) 0.04 X 10*3/uL (0.00-0.10); Basophils % (A) 0.6 %; Eosinophils # (A) 0.15 X 10*3/uL (0.04-0.35); Eosinophils % (A) 2.3 %; HCT 41.1 % (39.6-50.0); HGB 13.2 g/dL (13.0-17.0); Lymphocytes % (A) 33.8 %; MCH 30.5 pg (27.0-32.0); MCHC 32.1 g/dL (32.0-37.0); MCV 94.9 FL (80.0-97.0); Mean Platelet Volume 11.2 FL (9.5-12.2); Monocytes # (A) 0.74 X 10*3/uL (0.20-1.00); Monocytes % (A) 11.4 %; NRBC Per 100 WBC 0 X 10*3/uL (0.00-0.01); Neutrophils # (A) 3.36 X 10*3/uL (1.80-7.70); Neutrophils % (A) 51.6 %; Platelet Count 287 X 10*3/uL (140-440); RBC 4.33 X 10*6/uL (4.40-5.60); RDW 13.9 % (11.5-14.5); WBC 6.51 X 10*3/uL (4.50-10.00)
--- NOTE | 2024-08-01 11:53 | P.PN ---
Subjective Progress Note Date: 08/01/24 CHIEF COMPLAINT: Perirectal abscess HISTORY OF PRESENT ILLNESS: The patient is a 74-year-old male transferred from [facility] after MRI obtained pelvic exam demonstrated complicated perirectal abscess. Patient reports his pain is improved. No fevers. White blood cell count has been trending downward after antibiotic management. Patient still complains of peritoneal pain and drainage however improving since his admission. ROS: No reports of nausea and vomiting. No fevers or chills. No new chest pain. No productive sputum PHYSICAL EXAM: VITAL SIGNS: Reviewed CONSTITUTIONAL: Well developed and in no acute distress. EYES: Conjuctivae without sclera icterus. Extraocular movements grossly intact. HEAD, EARS, NOSE, THROAT: Moist buccal mucosa. Head is atraumatic, normocephalic. Hears conversational speech. No nasal drainage. RESPIRATORY: Non-labored respirations and equal bilateral excursions. CARDIOVASCULAR: Palpable 2+ radial pulses. ABDOMEN: Nontender. MUSCULOSKELETAL: No gross deformity of the lower extremities noted. No clubbing. No cyanosis. SKIN: Good skin turgor. Well perfused. NEUROLOGIC: Cranial nerves II through XII grossly intact. No focal or latera lizing signs. PSYCH: Appropriate affect. Alert and oriented to person, place and time. RECTUM: Left buttock/perianal draining sinus identified without active purulence. No moderate cellulitis identified. CLINICAL LABS: Reviewed. WBC over 13,000 decreased to normal. MICRO: Reviewed with multiple organisms. ASSESSMENT: 1. Perirectal abscess PLAN: 1. Patient presents with complex peritoneal abscess however to assess resolution of draining sinus, pelvic CT with IV contrast ordered 2. Likely discharge pending antibiotic management and results of imaging studies. Objective - Vital Signs Vital signs: Vital Signs Temp 97.3 F L 08/01/24 07:50 Pulse 68 08/01/24 07:50 Resp 18 08/01/24 07:50 BP 132/71 08/01/24 07:50 Pulse Ox 94 L 08/01/24 10:48 FiO2 Intake & Output 07/31/24 08/01/24 08/01/24 18:59 06:59 18:59 Other: Voiding Method Toilet Toilet Toilet # Voids 4 4 # Bowel Movements 1 - Labs CBC & Chem 7: 08/01/24 03:37 08/01/24 03:37 Labs: Abnormal Lab Results - Last 24 Hours (Table) 08/01/24 08/01/24 Range/Units 03:37 03:37 RBC 4.33 L (4.40-5.60) X 10*6/uL Calcium 8.6 L (8.7-10.3) mg/dL Alkaline Phosphatase 131 H (41-126) U/L Total Protein 5.4 L (6.2-8.2) g/dL Albumin 3.4 L (3.8-4.9) g/dL Microbiology - Last 24 Hours (Table) 07/29/24 19:40 Anaerobic Culture - Final Anal Bacteroides thetaiotaomicron Eggerthella species 07/29/24 19:40 Gram Stain - Final Buttock Wound Culture - Final Corynebacterium striatum group
--- NOTE | 2024-08-01 14:08 | CT ---
EXAMINATION TYPE: CT pelvis w con CT DLP: 951.2 mGycm, Automated exposure control for dose reduction was used. DATE OF EXAM: 08/01/2024 1:46 PM COMPARISON: CT abdomen pelvis 10/15/2019, 09/28/2019, MRI pelvis 07/28/2024 CLINICAL INDICATION:Male, 74 years old with history of Complex perirectal/pelvic abscess; Complex per irectal/pelvic abscess TECHNIQUE: Standard CT of the pelvis following the administration of 100 cc of Isovue [address] material. Coronal and sagittal reformats were performed. FINDINGS: KIDNEYS: Partial visualization of bilateral renal cysts the largest within the inferior pole of the r ight kidney visualized measuring up to 4.1 cm. BLADDER: Unremarkable. Contrast demonstrated within the bladder on the delayed phase. REPRODUCTIVE: Coarse calcifications of the prostate gland are identified. BOWEL: There is some mild fat stranding involving the rectum. This is decreased from prior examinatio n. Enhancing tract extending from the posterior left perianal region to the left gluteal crease witho ut sizable fluid collection or internal gas (series 201, image 55). Scattered colonic diverticulosis without evidence for acute diverticulitis. The appendix is within normal limits. No evidence of bowel obstruction. PERITONEUM: No evidence of pneumoperitoneum or free fluid. VASCULATURE: Mild atherosclerotic calcifications are present throughout the abdominal aorta and its b ranches. No evidence of aortic aneurysm within the visualized portion of the distal abdominal aorta. Pelvic phleboliths. MUSCULOSKELETAL: No acute osseous abnormalities. Degenerative changes of the left SI joint with anter ior bridging. Multilevel degenerative disc disease and facet arthropathy. LYMPH NODES: No evidence for lymphadenopathy. SOFT TISSUE/ABDOMINAL WALL: Mild stranding changes within the anterior abdominal wall likely from med ication injection. Small fat filled bilateral inguinal hernias. IMPRESSION: Decreased perirectal inflammatory changes with enhancing tract extending from the posterior left para renal region to the left gluteal crease. This is consistent with a fistula as demonstrated on MRI. No distinct organized fluid collection identified. [facility], , 08/01/2024 2:06 PM
--- NOTE | 2024-08-01 21:32 | P.PN ---
Progress Note - Text Progress Note Date: 08/01/24 CT of the pelvis reviewed with findings of no drainable fluid collection. Findings reviewed with patient. No additional surgical intervention needed. May be discharged when medically stable.
--- NOTE | 2024-08-01 22:40 | P.PN ---
Subjective Progress Note Date: 08/01/24 This is a 74-year-old male who was recently sent from [facility] for further surgical evaluation with concerns of possible perirectal fistula versus abscess maintained on antibiotics with infectious disease and general surgery following. Patient's pain is improving and culture showing Corynebacterium and awaiting to discuss further with surgery as well as infectious disease regarding discharge planning. No immediate plans for surgical intervention and repeat CT of the pelvis is ordered per surgery and pending. Patient is afebrile and white count has normalized. Encouraged increase activity as tolerated Review of systems: Constitutional: No reports of fatigue, fever, or chills Cardiovascular: No reports of chest pain or palpitations Respiratory: No reports of shortness of breath or cough GI: No reports of nausea, no reports of vomiting, reports of some loose stools : No reports of dysuria or retention Neurovascular: No reports of generalized weakness All medications have been reviewed Active Medications Amlodipine Besylate (Amlodipine 10 Mg Tab) 10 mg PO DAILY [facility] Last Admin: 08/01/24 10:42 Dose: 10 mg Heparin Sodium (Porcine) (Heparin Sodium,Porcine 5,000 Unit/Ml 1 Ml Vial) 5,000 unit SQ Q12HR [facility] Last Admin: 08/01/24 21:59 Dose: 5,000 unit Piperacillin Sod/Tazobactam (Sod 3.375 gm/ Sodium Chloride) 100 mls @ 25 mls/hr IVPB Q8H [facility]; Protocol Last Admin: 08/01/24 17:15 Dose: 25 mls/hr Morphine Sulfate (Morphine Sulfate 4 Mg/Ml Syringe) 4 mg IVP Q4HR PRN PRN Reason: Pain Last Admin: 07/31/24 02:57 Dose: 4 mg Naloxone HCl (Naloxone 0.4 Mg/Ml 1 Ml Vial) 0.2 mg IV Q2M PRN PRN Reason: Opioid Reversal Pantoprazole Sodium (Pantoprazole 40 Mg/10 Ml Vial) 40 mg IV DAILY [facility] Last Admin: 08/01/24 10:42 Dose: 40 mg PHYSICAL EXAMINATION: GENERAL: The patient is alert and oriented x4, Well developed, well nourished. Elderly appearing, obese HEENT: Pupils are round and equally reacting to light. EOMI. no scleral icterus. No conjunctival pallor. Normocephalic, atraumatic. No pharyngeal erythema. No thyromegaly. CARDIOVASCULAR: S1 and S2 muffled PULMONARY: diminished breath sounds bilaterally with no wheezing or rhonchi noted. ABDOMEN: soft. Nontender on exam. obese. non-distended, normoactive bowel sounds. No palpable organomegaly. MUSCULOSKELETAL: No joint swelling or deformity. EXTREMITIES: No cyanosis, clubbing, or pedal edema. NEUROLOGICAL: Gross neurological examination did not reveal any focal deficits. SKIN: No rashes. Assessment: Rectal pain with drainage with concerns of possible perirectal abscess versus fistula as noted on imaging Leukocytosis, resolved Elevated LFTs, trending down Chronic obstructive pulmonary disease, not in exacerbation History of hypertension History of atrial fibrillation Obesity with a BMI 30.7 GI prophylaxis DVT prophylaxis Full code Plan: Recommend to continue with current medications and management per infectious disease and general surgery services. Repeat CT of the pelvis ordered and pending per surgery Patient is continued on IV antibiotics with infectious disease following, white count has normalized and culture showing Corynebacterium and awaiting to discuss further regarding discharge planning No immediate plans for surgical intervention recommending outpatient follow-up Home medications reviewed and resumed as appropriate Encouraged increase activity as tolerated Will discuss further with infectious disease regarding discharge planning and possible discharge within the next 24 hours Due to multiple complex medical issues, overall prognosis is guarded The impression and plan of care has been dictated by Michelle Isaacs, nurse practitioner as directed. Dr. Duc MD I have performed a history and examination and MDM of this patient, discussed the same with the dictator, and agree with the dictator's assessment and plan as written ,documented as a scribe. Based on total visit time, I have performed more than 50% of the visit. Any additional findings or plans will be noted. Objective - Vital Signs Vital signs: Vital Signs Temp 98.0 F 08/01/24 18:58 Pulse 80 08/01/24 18:58 Resp 20 08/01/24 18:58 BP 146/61 08/01/24 18:58 Pulse Ox 94 L 08/01/24 18:58 FiO2 Intake & Output 08/01/24 08/01/24 08/02/24 06:59 18:59 06:59 Other: Voiding Method Toilet Toilet # Voids 4 3 - Labs CBC & Chem 7: 08/01/24 03:37 08/01/24 03:37 Labs: Abnormal Lab Results - Last 24 Hours (Table) 08/01/24 08/01/24 Range/Units 03:37 03:37 RBC 4.33 L (4.40-5.60) X 10*6/uL Calcium 8.6 L (8.7-10.3) mg/dL Alkaline Phosphatase 131 H (41-126) U/L Total Protein 5.4 L (6.2-8.2) g/dL Albumin 3.4 L (3.8-4.9) g/dL Microbiology - Last 24 Hours (Table) 07/29/24 19:40 Anaerobic Culture - Final Anal Bacteroides thetaiotaomicron Eggerthella species 07/29/24 19:40 Gram Stain - Final Buttock Wound Culture - Final Corynebacterium striatum group
[2024-08-01] MEDS ORDERED: ACETAMINOPHEN TAB 325 MG TAB PO PRN (22:41)
[2024-08-02 01:15] VITALS: RESP 18
--- NOTE | 2024-08-02 08:30 | P.PN ---
Subjective Progress Note Date: 08/01/24 Principal diagnosis: Reason for follow-up is left perirectal abscess Patient is a 74-year-old male with a past medical history significant for Atrial Fibrillation, COPD, CVA/TIA, GERD/Reflux, Hyperlipidemia, Hypertension, Osteoarthritis (OA), Pneumonia, Sleep Apnea/CPAP/BIPAP, Vascular Disorder was transferred from [facility] with the patient was diagnosed with a possible left perirectal abscess/fistula. On today's evaluation that is 08/01/2024,the patient remains to be afebrile, patient is on room air not requiring supplemental oxygen and denies any shortness of breath no chest pain or cough.Patient denies having any nausea or vomiting, no abdominal pain did have some diarrhea however overall discomfort to the left perirectal area has decreased in intensity. Patient white count 6.51 creatinine 0.9 cultures are growing bacteroids and corynebacterium Objective - Vital Signs Vital signs: Vital Signs Temp 97.3 F L 08/01/24 07:50 Pulse 68 08/01/24 07:50 Resp 18 08/01/24 07:50 BP 132/71 08/01/24 07:50 Pulse Ox 98 08/01/24 07:50 FiO2 Intake & Output 07/31/24 08/01/24 08/01/24 18:59 06:59 18:59 Other: Voiding Method Toilet Toilet # Voids 4 4 # Bowel Movements 1 - Exam GENERAL DESCRIPTION: An elderly male lying in bed in no distress RESPIRATORY SYSTEM: Unlabored breathing , decreased breath sounds at bases HEART: S1 S2 regular rate and rhythm , ABDOMEN: Soft , no tenderness EXTREMITIES: No edema feet - Labs CBC & Chem 7: 08/01/24 03:37 08/01/24 03:37 Labs: Abnormal Lab Results - Last 24 Hours (Table) 08/01/24 08/01/24 Range/Units 03:37 03:37 RBC 4.33 L (4.40-5.60) X 10*6/uL Calcium 8.6 L (8.7-10.3) mg/dL Alkaline Phosphatase 131 H (41-126) U/L Total Protein 5.4 L (6.2-8.2) g/dL Albumin 3.4 L (3.8-4.9) g/dL Microbiology - Last 24 Hours (Table) 07/29/24 19:40 Anaerobic Culture - Final Anal Bacteroides thetaiotaomicron Eggerthella species 07/29/24 19:40 Gram Stain - Final Buttock Wound Culture - Final Corynebacterium striatum group Assessment and Plan (1) Perirectal abscess Current Visit: Yes Status: Acute Code(s): K61.1 - RECTAL ABSCESS SNOMED Code(s): 86692622 (2) Leukocytosis Current Visit: Yes Status: Acute Code(s): D72.829 - ELEVATED WHITE BLOOD CELL COUNT, UNSPECIFIED SNOMED Code(s): 115829227 Plan: 1patient presented to hospital with increasing pain and swelling and drainage to the left perirectal/gluteal area concerning for possible abscess or fistula on the basis of the MRI that was completed at the outside facility and will need to cover for the enteric gram-negative both aerobes and anaerobes to be the likely pathogen 2patient initial surgical area was canceled as the patient ate his lunch and subsequently refusing drainage procedure as documented by the surgical note 3patient is afebrile the patient white count is normalized, local cultures currently growing bacteroids we will continue with Zosyn 3.375 g Q8 hourly for another 24 hours before transition him to oral antibiotics discussed in detail with the patient questions answered Dictation was produced using [employer] dictation software. please excuse any grammatical, word or spelling errors. Time with Patient: Less than 30
[2024-08-02 08:48] VITALS: BP 136/76; PULSE 75; TEMP 97.5
--- NOTE | 2024-08-02 13:24 | P.PN ---
Subjective Progress Note Date: 08/02/24 SURGICAL PROGRESS NOTE CHIEF COMPLAINT: Perirectal abscess HISTORY OF PRESENT ILLNESS: Patient reports that his pain has improved. CT scan pelvis completed yesterday reports decreased perirectal inflammatory changes with enhancing tract extending from the posterior left perianal region to the gluteal crease. This is consistent with fistula. No evidence of fluid collection. Afebrile. WBC 6.51 PHYSICAL EXAM: VITAL SIGNS: Reviewed. GENERAL: Well-developed in no acute distress. HEENT: No sclera icterus. Extraocular movements grossly intact. Moist buccal mucosa. Head is atraumatic, normocephalic. ABDOMEN: Soft. Nondistended. Nontender. NEUROLOGIC: Alert and oriented. Cranial nerves II through XII grossly intact. Rectum: Left buttock perianal draining sinus. No cellulitis. Mild tenderness with palpation. ASSESSMENT: 1. Perirectal abscess PLAN: -Patient can be discharge from surgical standpoint -Antibiotics per infectious disease -No surgical intervention planned Physician [employer] Operator note has been reviewed by physician. Signing provider agrees with the documented findings, assessment, and plan of care. Objective - Vital Signs Vital signs: Vital Signs Temp 97.5 F L 08/02/24 07:32 Pulse 75 08/02/24 07:32 Resp 18 08/02/24 07:32 BP 136/76 08/02/24 07:32 Pulse Ox 94 L 08/02/24 08:26 FiO2 Intake & Output 08/01/24 08/02/24 08/02/24 18:59 06:59 18:59 Other: Voiding Method Toilet Toilet # Voids 3 1 3 # Bowel Movements 1 2 - Labs CBC & Chem 7: 08/01/24 03:37 08/01/24 03:37
--- NOTE | 2024-08-02 14:22 | P.PN ---
Subjective Progress Note Date: 08/02/24 Principal diagnosis: Reason for follow-up is left perirectal abscess Patient is a 74-year-old male with a past medical history significant for Atrial Fibrillation, COPD, CVA/TIA, GERD/Reflux, Hyperlipidemia, Hypertension, Osteoarthritis (OA), Pneumonia, Sleep Apnea/CPAP/BIPAP, Vascular Disorder was transferred from [facility] with the patient was diagnosed with a possible left perirectal abscess/fistula. On today's evaluation that is 08/02/2024, the patient continues to be afebrile, the patient is on room air and breathing comfortably, the Pt denies having any chest pain or cough, the patient denies having any abdominal pain no vomiting or any diarrhea pain to the left gluteal area has decreased in intensity mention feeling better. Patient white count 6.51, creatinine 0.9 local culture growing bacteroids and corynebacterium patient did have a CT of the pelvis completed last evening did not show any abscess Objective - Vital Signs Vital signs: Vital Signs Temp 97.5 F L 08/02/24 07:32 Pulse 75 08/02/24 07:32 Resp 18 08/02/24 07:32 BP 136/76 08/02/24 07:32 Pulse Ox 94 L 08/02/24 08:26 FiO2 Intake & Output 08/01/24 08/02/24 08/02/24 18:59 06:59 18:59 Other: Voiding Method Toilet Toilet # Voids 3 1 3 # Bowel Movements 1 2 - Exam GENERAL DESCRIPTION: An elderly male lying in bed in no distress RESPIRATORY SYSTEM: Unlabored breathing , decreased breath sounds at bases HEART: S1 S2 regular rate and rhythm , ABDOMEN: Soft , no tenderness EXTREMITIES: No edema feet - Labs CBC & Chem 7: 08/01/24 03:37 08/01/24 03:37 Assessment and Plan (1) Perirectal abscess Current Visit: Yes Status: Acute Code(s): K61.1 - RECTAL ABSCESS SNOMED Code(s): 36712627 (2) Leukocytosis Current Visit: Yes Status: Acute Code(s): D72.829 - ELEVATED WHITE BLOOD CELL COUNT, UNSPECIFIED SNOMED Code(s): 827457664 Plan: 1patient presented to hospital with increasing pain and swelling and drainage to the left perirectal/gluteal area concerning for possible abscess or fistula on the basis of the MRI that was completed at the outside facility and will need to cover for the enteric gram-negative both aerobes and anaerobes to be the likely pathogen 2patient initial surgical area was canceled as the patient ate his lunch and subsequently refusing drainage procedure as documented by the surgical note 3patient is afebrile the patient white count is normalized, local cultures currently growing bacteroids with repeat CT did not show any evidence of any abscess surgery has cleared the patient for discharge, discussed with the [employer] TECHNICIAN for admitting team, will recommend a 10-day course of oral Ceftin and Flagyl on discharge question concern answered Dictation was produced using [employer] dictation software. please excuse any grammatical, word or spelling errors. Time with Patient: Less than 30
== END 2024-08-02 15:34 | disposition home or self-care (01) | DRG 394 ==
LOC: EC 13:49 → 4SSUR 15:15
PROVIDERS: ADMIT Hospitalist; ATTEND Hospitalist
DX: K60.40 Rectal fistula, unspecified (principal); K62.5 Hemorrhage of anus and rectum; I25.10 Atherosclerotic heart disease of native coronary artery without angina pectoris; I10 Essential (primary) hypertension; I73.9 Peripheral vascular disease, unspecified; J44.9 Chronic obstructive pulmonary disease, unspecified; I48.91 Unspecified atrial fibrillation; E78.5 Hyperlipidemia, unspecified; D72.829 Elevated white blood cell count, unspecified; E66.9 Obesity, unspecified; K21.9 Gastro-esophageal reflux disease without esophagitis; F43.10 Post-traumatic stress disorder, unspecified; I25.2 Old myocardial infarction; Z88.5 Allergy status to narcotic agent; Z86.73 Personal history of transient ischemic attack (TIA), and cerebral infarction without residual deficits; Z87.891 Personal history of nicotine dependence; Z95.5 Presence of coronary angioplasty implant and graft; Z68.30 Body mass index [BMI] 30.0-30.9, adult
CPT/HCPCS: 72193; 80053; 81003; 85025; 85610; 87070; 87075; 87205; 93005; 94760; 96361; 96365; 96366; 96374; 99285